=== PATIENT | male | born 1960 | race African-American/Black ===

== ENCOUNTER 2020-01-04 17:50 | Inpatient (IN) | payer OTHER ==
[2020-01-04 19:09] VITALS: BMI 30.2
--- NOTE | 2020-01-04 19:31 | BHS.RME ---
Substance Use & Tx History - Substance Use History Heroin Substance amount: 10 bags Frequency of use: Daily Substance route: Inhalation (ex: sniffing or snorting) Date of Last Use: 01/04/20 - Last Treatment Date of last treatment: 05/04/2012-05/15/2012 Where was last treatment: Detox Physical/Psych/Mental Status - Behavior Eye Contact: Normal - Cooperativeness Cooperativeness: Reluctant - Thinking Thought Processes: Logical Thought content: Future oriented - Physical Health Problems Is patient presently having any pain?: Yes (generalized) Does patient presently have any injuries (include location): No Does patient currently have a fever: No Is patient : No COWS - Scale Resting Pulse: 2= AL 101-120 Sweatin=Flushed/Facial Moisture Restless Observation: 1= Difficult to Sit Still Pupil Size: 0= Normal to Room Light Bone or Joint Aches: 2= Severe Diffuse Aches Runny Nose/ Eye Tearin= Runny Nose/Eyes GI Upset > 30mins: 3= Vomiting/Diarrhea (vomiting x 3, diarrhea x 3) Tremor Observation: 2= Slight Tremor Visible Yawning Observation: 1= 1-2x During Session Anxiety or Irritability: 2=Irritable/Anxious Goose Flesh Skin: 3=Piloerection COWS Score: 20 Treatment Recommendation - Level of Care Level of Care: Opioid Treatment Program (OTP)
--- NOTE | 2020-01-04 21:09 | HP ---
COWS - Scale Resting Pulse: 2= DE 101-120 Sweatin=Flushed/Facial Moisture Restless Observation: 1= Difficult to Sit Still Pupil Size: 2= Moderately Dilated (Pupils = 3 mm) Bone or Joint Aches: 2= Severe Diffuse Aches Runny Nose/ Eye Tearin= Runny Nose/Eyes GI Upset > 30mins: 3= Vomiting/Diarrhea (vomiting x 3, diarrhea x 3) Tremor Observation: 4= Gross Tremor/Twitching Yawning Observation: 0= None Anxiety or Irritability: 2=Irritable/Anxious Goose Flesh Skin: 3=Piloerection COWS Score: 23 CIWA Score - Admission Criteria OASAS Guidelines: Admission for Medically Managed Detox: Requires at least one of the followin. CIWA greater than 12 2. Seizures within the past 24 hours 3. Delirium tremens within the past 24 hours 4. Hallucinations within the past 24 hours 5. Acute intervention needed for co occurring medical disorder 6. Acute intervention needed for co occurring psychiatric disorder 7. Severe withdrawal that cannot be handled at a lower level of care (continued vomiting, continued diarrhea, abnormal vital signs) requiring intravenous medication and/or fluids 8. Admitting History and Physical - Smoking History Smoking history: Never smoked - Alcohol/Substance Use Hx Alcohol Use: Yes Admission ROS [facility] - [facility] Chief Complaint: "Here to because I want to stop using heroin" Allergies/Adverse Reactions: Allergies Allergy/AdvReac Type Severity Reaction Status Date / Time No Known Allergies Allergy Verified 01/04/20 21:29 History of Present Illness: 59 yo w/ opioid withdrawal seeking detox. PAVAN: 0.0 UTox: FEN/MOP/BUP Denies seizures, blackouts, overdoses. Actively vomiting - Zofran ordered and given in [facility]. Heroin use since age 37. Uses 10 bags/day, Nasally. last used this afternoon. Has a Narcan kit @ home. Suboxone - illicit - last used yesterday - 4 mg. Alcohol use sincce age 19, Drinks 2 nips once/week. Denies nicotine use. PMHx; HTN, DM, PPD+ MHHx: Denies. Denies thoughts of harming self and others. SHx: Domiciled. Unemployed. Denies legal issues. Patient Name: Abel Carrington Date: 1960 Address: [address] [place] [address] Sex: Male Rx Written Rx Dispensed Drug Quantity Days Supply Prescriber Name Payment Method Dispenser 09/26/2019 09/29/2019 buprenorphine-naloxone 8-2 mg sl film 45 15 Michele Griffin Insurance [place] [employer] 09/19/2019 09/19/2019 buprenorphine-naloxone 8-2 mg sl film 30 10 LakRuben burkett MD Insurance [place] [employer] 09/07/2019 09/07/2019 buprenorphine-naloxone 8-2 mg sl film 30 10 LakRuben burkett MD Insurance [employer] 08/29/2019 08/29/2019 buprenorphine-naloxone 8-2 mg sl film 30 10 LakRuben burkett MD Insurance [employer] 08/20/2019 08/20/2019 suboxone 8 mg-2 mg sl film 30 10 LaksRuben MD Insurance [place] [employer] 08/13/2019 08/13/2019 buprenorphine-naloxone 8-2 mg sl film 21 7 Ruben Perry MD Medicaid [place] [employer] 08/06/2019 08/06/2019 suboxone 8 mg-2 mg sl film 15 5 LaksRuben MD Medicaid [place] [employer] 03/12/2019 03/12/2019 buprenorphine-naloxone 8-2 mg sl film 63 21 Sheldon Nur [place] [employer] 02/12/2019 02/12/2019 suboxone 8 mg-2 mg sl film 90 30 [place] [employer] 01/15/2019 01/15/2019 suboxone 8 mg-2 mg sl film 90 30 [place]ldon [place]ur [place] [employer] Date: 03/07/1961 Address: [address] [place] [address] Sex: Male Rx Written Rx Dispensed Drug Quantity Days Supply Prescriber Name Payment Method Dispenser 07/30/2019 07/30/2019 buprenorphine-naloxone 8-2 mg sl film 14 7 Ruben Perry MD Other [place] [employer] 07/23/2019 07/23/2019 buprenorphine-naloxone 8-2 mg sl film 14 7 Ruben Perry MD Other [employer] 07/16/2019 07/16/2019 buprenorphine-naloxone 8-2 mg sl film 14 7 Ruben Perry MD Other [place] [employer] 07/09/2019 07/09/2019 buprenorphine-naloxone 8-2 mg sl film 14 7 LaksRuben MD Other [employer] 07/02/2019 07/02/2019 buprenorphine-naloxone 8-2 mg sl film 14 7 LaksRuben MD Other [employer] Exam Limitations: No Limitations - Ebola screening Have you traveled outside of the country in the last 21 days: No (COVID in past. ) Have you had contact with anyone from an Ebola affected area: No Have you been sick,other than usual withdrawal symptoms: No Do you have a fever: No - Review of Systems Constitutional: Chills, Diaphoresis, Changes in sleep (Difficulty staying asleep) EENT: reports: Blurred Vision, Nose Congestion Respiratory: reports: No Symptoms reported Cardiac: reports: No Symptoms Reported GI: reports: Nausea, Vomiting : reports: No Symptoms Reported Musculoskeletal: reports: No Symptoms Reported Integumentary: reports: No Symptoms Reported Neuro: reports: Headache (Frontal achy headache "6"), Tremors Endocrine: reports: No Symptoms Reported Hematology: reports: No Symptoms Reported Psychiatric: reports: Agitated, Anxious Other Systems: Reviewed and Negative Patient History - Patient Medical History Hx Anemia: No Hx Asthma: No Hx Chronic Obstructive Pulmonary Disease (COPD): No Hx Cancer: No Hx Cardiac Disorders: No Hx Congestive Heart Failure: No Hx Hypertension: No Hx Hypercholesterolemia: No Hx Pacemaker: No HX Cerebrovascular Accident: No Hx Seizures: No Hx Dementia: No Hx Diabetes: Yes (on medication) Hx Gastrointestinal Disorders: No Hx Liver Disease: No Hx Genitourinary Disorders: No Hx Sexually Transmitted Disorders: No Hx Renal Disease (ESRD): No Hx Thyroid Disease: No Hx Human Immunodeficiency Virus (HIV): No Hx Hepatitis C: No Hx Depression: No Hx Suicide Attempt: No Hx Bipolar Disorder: No Hx Schizophrenia: No - Patient Surgical History Past Surgical History: No Hx Neurologic Surgery: No Hx Cataract Extraction: No Hx Cardiac Surgery: No Hx Lung Surgery: No Hx Breast Surgery: No Hx Breast Biopsy: No Hx Abdominal Surgery: No Hx Appendectomy: No Hx Cholecystectomy: No Hx Genitourinary Surgery: No Hx Orthopedic Surgery: No Anesthesia Reaction: No - PPD History Previous Implant?: Yes Documented Results: Positive w/proof Implanted On Prior R Admission?: Yes Date: 01/25/11 Results: positive PPD to be Administered?: No - Smoking Cessation Smoking history: Never smoked Hx Chewing Tobacco Use: No Initiated information on smoking cessation: No - Substance & Tx. History Hx Alcohol Use: No Hx Substance Use: Yes Substance Use Type: Alcohol, Heroin, Opiates Hx Substance Use Treatment: Yes (detox, rehab, past Suboxone) - Substances abused Heroin Substance route: Inhalation Frequency: Daily Amount used: 10 bags Age of first use: 37 Date of last use: 01/04/20 Admission Physical Exam [facility] - Vital Signs Vital Signs: Vital Signs - 24 hr 01/04/20 19:06 Temperature 96.8 F L Pulse Rate 104 H Respiratory 21 H Rate Blood Pressure 166/97 - Physical General Appearance: Yes: Nourished, Moderate Distress, Obese, Tremorous, Irritable, Sweating, Anxious HEENTM: Yes: EOMI, Hearing grossly Normal, Normocephalic, Normal Voice, ROMÁN (Pupils = 3 mm), Pharynx Normal, Nasal Congestion Respiratory: Yes: Lungs Clear, Normal Breath Sounds, No Respiratory Distress Neck: Yes: No masses,lesions,Nodules, Supple Breast: Yes: Breast Exam Deferred Cardiology: Yes: Regular Rhythm, Regular Rate, S1, S2 Abdominal: Yes: Flat, Soft, Increased Bowel Sounds, Protuberent, Tenderness (Mid epigastric tenderness upon palpation. No guarding. No rebound.), Other (Active vomiting) Genitourinary: Yes: Within Normal Limits Back: Yes: Normal Inspection Musculoskeletal: Yes: full range of Motion, Gait Steady Extremities: Yes: Normal Capillary Refill, Tremors Neurological: Yes: Fully Oriented, Alert, Motor Strength 5/5, Normal Response Integumentary: Yes: Normal Color, Warm, Moist (Increased facial moisture) Lymphatic: Yes: Within Normal Limits - Diagnostic (1) Alcohol use disorder Current Visit: Yes Status: Chronic (2) Opioid dependence with withdrawal Current Visit: Yes Status: Acute (3) Obesity (BMI 30.0-34.9) Current Visit: Yes Status: Chronic (4) Epigastric abdominal tenderness Current Visit: Yes Status: Acute Qualifiers: Presence of rebound: present Qualified Code(s): R10.826 - Epigastric rebound abdominal tenderness Comment: No guarding. No rebound. (5) DM Diabetes mellitus type 2 Current Visit: No Status: Active (6) History of positive PPD Current Visit: Yes Status: Chronic Cleared for Admission [facility] - Detox or Rehab [facility] Level of Care: Medically Managed Detox Regimen/Protocol: Methadone Claeared for Rehab Admission: No Breathalyzer - Breathalyzer Breathalyzer: 0 Urine Drug Screen - Test Device Lot number: [id number] Expiration date: 11/19/21 - Control Is test valid?: Yes - Results Drug screen NEGATIVE: No Urine drug screen results: FEN-Fentanyl, MOP-Opiates, BUP-Suboxone Inpatient Rehab Admission - Rehab Decision to Admit Inpatient rehab admission?: No
[2020-01-04] MEDS ORDERED: TRIMETHOBENZAMIDE HCL 200MG/2ML INJ IM ONE ×2 (21:11→21:41)
[2020-01-04] MEDS ORDERED: ONDANSETRON *ODT* 4 MG TABLET SL ONE (21:16)
[2020-01-04] MEDS ORDERED: ONDANSETRON *ODT* 4 MG TABLET ONE (21:26)
[2020-01-04] MEDS ORDERED: ACETAMINOPHEN 325 MG TABLET (FP) PO PRN ×2 (21:35)
[2020-01-04] MEDS ORDERED: METHOCARBAMOL 500 MG TABLET PO PRN (21:35)
[2020-01-04] MEDS ORDERED: MAGNESIUM HYDROX 2400MG/30ML ORAL SUSPENSION 30 ML CUP PO PRN (21:35)
[2020-01-04] MEDS ORDERED: NICOTINE POLACRILEX 2 MG GUM BUC PRN (21:35)
[2020-01-04] MEDS ORDERED: IBUPROFEN 400 MG TABLET (FP) PO PRN (21:35)
[2020-01-04] MEDS ORDERED: MAG HYDROX/AL HYDROX/SIMETH 30 ML UNIT-DOSE CUP PO PRN (21:35)
[2020-01-04] MEDS ORDERED: BISMUTH SUBSALICYLATE 524 MG/30 ML UD PO PRN (21:35)
[2020-01-04] MEDS ORDERED: cloNIDine HCL 0.1 MG TABLET PO PRN (21:35)
[2020-01-04] MEDS ORDERED: hydrOXYzine PAMOATE 25 MG CAPSULE (FP) PO PRN (21:35)
[2020-01-04] MEDS ORDERED: MENTHOL/PHENOL 1 EACH UD MM PRN (21:35)
[2020-01-04] MEDS ORDERED: METHADONE HCL 10 MG TABLET (FOR DETOX USE ONLY) PO ONE (21:35)
[2020-01-04] MEDS ORDERED: MAGNESIUM CITRATE 300 ML BOTTLE PO PRN (21:35)
[2020-01-04] MEDS ORDERED: ONDANSETRON *ODT* 4 MG TABLET SL PRN (21:35)
[2020-01-04] MEDS ORDERED: diazePAM 5 MG TABLET PO PRN (21:40)
[2020-01-04] MEDS ORDERED: PANTOPRAZOLE 20 MG TABLET PO ONE (21:46)
[2020-01-04] MEDS ORDERED: MELATONIN 5 MG TABLETS PO SCH (22:00)
[2020-01-04] MEDS ORDERED: THIAMINE HCL 100 MG TABLET (FP) PO SCH (22:00)
[2020-01-04] MEDS ORDERED: INSULIN (NOVOLOG) ASPART 100 UNITS/ML 10ML VIAL SQ ONE (23:34)
[2020-01-04] MEDS ORDERED: INSULIN SLIDING SCALE (NOVOLOG) 1 VIAL SQ ONE (23:40)
[2020-01-05 01:48] VITALS: TEMP 97.7
--- NOTE | 2020-01-05 02:04 | PN ---
[facility] Progress Note Note: Patient is vomiting coffee ground emesis intermittently. His blood sugar is over 600mg/dl. He is very weak and lethargic. 10 units of insulin administered SQ, blood sugar rechecked an hour later and is still over 600mg/dl. Patient is hypertensive, tarchycardic and unable to hold down fluid. Patient is to be transferred to emergency room for further evaluation. Endorsed to Dr. Kebede Vital Signs Temperature 97.7 F 01/05/20 01:46 Pulse Rate 121 H 01/05/20 02:04 Respiratory Rate 20 01/05/20 02:04 Blood Pressure 161/92 01/05/20 02:04 O2 Sat by Pulse Oximetry (%) 97 01/05/20 01:46 Laboratory Last Values POC Glucometer > 600 UNITS (80-120) 01/05/20 01:36 Action: Transfer patient to emergency room
[2020-01-05 02:05] VITALS: BP 161/92; PULSE 121
--- NOTE | 2020-01-05 09:04 | EKG ---
Test Reason : Blood Pressure : / mmHG Vent. Rate : 104 BPM Atrial Rate : 104 BPM P-R Int : 130 ms QRS Dur : 086 ms QT Int : 362 ms P-R-T Axes : 054 -03 -01 degrees QTc Int : 476 ms SINUS TACHYCARDIA NONSPECIFIC ST ABNORMALITY ABNORMAL ECG NO PREVIOUS ECGS AVAILABLE Confirmed by Ceci Guzmán ([id number]) on 01/05/2020 9:03:41 AM Referred By: Confirmed By:Ceci Guzmán
[2020-01-05] MEDS ORDERED: METHADONE (DETOX) 20 MG, METHADONE (DETOX) 5 MG PO ONE (10:00)
[2020-01-05] MEDS ORDERED: PANTOPRAZOLE 40 MG TABLET PO SCH (10:00)
[2020-01-05] MEDS ORDERED: PRENATAL VITAMINS W/ FOLIC ACID TABLET (FP) PO SCH (10:00)
[2020-01-06] MEDS ORDERED: METHADONE HCL 10 MG TABLET (FOR DETOX USE ONLY) PO ONE (10:00)
[2020-01-07] MEDS ORDERED: METHADONE (DETOX) 10 MG, METHADONE (DETOX) 5 MG PO ONE (10:00)
[2020-01-08] MEDS ORDERED: METHADONE HCL 10 MG TABLET (FOR DETOX USE ONLY) PO ONE (10:00)
[2020-01-09] MEDS ORDERED: METHADONE HCL 5 MG TABLET (FOR DETOX USE ONLY) PO ONE (06:00)
== END 2020-01-05 08:12 | disposition short-term general hospital (02) | DRG 773 ==
LOC: YASAS 17:50 → Y6N 21:45
PROVIDERS: ADMIT Allergy & Immunology; ATTEND Allergy & Immunology
PROC: HZ2ZZZZ Detoxification Services for Substance Abuse Treatment (ICD-10-PCS; principal; 2020-01-04)
DX: F11.23 Opioid dependence with withdrawal (principal); F10.10 Alcohol abuse, uncomplicated; K92.0 Hematemesis; R00.0 Tachycardia, unspecified; I10 Essential (primary) hypertension; E11.65 Type 2 diabetes mellitus with hyperglycemia; E66.9 Obesity, unspecified; Z68.30 Body mass index [BMI] 30.0-30.9, adult; R10.826 Epigastric rebound abdominal tenderness; R76.11 Nonspecific reaction to tuberculin skin test without active tuberculosis; Z79.84 Long term (current) use of oral hypoglycemic drugs; Z59.0 Homelessness
CPT/HCPCS: 82962; 93005; 93010; Q0162; U0003

== ENCOUNTER 2020-01-05 02:33 | Inpatient (IN) | payer OTHER ==
--- NOTE | 2020-01-05 03:16 | PDOC ---
Attending Attestation - Resident Resident Name: CabreraRuben - ED Attending Attestation I have performed the following: I have examined & evaluated the patient, The case was reviewed & discussed with the resident, I agree w/resident's findings & plan - HPI HPI: 01/05/20 03:59 Pt comes with elevated blood sugar; he has been vomiting since he quit heroin 3 days ago. Pt was given 10U reg insulin and yet his blood sugar is still is 600mg He vomited up his methadone. We will give more methadone here. - Physicial Exam PE: 01/05/20 04:00 Agree with resident exam - Medical Decision Making 01/05/20 04:01 Pt will be hydrated and get more reg insulin and methadone. 01/05/20 06:17 Pt has a blood sugar of 666; corrected Na of 142. Pt has a low normal K; we will replete with 3 bags of 10 mEq K IVPB as well as 40mEq PO K= Pt will be hydrated with a 2nd L of NSS Pt will be started on an insulin drip. We spoke to the ICU and day team will transfer him to the ICU 01/05/20 07:02 Discharge - Discharge Information Problems reviewed: Yes Clinical Impression/Diagnosis: Hyperglycemia Condition: Fair - Follow up/Referral - Patient Discharge Instructions - Post Discharge Activity
--- OUTSIDE RECORDS SUMMARY | 2020-01-05 03:25 | XMS ---
:1960 Author Organization [facility] Support Name Relationship Address Phone UE Unavailable Unavailable Unavailable CURTIS SISTER [address] [place] [address] Re-disclosure Warning The records that you are about to access may contain information from federally- assisted alcohol or drug abuse programs. If such information is present, then the following federally mandated warning applies: This information has been disclosed to you from records protected by federal confidentiality rules (42 CFR part 2). The federal rules prohibit you from making any further disclosure of this information unless further disclosure is expressly permitted by the written consent of the person to whom it pertains or as otherwise permitted by 42 CFR part 2. A general authorization for the release of medical or other information is NOT sufficient for this purpose. The Federal rules restrict any use of the information to criminally investigate or prosecute any alcohol or drug abuse patient.The records that you are about to access may contain highly sensitive health information, the redisclosure of which is protected by Article 27-F of the [facility] Public Health law. If you continue you may haveaccess to information: Regarding HIV / AIDS; Provided by facilities licensed or operated by the [facility] Office of Mental Health; or Provided by the [facility] Office for People With Developmental Disabilities. If such information is present, then the following [facility] mandated warning applies: This information has been disclosed to you from confidential records which are protected by state law. State law prohibits you from making any further disclosure of this information without the specific written consent of the person to whom it pertains, or as otherwise permitted by law. Any unauthorized further disclosure in violation of state law may result in a fine or shelter sentence or both. A general authorization for the release of medical or other information is NOT sufficient authorization for further disclosure. Insurance Providers Payer name Policy type Policy ID Covered Covered libertarian's Policy P annie / Coverage libertarian ID relationship to Lloyd Inf ormation type lloyd MEDICAID [id number] SP [id number]
[2020-01-05] MEDS ORDERED: SODIUM CHLORIDE 1,000 ML IV ONE (03:56)
[2020-01-05] MEDS ORDERED: METHADONE (DETOX) 20 MG, METHADONE (DETOX) 5 MG PO ONE (04:00)
--- NOTE | 2020-01-05 04:46 | PDOC ---
History of Present Illness - General Stated Complaint: VOMITING Time Seen by Provider: 01/05/20 03:15 History Source: Patient Exam Limitations: No Limitations - History of Present Illness Initial Comments: 01/05/20 04:54 59M PMH IDDM, heroin dependent sent from [facility] for 3 days of vomiting and hyperglycemia >600. Has not used heroin (nasally) x3 days. Vomiting and PO intolerance since stopping heroin; also having cramps. States this feels like withdrawal. Endorsing mild polyuria and mild increase in thirst. Denies f/c, n/v, dysuria, diarrhea, cp/sob, cough, sore throat. 10U insulin en route. Past History - Medical History Allergies/Adverse Reactions: Allergies Allergy/AdvReac Type Severity Reaction Status Date / Time No Known Allergies Allergy Verified 01/04/20 21:29 Home Medications: Ambulatory Orders metFORMIN HCL [Glucophage] 850 mg PO BID@0700,1630 05/04/12 Anemia: No Asthma: No Cancer: No Cardiac Disorders: No CVA: No COPD: No CHF: No Dementia: No Diabetes: Yes (on medication) GI Disorders: No Disorders: No HTN: No Hypercholesterolemia: No Kidney Stones: No Liver Disease: No Seizures: No Thyroid Disease: No - Surgical History Abdominal Surgery: No Appendectomy: No Cardiac Surgery: No Cholecystectomy: No Lung Surgery: No Neurologic Surgery: No Orthopedic Surgery: No - Reproductive History Testicular Surgery: No - Psycho-Social/Smoking History Smoking History: Never smoked Review of Systems - Review of Systems Comments:: 01/05/20 08:09 CONSTITUTIONAL: Denies F / C HEENT: Denies sore throat, rhinorrhea RESP: Denies SOB, cough CARD: Denies chest pain GI: +n/v, cramp : +frequency. Denies dysuria NEURO: Denies numbness, tingling, weakness MSK: Denies back pain SKIN: Denies rashes *Physical Exam - Physical Exam 01/05/20 08:09 GEN: NAD, AAOx3. HEENT: NC/AT, EOMI, PERRL. No facial asymmetry. Normal voice. Supple neck w/ FROM. CV: S1/S2, RRR, no m/r/g LUNG: CTAB, no wheezes, crackles, rales, rhonchi. GI: Soft, ndnt, +BS, no guarding, no rebound. No masses. MSK: No obvious deformities of all extremities. SKIN: Warm, dry, no rashes appreciated. PSYCH: Normal mood and affect. NEURO: Moving all extremities well. ED Treatment Course - LABORATORY CBC & Chemistry Diagram: 01/05/20 04:55 01/05/20 04:55 - RADIOLOGY Radiology Studies Ordered: Category Date Time Status CXRPORT [CHEST X-RAY PORTABLE*] [RAD] Stat Radiology 01/05/20 04:18 Ordered Medical Decision Making - Medical Decision Making 01/05/20 08:09 59M DM and opiate dependent with 3 days of vomiting and PO intolerant DDX DKA, HHS, withdrawal, UTI, other sources of infection - DKA labs - Fluids 01/05/20 06:18 labs reviewed w/ various abnormalities including elevated WBC, beta, anion gap, K3.4, glc 666 pH 7.39 likely HHS; mixed picture? pending UA Fluids, insulin gtt, K repletion ICU consulted admit 01/05/20 06:34 dw ICU resident; day team will see Discharge - Discharge Information Problems reviewed: Yes Clinical Impression/Diagnosis: Hyperglycemia, Opioid dependence Condition: Fair - Admission Yes - Follow up/Referral - Patient Discharge Instructions - Post Discharge Activity
[2020-01-05 05:15] LABS: BASO % 0.3 % (0-2.0); HEMOGLOBIN 16.6 GM/dL (11.7-16.9); LYMPH % 6.4 % (8-40); MCH 26.6 pg (25.7-33.7); MCHC 32.5 g/dl (32.0-35.9); MEAN CELL VOLUME 81.9 fl (80-96); MEAN PLT VOLUME 8.7 fl (7.5-11.1); MONO % 10.8 % (3.8-10.2); NEUT % 82.5 % (42.8-82.8); PLATELET COUNT 344 K/MM3 (134-434); RBC 6.24 M/mm3 (4.00-5.60); WHITE BLOOD COUNT 18.6 K/mm3 (4.0-10.0)
[2020-01-05 05:19] LABS: VENOUS BASE EXCESS -3.2 mmol/L (-2-2); VENOUS PCO2 34.8 mmHg (38-52); VENOUS PH 7.392 (7.310-7.410)
[2020-01-05 05:31] LABS: INR 1.07 (0.83-1.09); PROTHROMBIN TIME (PATIENT) 12.6 SEC (9.7-13.0)
[2020-01-05 05:34] LABS: ACTIVATED PTT 30.2 SECONDS (25.2-36.5)
[2020-01-05 05:45] LABS: ALBUMIN 3.9 g/dl (3.4-5.0); ALK PHOS 188 U/L (45-117); ANION GAP 19 MMOL/L (8-16); BLOOD UREA NITROGEN 27.9 mg/dL (7-18); CALCIUM 9.5 mg/dL (8.5-10.1); CHLORIDE 91 mmol/L (98-107); CO2 22 mmol/L (21-32); CREATININE 2.1 mg/dL (0.55-1.3); POTASSIUM 3.4 mmol/L (3.5-5.1); SGOT/AST 27 U/L (15-37); SGPT/ALT 27 U/L (13-61); SODIUM 132 mmol/L (136-145); TOT PROT 8.8 g/dl (6.4-8.2)
[2020-01-05] MEDS ORDERED: METHADONE HCL 10 MG TABLET ONE (05:49)
[2020-01-05] MEDS ORDERED: METHADONE HCL 5 MG TABLET ONE (05:50)
[2020-01-05] MEDS ORDERED: SODIUM CHLORIDE 0.9% 500 ML INFUS.BAG IV ONE ×2 (06:09)
[2020-01-05] MEDS ORDERED: POTASSIUM CHLORIDE TABS 20 MEQ TABLET.ER (FP) PO ONE ×2 (06:09→06:49)
[2020-01-05 06:11] LABS: GLUCOSE,RANDOM 666 mg/dL (74-106)
[2020-01-05] MEDS ORDERED: INSULIN REGULAR 100 UNITS in SODIUM CHLORIDE 99 ML IVPB SCH (06:30)
--- NOTE | 2020-01-05 07:21 | PDOC ---
*Physical Exam - Vital Signs Last Vital Signs Temp Pulse Resp BP Pulse Ox 99.7 F H 103 H 20 161/103 H 97 01/05/20 07:01 01/05/20 07:01 01/05/20 07:01 01/05/20 07:01 01/05/20 07:01 ED Treatment Course - LABORATORY CBC & Chemistry Diagram: 01/06/20 08:40 01/06/20 08:40 - ADDITIONAL ORDERS Additional order review: Laboratory Results 01/05/20 01/05/20 01/05/20 05:10 04:55 04:55 PT with INR 12.60 INR 1.07 PTT (Actin FS) 30.2 VBG pH 7.392 POC VBG pCO2 34.8 L POC VBG pO2 36.0 VBG HCO3 20.7 L VBG O2 Sat (Emmy) 69.0 L VBG Base Excess -3.2 L Sodium 132 L Potassium 3.4 L Chloride 91 L Carbon Dioxide 22 Anion Gap 19 H BUN 27.9 H Creatinine 2.1 H Est GFR (CKD-EPI)AfAm 39.04 Est GFR (CKD-EPI)NonAf 33.68 Random Glucose 666 H* Calcium 9.5 Total Bilirubin 1.0 AST 27 ALT 27 Alkaline Phosphatase 188 H Creatine Kinase 1192 H Creatine Kinase Index 0.3 CK-MB (CK-2) 4.6 H Troponin I < 0.02 Total Protein 8.8 H Albumin 3.9 Beta-Hydroxybutyrate 64.8 H 01/05/20 04:55 RBC 6.24 H MCV 81.9 MCHC 32.5 RDW 14.0 MPV 8.7 Neutrophils % 82.5 Lymphocytes % 6.4 L Monocytes % 10.8 H Eosinophils % 0.0 Basophils % 0.3 - Medications Given in the ED: ED Medications Discontinued Medications Generic Name Dose Route Start Last Admin Trade Name Freq PRN Reason Stop Dose Admin Sodium Chloride 1,000 mls @ 1,000 mls/hr 01/05/20 03:56 01/05/20 06:06 Normal Saline - IV 01/05/20 04:55 1,000 mls/hr ONCE ONE Administration Methadone HCl 20 mg/ Methadone 25 mg 01/05/20 04:00 01/05/20 06:06 HCl 5 mg PO 01/05/20 04:01 25 mg ONCE ONE Administration Potassium Chloride 40 meq 01/05/20 06:09 01/05/20 07:02 K-Dur - PO 01/05/20 06:10 Not Given ONCE ONE Sodium Chloride 1,000 ml 01/05/20 06:09 01/05/20 06:37 Normal Saline - IV 01/05/20 06:10 Not Given ONCE ONE Sodium Chloride 1,000 ml 01/05/20 06:09 01/05/20 06:36 Normal Saline - IV 01/05/20 06:10 1,000 ml ONCE ONE Administration Medical Decision Making - Medical Decision Making 01/05/20 07:21 Pt received on s/o from Dr. Cabrera. This is a 59 y/o male with hx of substance use disorder sent in from [facility] for elevated blood sugar. Labs reviewed. Laboratory Last Values WBC 18.6 K/mm3 (4.0-10.0) H 01/05/20 04:55 RBC 6.24 M/mm3 (4.00-5.60) H 01/05/20 04:55 Hgb 16.6 GM/dL (11.7-16.9) 01/05/20 04:55 Hct 51.0 % (35.4-49) H 01/05/20 04:55 MCV 81.9 fl (80-96) 01/05/20 04:55 MCH 26.6 pg (25.7-33.7) 01/05/20 04:55 MCHC 32.5 g/dl (32.0-35.9) 01/05/20 04:55 RDW 14.0 % (11.9-15.9) 01/05/20 04:55 Plt Count 344 K/MM3 (134-434) D 01/05/20 04:55 MPV 8.7 fl (7.5-11.1) 01/05/20 04:55 Absolute Neuts (auto) 15.4 K/mm3 (1.5-8.0) H 01/05/20 04:55 Neutrophils % 82.5 % (42.8-82.8) 01/05/20 04:55 Lymphocytes % 6.4 % (8-40) L 01/05/20 04:55 Monocytes % 10.8 % (3.8-10.2) H 01/05/20 04:55 Eosinophils % 0.0 % (0-4.5) 01/05/20 04:55 Basophils % 0.3 % (0-2.0) 01/05/20 04:55 Nucleated RBC % 0 % (0-0) 01/05/20 04:55 PT with INR 12.60 SEC (9.7-13.0) 01/05/20 04:55 INR 1.07 (0.83-1.09) 01/05/20 04:55 PTT (Actin FS) 30.2 SECONDS (25.2-36.5) 01/05/20 04:55 VBG pH 7.392 (7.310-7.410) 01/05/20 05:10 POC VBG pCO2 34.8 mmHg (38-52) L 01/05/20 05:10 POC VBG pO2 36.0 mmHg (28-48) 01/05/20 05:10 VBG HCO3 20.7 mmol/L (23-29) L 01/05/20 05:10 VBG O2 Sat (Emmy) 69.0 % (70-80) L 01/05/20 05:10 VBG Base Excess -3.2 mmol/L (-2-2) L 01/05/20 05:10 Sodium 132 mmol/L (136-145) L 01/05/20 04:55 Potassium 3.4 mmol/L (3.5-5.1) L 01/05/20 04:55 Chloride 91 mmol/L (98-107) L 01/05/20 04:55 Carbon Dioxide 22 mmol/L (21-32) 01/05/20 04:55 Anion Gap 19 MMOL/L (8-16) H 01/05/20 04:55 BUN 27.9 mg/dL (7-18) H 01/05/20 04:55 Creatinine 2.1 mg/dL (0.55-1.3) H 01/05/20 04:55 Est GFR (CKD-EPI)AfAm 39.04 01/05/20 04:55 Est GFR (CKD-EPI)NonAf 33.68 01/05/20 04:55 Random Glucose 666 mg/dL (74-106) H* 01/05/20 04:55 Calcium 9.5 mg/dL (8.5-10.1) 01/05/20 04:55 Total Bilirubin 1.0 mg/dL (0.2-1) 01/05/20 04:55 AST 27 U/L (15-37) 01/05/20 04:55 ALT 27 U/L (13-61) 01/05/20 04:55 Alkaline Phosphatase 188 U/L (45-117) H 01/05/20 04:55 Creatine Kinase 1192 U/L (26-308) H 01/05/20 04:55 Creatine Kinase Index 0.3 % (0.0-5.0) 01/05/20 04:55 CK-MB (CK-2) 4.6 ng/mL (0.5-3.6) H 01/05/20 04:55 Troponin I < 0.02 ng/ml (0.00-0.05) 01/05/20 04:55 Total Protein 8.8 g/dl (6.4-8.2) H 01/05/20 04:55 Albumin 3.9 g/dl (3.4-5.0) 01/05/20 04:55 Beta-Hydroxybutyrate 64.8 mg/dL (0.2-2.8) H 01/05/20 04:55 Case d/w ICU for admission. DDX includes HHS vs less likely DKA. 01/05/20 07:32 Pt started on insulin drip and fluids. Will order urine lytes and serum/urine osms. 01/05/20 12:33 Repeat BMP reviewed. Gap at 19. Will continue to give fluids and insulin. Laboratory Last Values WBC 18.6 K/mm3 (4.0-10.0) H 01/05/20 04:55 RBC 6.24 M/mm3 (4.00-5.60) H 01/05/20 04:55 Hgb 16.6 GM/dL (11.7-16.9) 01/05/20 04:55 Hct 51.0 % (35.4-49) H 01/05/20 04:55 MCV 81.9 fl (80-96) 01/05/20 04:55 MCH 26.6 pg (25.7-33.7) 01/05/20 04:55 MCHC 32.5 g/dl (32.0-35.9) 01/05/20 04:55 RDW 14.0 % (11.9-15.9) 01/05/20 04:55 Plt Count 344 K/MM3 (134-434) D 01/05/20 04:55 MPV 8.7 fl (7.5-11.1) 01/05/20 04:55 Absolute Neuts (auto) 15.4 K/mm3 (1.5-8.0) H 01/05/20 04:55 Neutrophils % 82.5 % (42.8-82.8) 01/05/20 04:55 Lymphocytes % 6.4 % (8-40) L 01/05/20 04:55 Monocytes % 10.8 % (3.8-10.2) H 01/05/20 04:55 Eosinophils % 0.0 % (0-4.5) 01/05/20 04:55 Basophils % 0.3 % (0-2.0) 01/05/20 04:55 Nucleated RBC % 0 % (0-0) 01/05/20 04:55 PT with INR 12.60 SEC (9.7-13.0) 01/05/20 04:55 INR 1.07 (0.83-1.09) 01/05/20 04:55 PTT (Actin FS) 30.2 SECONDS (25.2-36.5) 01/05/20 04:55 VBG pH 7.392 (7.310-7.410) 01/05/20 05:10 POC VBG pCO2 34.8 mmHg (38-52) L 01/05/20 05:10 POC VBG pO2 36.0 mmHg (28-48) 01/05/20 05:10 VBG HCO3 20.7 mmol/L (23-29) L 01/05/20 05:10 VBG O2 Sat (Emmy) 69.0 % (70-80) L 01/05/20 05:10 VBG Base Excess -3.2 mmol/L (-2-2) L 01/05/20 05:10 Sodium 137 mmol/L (136-145) 01/05/20 10:36 Potassium 3.6 mmol/L (3.5-5.1) 01/05/20 10:36 Chloride 96 mmol/L (98-107) L 01/05/20 10:36 Carbon Dioxide 22 mmol/L (21-32) 01/05/20 10:36 Anion Gap 19 MMOL/L (8-16) H 01/05/20 10:36 BUN 31.3 mg/dL (7-18) H 01/05/20 10:36 Creatinine 1.9 mg/dL (0.55-1.3) H 01/05/20 10:36 Est GFR (CKD-EPI)AfAm 44.06 01/05/20 10:36 Est GFR (CKD-EPI)NonAf 38.01 01/05/20 10:36 POC Glucometer 375 UNITS (80-120) 01/05/20 11:12 Random Glucose 461 mg/dL (74-106) H* 01/05/20 10:36 Calcium 10.1 mg/dL (8.5-10.1) 01/05/20 10:36 Total Bilirubin 1.0 mg/dL (0.2-1) 01/05/20 04:55 AST 27 U/L (15-37) 01/05/20 04:55 ALT 27 U/L (13-61) 01/05/20 04:55 Alkaline Phosphatase 188 U/L (45-117) H 01/05/20 04:55 Creatine Kinase 1192 U/L (26-308) H 01/05/20 04:55 Creatine Kinase Index 0.3 % (0.0-5.0) 01/05/20 04:55 CK-MB (CK-2) 4.6 ng/mL (0.5-3.6) H 01/05/20 04:55 Troponin I < 0.02 ng/ml (0.00-0.05) 01/05/20 04:55 Total Protein 8.8 g/dl (6.4-8.2) H 01/05/20 04:55 Albumin 3.9 g/dl (3.4-5.0) 01/05/20 04:55 Beta-Hydroxybutyrate 64.8 mg/dL (0.2-2.8) H 01/05/20 04:55 Urine Color Yellow 01/05/20 09:42 Urine Appearance Clear 01/05/20 09:42 Urine pH 5.0 (5.0-8.0) D 01/05/20 09:42 Ur Specific [place] 1.036 (1.010-1.035) H 01/05/20 09:42 Urine Protein 1+ (NEGATIVE) H 01/05/20 09:42 Urine Glucose (UA) 3+ (NEGATIVE) H 01/05/20 09:42 Urine Ketones 3+ (NEGATIVE) H 01/05/20 09:42 Urine Blood 2+ (NEGATIVE) H 01/05/20 09:42 Urine Nitrite Negative (NEGATIVE) 01/05/20 09:42 Urine Bilirubin Negative (NEGATIVE) 01/05/20 09:42 Urine Urobilinogen 0.2 mg/dL (0.2-1.0) 01/05/20 09:42 Ur Leukocyte Esterase Negative (NEGATIVE) 01/05/20 09:42 Urine WBC (Auto) 4 /uL (0-25.8) 01/05/20 09:42 Urine RBC (Auto) 7 /uL (0-23.9) 01/05/20 09:42 Urine Casts (Auto) 2 /uL (0-3.1) 01/05/20 09:42 U Epithel Cells (Auto) 3 /uL (0-25.1) 01/05/20 09:42 Urine Bacteria (Auto) 7 /uL (0-1359) 01/05/20 09:42 Urine Osmolality 704 mosm/kg (300-900) 01/05/20 09:42 Ur Random Creatinine 39.3 mg/dL (30-150) 01/05/20 09:42 U Random Total Protein 42.6 mg/dL (0-11.9) H 01/05/20 09:42 Ur Random Sodium < 18 MMOL/L (40-220) L 01/05/20 09:42 01/05/20 15:20 Case d/w Dr. Francisco Keller who accepts the pt for admission. Labs reviewed. Laboratory Tests 01/05/20 01/05/20 01/05/20 04:55 04:55 04:55 WBC 18.6 H RBC 6.24 H Hgb 16.6 Hct 51.0 H MCV 81.9 MCH 26.6 MCHC 32.5 RDW 14.0 Plt Count 344 D MPV 8.7 Absolute Neuts (auto) 15.4 H Neutrophils % 82.5 Lymphocytes % 6.4 L Monocytes % 10.8 H Eosinophils % 0.0 Basophils % 0.3 Nucleated RBC % 0 PT with INR 12.60 INR 1.07 PTT (Actin FS) 30.2 VBG pH POC VBG pCO2 POC VBG pO2 VBG HCO3 VBG O2 Sat (Emmy) VBG Base Excess Sodium 132 L Potassium 3.4 L Chloride 91 L Carbon Dioxide 22 Anion Gap 19 H BUN 27.9 H Creatinine 2.1 H Est GFR (CKD-EPI)AfAm 39.04 Est GFR (CKD-EPI)NonAf 33.68 Random Glucose 666 H* Hemoglobin A1c % Calcium 9.5 Total Bilirubin 1.0 AST 27 ALT 27 Alkaline Phosphatase 188 H Creatine Kinase 1192 H Creatine Kinase Index 0.3 CK-MB (CK-2) 4.6 H Troponin I < 0.02 Total Protein 8.8 H Albumin 3.9 Triglycerides 346 H Cholesterol 324 H Total LDL Cholesterol 215 H HDL Cholesterol 58 Beta-Hydroxybutyrate 64.8 H 01/05/20 01/05/20 05:10 05:30 WBC RBC Hgb Hct MCV MCH MCHC RDW Plt Count MPV Absolute Neuts (auto) Neutrophils % Lymphocytes % Monocytes % Eosinophils % Basophils % Nucleated RBC % PT with INR INR PTT (Actin FS) VBG pH 7.392 POC VBG pCO2 34.8 L POC VBG pO2 36.0 VBG HCO3 20.7 L VBG O2 Sat (Emmy) 69.0 L VBG Base Excess -3.2 L Sodium Potassium Chloride Carbon Dioxide Anion Gap BUN Creatinine Est GFR (CKD-EPI)AfAm Est GFR (CKD-EPI)NonAf Random Glucose Hemoglobin A1c % 13.7 H Calcium Total Bilirubin AST ALT Alkaline Phosphatase Creatine Kinase Creatine Kinase Index CK-MB (CK-2) Troponin I Total Protein Albumin Triglycerides Cholesterol Total LDL Cholesterol HDL Cholesterol Beta-Hydroxybutyrate Discharge - Discharge Information Problems reviewed: Yes Clinical Impression/Diagnosis: Hyperglycemia, Opioid dependence Condition: Improved - Admission Yes - Follow up/Referral - Patient Discharge Instructions - Post Discharge Activity
[2020-01-05] MEDS ORDERED: KCL 10 MEQ IVPB 30 MEQ/300 ML INFUS.BAG IVPB ONE (08:12)
[2020-01-05] MEDS: KCL 10 MEQ IVPB 10 MEQ/100 ML INFUS.BAG IVPB SCH ×3 (08:15→12:54)
--- NOTE | 2020-01-05 08:53 | EKG ---
Test Reason : Blood Pressure : / mmHG Vent. Rate : 107 BPM Atrial Rate : 107 BPM P-R Int : 128 ms QRS Dur : 084 ms QT Int : 374 ms P-R-T Axes : 071 -17 001 degrees QTc Int : 499 ms SINUS TACHYCARDIA WITH OCCASIONAL PREMATURE VENTRICULAR COMPLEXES T WAVE ABNORMALITY, CONSIDER LATERAL ISCHEMIA ABNORMAL ECG WHEN COMPARED WITH ECG OF 04-JAN-2020 20:48, PREMATURE VENTRICULAR COMPLEXES ARE NOW PRESENT Confirmed by Ceci Guzmán ([id number]) on 01/05/2020 8:53:15 AM Referred By: Confirmed By:Ceci Guzmán
[2020-01-05 10:54] LABS: EPI CELLS 3 /uL (0-25.1); HYALINE CASTS 2 /uL (0-3.1); URINE APPEARANCE CLEAR; URINE BACTERIA 7 /uL (0-1359); URINE BILIRUBIN NEGATIVE (NEGATIVE); URINE COLOR YELLOW; URINE GLUCOSE (UA) 3+ (NEGATIVE); URINE KETONE 3+ (NEGATIVE); URINE LEUK ESTERASE NEGATIVE (NEGATIVE); URINE NITRITE NEGATIVE (NEGATIVE); URINE PROTEIN 1+ (NEGATIVE); URINE RBC 7 /uL (0-23.9); URINE UROBILINOGEN 0.2 mg/dL (0.2-1.0); URINE WBC 4 /uL (0-25.8)
[2020-01-05 11:45] LABS: BLOOD UREA NITROGEN 31.3 mg/dL (7-18); CALCIUM 10.1 mg/dL (8.5-10.1); CREATININE 1.9 mg/dL (0.55-1.3); POTASSIUM 3.6 mmol/L (3.5-5.1)
[2020-01-05 12:26] LABS: CREATININE, URINE RANDOM 39.3 mg/dL (30-150)
[2020-01-05 14:04] LABS: CALCIUM 9.9 mg/dL (8.5-10.1); CREATININE 2.1 mg/dL (0.55-1.3)
--- NOTE | 2020-01-05 15:26 | PN ---
Progress Note (short form) - Note Progress Note: S: 59 yo M with h/o T2DM, Heroin abuse who was admitted from [facility] last night due to NB/NB emesis and persistent hyperglycemia of 660. Patient was placed on insulin gtt due to suspected HHS and was accepted to ICU subsequently. Patient's anion gap at peak was 19 with most recent lab draw of 11. Bicarb never decreased past 21. Patient reports he's been diagnosed as a diabetic for 6 months for which he was prescribed Metformin. Patient reports he did not take his medication and he has been using heroin. Patient has long-standing history of heroin usage which is why he wanted to receive detoxification at [facility]. PMHx: as above SHx: None FamHx: DM both sides SoHx: Tobacco - None Alcohol - Socially (2 nips at one time /week) Drugs - Heroin last use afternoon 01/02; illicit use of Suboxone 01/02 Vital Signs Temperature 98.5 F 01/05/20 12:54 Pulse Rate 110 H 01/05/20 12:54 Respiratory Rate 19 01/05/20 12:54 Blood Pressure 128/90 01/05/20 12:54 O2 Sat by Pulse Oximetry (%) 99 01/05/20 12:54 PE: Gen: NAD, awake, alert, oriented x3 HEENT: NC/AT, MINAL, EOMI without nystagmus, dry mucosa Neck: No JVD LUNG: CTA b/l without wheezes or rales. On RA CARD: Tachycardic with regular rhythm, no murmrus ABD: Soft, Nt/ND, +BS EXT: No edema CBC, BMP 01/05/20 04:55 01/05/20 13:22 Assessment/Plan: Starvation Ketosis Hyperglycemia Acute Kidney Injury Reactive Leukocytosis Opiate Abuse Disorder requiring detox --Given correction of anion gap and hyperglycemia quickly with minimal insulin gtt suspect patient has starvation ketosis on top of hyperglycemia --Will transition patient off of insulin gtt to long-term therapy (previously prescribed 850mg BID PO Metformin; however noncompliant) --Continue IVF hydration --FeNa 0.7% indicating pre-renal azotemia --Avoid nephrotoxins --Will discuss with [facility] Detoxification facility about potential dispo either later in day vs. tomorrow AM based on patient trajectory --Imaging reviewed --Patient received Methadone 25mg dose today --Add-on A1c; add-on lipid panel --Insulin sliding scale for coverage --Can resume diabetic diet; will cover with long-acting insulin (Levemir 5U once; due to insulin naivety) Dispo: Will return to detox after acute issues have resolved DO Wilner Hoffman IM
--- OUTSIDE RECORDS SUMMARY | 2020-01-05 15:26 | XMS ---
:1960 Author Organization [facility] Support Name Relationship Address Phone UE, UNEMPLOYED Unavailable Unavailable Unavailable UE Unavailable Unavailable Unavailable LAZARO ACEVEDO [address] [place] [address] LAZARO ACEVEDO [address] [place] [address] Re-disclosure Warning The records that you are [...] is protected by Article 27-F of the [facility] Public Health law. If you continue you may haveaccess to information: Regarding HIV / AIDS; Provided by facilities licensed or operated by the [facility] Office of Mental Health; or Provided by the [facility] Office for People With Developmental Disabilities. If such information is present, then the following [facility] mandated warning applies: This information has [...] law may result in a fine or assisted sentence or both. A general authorization for the release of medical or other information is NOT sufficient authorization for further disclosure. Insurance Providers Payer name Policy type Policy ID Covered Covered democrat's Policy P annie / Coverage democrat ID relationship to [employer] Inf ormation type lloyd MEDICAID [id number]
[2020-01-05] MEDS ORDERED: SODIUM CHLORIDE 500 ML IV STA (15:36)
--- NOTE | 2020-01-05 15:36 | CONSULT ---
Consult - text type - Consultation Consultation Note: CCM: ICU admission request Reason for ICU request: hyperglycemia, AGMA CC/HPI: [id number] PMH IDDM, heroin dependent sent from [facility] after 3 days of vomiting and was noted to have hyperglycemia >600. Has not used heroin (nasally) x3 days. Vomiting and PO intolerance since stopping heroin; also having cramps, all c/w withdrawal. State he feels dehydrated. Denies f/c, n/v, dysuria, diarrhea, cp/sob, cough, sore throat. Ed course. Seen in ED. Pt was awake, INAD, hyperglycemic, had AG of 19. Beta Hydroxybuterate elevate >60. pH ok at 7.3. Given IV insulin and started on gtt . Also give 2L of IV fluid. Over the ensuing few hours patient's blood glucose improved and repeat labs improved with AG down to 11. Pt appears to have a combined picture of dehydration, resolving DKA and likely starvation ketosis. He has clinically improved. He blood glucose is under control. He wants to eat. He should be started on long acting insulin and sliding scale with insulin gtt stopped one hour after long acting agent given Allergies Allergy/AdvReac Type Severity Reaction Status Date / Time No Known Allergies Allergy Verified 01/04/20 21:29 PMHx: -IDDM -PSA PSx: denied Family: declined Social hx. + tob, + illicits, letoh PE: examined in ED Vital Signs Temp 98.5 F 01/05/20 12:54 Pulse 110 H 01/05/20 12:54 Resp 19 01/05/20 12:54 BP 128/90 01/05/20 12:54 Pulse Ox 99 01/05/20 12:54 Intake & Output 01/04/20 01/05/20 01/05/20 23:59 11:59 23:59 Weight 111.13 kg Other: Voiding Method Urinal Height 5 ft 9 in 6 ft Body Mass Index (BMI) 33.2 Weight Measurement Method Est/Stated by Patient Heent: PERRL, atraumatic, neck supple CV: regular, no m/r/g Abd: soft, + Bs Pulm: clear Ext: 2+ pulse in all 4 Neuro: non-focal CBC, BMP 01/05/20 04:55 01/05/20 13:22 A/ 59 y/o man with mix AGMA, likely starvation ketosis and DKA ,now improved on insulin and with hydration -Long acting insulin with sliding scale -cont hydration and electrolyte repletions as needed -symptom management. [place] ACNP
[2020-01-05] MEDS ORDERED: SODIUM CHLORIDE 0.45% 1,000 ML IV SCH (15:45)
[2020-01-05] MEDS ORDERED: INSULIN (LEVEMIR) 100 UNITS/ML UNITS SQ ONE (16:00)
[2020-01-05 16:41] LABS: BLOOD UREA NITROGEN 37.5 mg/dL (7-18); CREATININE 1.8 mg/dL (0.55-1.3); PHOSPHOROUS 2.3 mg/dL (2.5-4.9); POTASSIUM 4.5 mmol/L (3.5-5.1)
[2020-01-05] MEDS ORDERED: NAPH,MB-DB/K PH,MBDB POWDER PACKET PO ONE (16:42)
[2020-01-05] MEDS: INSULIN SLIDING SCALE (NOVOLOG) 1 VIAL SQ SCH ×2 (17:39→22:52)
[2020-01-05] MEDS ORDERED: NAPH,MB-DB/K PH,MBDB POWDER PACKET ONE (17:44)
[2020-01-06 03:18] LABS: CHOLESTEROL 324 mg/dL (50-200); HDL CHOLESTEROL 58 mg/dL (40-60); LDL CHOLESTEROL (ONLY SJRH) 215 mg/dL (5-100); TRIGLYCERIDES 346 mg/dL (0-150)
[2020-01-06] MEDS: INSULIN SLIDING SCALE (NOVOLOG) 1 VIAL SQ SCH ×2 (07:16→11:29)
[2020-01-06 09:44] LABS: BASO % 0.5 % (0-2.0); EOS % 0.1 % (0-4.5); HEMATOCRIT 51.5 % (35.4-49); HEMOGLOBIN 16.7 GM/dL (11.7-16.9); LYMPH % 6.3 % (8-40); MCH 26.4 pg (25.7-33.7); MCHC 32.4 g/dl (32.0-35.9); MEAN CELL VOLUME 81.4 fl (80-96); MONO % 10.8 % (3.8-10.2); NEUT % 82.3 % (42.8-82.8); PLATELET COUNT 319 K/MM3 (134-434); RBC 6.32 M/mm3 (4.00-5.60); RDW 14.3 % (11.9-15.9); WHITE BLOOD COUNT 22.6 K/mm3 (4.0-10.0)
[2020-01-06 10:01] LABS: ANION GAP 16 MMOL/L (8-16); BLOOD UREA NITROGEN 35.4 mg/dL (7-18); CALCIUM 9.1 mg/dL (8.5-10.1); CHLORIDE 99 mmol/L (98-107); CO2 24 mmol/L (21-32); CREATININE 1.6 mg/dL (0.55-1.3); GLUCOSE,RANDOM 306 mg/dL (74-106); MAGNESIUM 2.8 mg/dL (1.8-2.4); POTASSIUM 3.9 mmol/L (3.5-5.1); SODIUM 138 mmol/L (136-145)
[2020-01-06] MEDS ORDERED: SODIUM CHLORIDE 1,000 ML IV SCH ×2 (11:00→11:09)
[2020-01-06] MEDS ORDERED: METHADONE HCL 10 MG TABLET PO ONE ×2 (11:15→14:44)
--- NOTE | 2020-01-06 11:22 | PN ---
Progress Note (short form) - Note Progress Note: SUBJECTIVE: Seen and examined at bedside. Patient appears significantly uncomfortable, but is alert and oriented x3. States he is "kicking," meaning he is withdrawing. Gap noted to be at 16. Bicarb 24. Will restart fluids, give long-acting insulin and recheck BMP i #n 4 hours. OBJECTIVE Last Vital Signs Temp Pulse Resp BP Pulse Ox 99.2 F 84 18 147/91 100 01/06/20 07:26 01/06/20 07:26 01/06/20 07:26 01/06/20 07:26 01/06/20 07:26 GEN: NAD HEENT: NC/AT [facility] RESP: CTAB CARDS: RRR, -MRG ABD: soft, nt/nd +BS EXT: No swelling/Edema Neuro: Non-focal, A&OX3 Labs/Imaging: reviewed ASSESSMENT/PLAN 59-year-old male history of type 2 diabetes, heroin abuse was admitted from [facility] due to nonbloody nonbilious emesis and hyperglycemia to 660. Found to be in HOHS/DKA, rhabdomyolysis. #HHS/DKA in setting of uncontrolled diabetes with hyperglycemia Anion gap increased to 16 this morning, bicarb 24 ReCheck lactic acid and beta hydroxybutyrate Recheck BMP in 4 hours after giving long-acting insulin Fluids Replete potassium #Rhabdomyolysis with PHILIP Fluids at 150 cc/h Avoid nephrotoxic medications Trend creatinine, CPK #Elevated white count greater than 20 Patient denies any specific physical complaints other than withdrawals. Urine and chest x-ray are benign. Patient is afebrile Obtain CAT scan abdomen pelvis Blood cultures given history of heroin use will give 1 dose of ceftriaxone but hold further abx unless pt has fever or source of infection is found #Heroin Detox -methadone taper: today 20mg Visit type - Emergency Visit Emergency Visit: Yes ED Registration Date: 01/05/20 Care time: The patient presented to the Emergency Department on the above date and was hospitalized for further evaluation of their emergent condition. - New Patient This patient is new to me today: Yes Date on this admission: 01/06/20 - Critical Care Critical Care patient: No
[2020-01-06] MEDS ORDERED: CEFTRIAXONE 1,000 MG in DEXTROSE 5%-WATER - 50 ML IVPB ONE (11:23)
[2020-01-06] MEDS ORDERED: INSULIN (LEVEMIR) 100 UNITS/ML UNITS SQ ONE (11:25)
[2020-01-06] MEDS: INSULIN (LEVEMIR) 100 UNITS/ML UNITS SQ SCH ×2 (11:28→21:19)
[2020-01-06] MEDS ORDERED: CEFTRIAXONE 1 GM/50 ML BAG ONE (11:55)
[2020-01-06 12:58] LABS: ANISOCYTOSIS 0; MACROCYTOSIS 0; PLATELET ESTIMATE DECREASED
[2020-01-06 14:21] LABS: ANION GAP 19 MMOL/L (8-16); BLOOD UREA NITROGEN 33.7 mg/dL (7-18); CHLORIDE 99 mmol/L (98-107); CO2 20 mmol/L (21-32); CREATININE 1.4 mg/dL (0.55-1.3); GLUCOSE,RANDOM 290 mg/dL (74-106); SODIUM 137 mmol/L (136-145)
[2020-01-06] MEDS ORDERED: METHADONE HCL 10 MG TABLET ONE (15:33)
[2020-01-06] MEDS ORDERED: DEXTROSE 50%-WATER - 25 GM/50 ML VIAL IVPUSH PRN (16:11)
[2020-01-06] MEDS ORDERED: INSULIN REGULAR HUMAN 100 UNITS/ML *VIAL IVPUSH ONE ×2 (16:12→18:00)
[2020-01-06] MEDS ORDERED: SODIUM CHLORIDE 1,000 ML IV STA ×2 (16:13→21:57)
[2020-01-06] MEDS ORDERED: INSULIN REGULAR 100 UNITS in SODIUM CHLORIDE 99 ML IVPB SCH (16:15)
[2020-01-06 18:01] VITALS: BMI 29.5
[2020-01-06] MEDS: ONDANSETRON 4 MG/2 ML VIAL IVPUSH PRN (18:15)
[2020-01-06] MEDS ORDERED: DEXTROSE 5%-NORMAL SALINE 1,000 ML IV SCH (20:15)
--- NOTE | 2020-01-06 20:28 | PN ---
Progress Note (short form) - Note Progress Note: PULM/CCM 59 yo M with h/o T2DM, Heroin abuse who was admitted from [facility] due to NB/NB emesis and persistent hyperglycemia of 660. Patient was placed on insulin gtt du e to suspected HHS and was accepted to ICU. Patient reports he's been diagnosed as a diabetic for 6 months for which he was prescribed Metformin. Patient reports he did not take his medication and he has been using heroin. Patient has long-standing history of heroin usage which is why he wanted to receive detoxification at [facility]. Patient seen and examined in ICU. Patient awake, alert. Currently on insulin drip. Vital Signs Period Temp Pulse Resp BP Sys/Grey Pulse Ox Last 24 Hr 97.4 F-99.2 F 61-97 16-22 122-160/68-97 97-100 Active Medications Chlorhexidine Gluconate (Hibiclens For Decolonization -) 1 applic TP HS [facility] Dextrose (D50w (Vial) -) 25 gm IVPUSH PRN PRN PRN Reason: HYPOGLYCEMIA Insulin Human Regular 100 (units/ Sodium Chloride) 100 mls @ 11.113 mls/hr IVPB TITR ANDREWS; Protocol Last Admin: 01/06/20 17:37 Dose: 0.1 units/kg/hr, 11.113 mls/hr Documented by: Dextrose/Sodium Chloride (D5-Ns -) 1,000 mls @ 125 mls/hr IV ASDIR [facility] Insulin Detemir (Levemir Vial) 8 units SQ BID ANDREWS Last Admin: 01/06/20 11:28 Dose: 8 units Documented by: Mupirocin (Bactroban Ointment (For Decolonization) -) 1 applic NS BID [facility] Stop: 01/11/20 21:59 Ondansetron HCl (Zofran Injection) 4 mg IVPUSH Q6H PRN PRN Reason: NAUSEA Last Admin: 01/06/20 18:15 Dose: 4 mg Documented by: CBC, BMP 01/06/20 08:40 01/06/20 14:00 Heent: PERRL, atraumatic, neck supple CV: regular, no m/r/g Abd: soft, + Bs Pulm: clear Ext: 2+ pulse in all 4 Neuro: non-focal Intake & Output 01/03/20 01/04/20 01/05/20 01/06/20 23:59 23:59 23:59 23:59 Weight 111.13 kg 90.718 kg A/ 59 y/o man with mix AGMA admitted to the ICU for likely starvation ketosis and DKA. -Insulin gtt protocol -IVF -NPO for now -Zofran for N/V -cont hydration and electrolyte repletions as needed -Will check BMP q 4 hours -Will continue Levemir -D50W PRN for hypoglycemia Cande Keen ACNP [id number]
[2020-01-06 21:11] LABS: BLOOD UREA NITROGEN 33.1 mg/dL (7-18); CALCIUM 8.2 mg/dL (8.5-10.1); CREATININE 1.2 mg/dL (0.55-1.3); POTASSIUM 4.3 mmol/L (3.5-5.1)
[2020-01-06] MEDS: MUPIROCIN 2% TOPICAL OINTMENT FOR DECOLONIZATION NS SCH (21:21)
[2020-01-06] MEDS ORDERED: CHLORHEXIDINE GLUCONATE 4% CLEANSER FOR DECOLONIZATION TP SCH (22:00)
[2020-01-07] MEDS ORDERED: SODIUM CHLORIDE 1,000 ML IV STA (01:20)
[2020-01-07 01:39] LABS: BLOOD UREA NITROGEN 23.7 mg/dL (7-18); CALCIUM 7.4 mg/dL (8.5-10.1); POTASSIUM 3.3 mmol/L (3.5-5.1)
[2020-01-07] MEDS ORDERED: DEXTROSE 5%-NORMAL SALINE 1,000 ML IV SCH (02:15)
[2020-01-07] MEDS ORDERED: DEXTROSE 5%-WATER - 1,000 ML IV SCH (02:15)
[2020-01-07] MEDS: KCL 10 MEQ IVPB 10 MEQ/100 ML INFUS.BAG IVPB SCH ×2 (02:39→03:59)
[2020-01-07] MEDS: ONDANSETRON 4 MG/2 ML VIAL IVPUSH PRN (02:53)
[2020-01-07] MEDS ORDERED: METOPROLOL TARTRATE 5 MG/5 ML VIAL ONE ×2 (03:08→04:29)
[2020-01-07] MEDS: INSULIN SLIDING SCALE (NOVOLOG) 1 VIAL SQ SCH ×4 (05:59→22:22)
[2020-01-07] MEDS ORDERED: dilTIAZem HCL 25 MG/5 ML - 5 ML VIAL ONE (06:15)
[2020-01-07] MEDS ORDERED: METOPROLOL TARTRATE 5 MG/5 ML VIAL IVPUSH ONE ×2 (06:27)
[2020-01-07] MEDS ORDERED: DILTIAZEM INJECTION 125 MG in SODIUM CHLORIDE 100 ML IVPB SCH (06:30)
[2020-01-07] MEDS ORDERED: PT OWN MED DRAWER 7, Y5N ONE (09:45)
--- NOTE | 2020-01-07 10:13 | EKG ---
Test Reason : Blood Pressure : / mmHG Vent. Rate : 151 BPM Atrial Rate : 159 BPM P-R Int : 000 ms QRS Dur : 094 ms QT Int : 314 ms P-R-T Axes : 000 002 -41 degrees QTc Int : 497 ms ATRIAL FIBRILLATION WITH RAPID VENTRICULAR RESPONSE NONSPECIFIC T WAVE ABNORMALITY ABNORMAL ECG WHEN COMPARED WITH ECG OF 05-JAN-2020 05:26, ATRIAL FIBRILLATION HAS REPLACED SINUS RHYTHM T WAVE VARIATION Confirmed by HARSHAL PEREZ MD ([id number]) on 01/07/2020 10:12:51 AM Referred By: Confirmed By:HARSHAL PEREZ MD
[2020-01-07 10:32] LABS: HEMATOCRIT 43.5 % (35.4-49); HEMOGLOBIN 14.2 GM/dL (11.7-16.9); MCH 26.5 pg (25.7-33.7); MCHC 32.7 g/dl (32.0-35.9); MEAN CELL VOLUME 81.2 fl (80-96); MEAN PLT VOLUME 8.4 fl (7.5-11.1); PLATELET COUNT 240 K/MM3 (134-434); RBC 5.36 M/mm3 (4.00-5.60); RDW 13.9 % (11.9-15.9); WHITE BLOOD COUNT 11.3 K/mm3 (4.0-10.0)
[2020-01-07] MEDS: MUPIROCIN 2% TOPICAL OINTMENT FOR DECOLONIZATION NS SCH (10:45)
[2020-01-07] MEDS: INSULIN (LEVEMIR) 100 UNITS/ML UNITS SQ SCH ×2 (10:45→22:22)
[2020-01-07 11:13] LABS: BLOOD UREA NITROGEN 19.6 mg/dL (7-18); CALCIUM 7.7 mg/dL (8.5-10.1); MAGNESIUM 2.4 mg/dL (1.8-2.4); PHOSPHOROUS 2.9 mg/dL (2.5-4.9); POTASSIUM 3.9 mmol/L (3.5-5.1)
--- NOTE | 2020-01-07 12:52 | HOSP ---
Physical Examination Vital Signs: Vital Signs Temperature 98.6 F 01/07/20 10:00 Pulse Rate 70 01/07/20 11:37 Respiratory Rate 17 01/07/20 10:00 Blood Pressure 130/80 01/07/20 11:37 O2 Sat by Pulse Oximetry (%) 95 01/07/20 10:00 Constitutional: Yes: No Distress HENT: Yes: Atraumatic, Normocephalic Cardiovascular: Yes: Tachycardia, S1, S2 Respiratory: Yes: Regular, CTA Bilaterally Gastrointestinal: Yes: Normal Bowel Sounds Labs: CBC, BMP 01/07/20 10:12 01/07/20 10:12 Hospitalist Encounter Assessment: 59-year-old male history of type 2 diabetes & heroin use disorder was admitted from [facility] due to nonbloody nonbilious emesis. He was found to be hyperglycemic to 666 with a anion gap of 19 (with lactic acid 2.4), bicarb 22, and calculated osmolality of 311. VBG showed a pH WNL at 7.392 with /DECREASED HCO3 20.7, CO2 34.8. UA was notable for 3+ glucose, 3+ ketones and Beta hydroxybutyrate 64.8. Because the pH is >7.3, glucose>600 and bicarb >18, the patient likely has HHS. Patient was sent to ICU from the floor due to a worsening anion gap. Patient's clinical status improved with Insulin drip and anion gap has now closed. He is currently on ISS ACHS and levemir 8 units BID. With a UA showing 2+ Blood, 7 RBCs., and Cr kinase of 1192, BUN/Cr 27.9/2.1, patient had PHILIP 2/2 rhabdomylosis. Patient is receiving fluids at 150 ml/h. On Methadone taper at [facility]. Dosing is per order history on [employer] by Marion Perez NP. 15 mg PO (01/07/20) 10 mg PO (01/08/20) 5 mg PO 01/09/20 Visit type - Emergency Visit Emergency Visit: Yes ED Registration Date: 01/05/20 Care time: The patient presented to the Emergency Department on the above date and was hospitalized for further evaluation of their emergent condition. - New Patient This patient is new to me today: No - Critical Care Critical Care patient: No
--- NOTE | 2020-01-07 13:59 | PN ---
Teaching Attending Note Name of Resident: Silvestre Levy ATTENDING PHYSICIAN STATEMENT I saw and evaluated the patient. I reviewed the resident's note and discussed the case with the resident. I agree with the resident's findings and plan as documented. SUBJECTIVE: Patient seen and examined in the ICU. Awake and alert. Remains on IV Cardizem for rate control Denies CP or SOB. Intake & Output 01/04/20 01/05/20 01/06/20 01/07/20 23:59 23:59 23:59 23:59 Intake Total 1150 2382 Output Total 710 615 Balance 440 1767 Weight 245 lb 200 lb Last Vital Signs Temp Pulse Resp BP Pulse Ox 98.6 F 70 17 130/80 95 01/07/20 10:00 01/07/20 11:37 01/07/20 10:00 01/07/20 11:37 01/07/20 10:00 Active Medications Chlorhexidine Gluconate (Hibiclens For Decolonization -) 1 applic TP HS [facility] Last Admin: 01/06/20 21:21 Dose: 1 applic Documented by: Dextrose (D50w (Vial) -) 25 gm IVPUSH PRN PRN PRN Reason: HYPOGLYCEMIA Diltiazem HCl (Cardizem Cd -) 120 mg PO DAILY [facility] Last Admin: 01/07/20 12:33 Dose: 120 mg Documented by: Dextrose/Sodium Chloride (D5-Ns -) 1,000 mls @ 50 mls/hr IV ASDIR [facility] Last Admin: 01/07/20 02:39 Dose: 50 mls/hr Documented by: Insulin Aspart (Novolog Vial Sliding Scale -) 1 vial SQ ACHS [facility]; Protocol Last Admin: 01/07/20 12:04 Dose: 4 units Documented by: Insulin Detemir (Levemir Vial) 8 units SQ BID [facility] Last Admin: 01/07/20 10:45 Dose: 8 units Documented by: Methadone HCl 10 mg/ Methadone (HCl 5 mg) 15 mg PO ONCE ONE Stop: 01/07/20 13:35 Mupirocin (Bactroban Ointment (For Decolonization) -) 1 applic NS BID [facility] Stop: 01/11/20 21:59 Last Admin: 01/07/20 10:45 Dose: 1 applic Documented by: Ondansetron HCl (Zofran Injection) 4 mg IVPUSH Q6H PRN PRN Reason: NAUSEA Last Admin: 01/07/20 02:53 Dose: 4 mg Documented by: Heent: (-) Jaundice or Pallor CV: Afib, no m/r/g Abd: soft, + Bs Pulm: clear to auscultation Ext: 2+ pulse in all 4 Neuro: non-focal Laboratory Results - last 24 hr 01/06/20 01/06/20 01/06/20 08:40 14:00 16:54 WBC RBC Hgb Hct MCV MCH MCHC RDW Plt Count MPV Sodium 138 137 Potassium 3.9 5.0 Chloride 99 99 Carbon Dioxide 24 20 L Anion Gap 16 19 H BUN 35.4 H 33.7 H Creatinine 1.6 H 1.4 H Est GFR (CKD-EPI)AfAm 54.23 63.73 Est GFR (CKD-EPI)NonAf 46.79 54.99 POC Glucometer 296 Random Glucose 306 H 290 H Lactic Acid Calcium 9.1 9.0 Phosphorus Magnesium 2.8 H Creatine Kinase QNS Creatine Kinase Index CK-MB (CK-2) Beta-Hydroxybutyrate > 46.0 H 01/06/20 01/06/20 01/06/20 17:36 18:24 20:05 WBC RBC Hgb Hct MCV MCH MCHC RDW Plt Count MPV Sodium Potassium Chloride Carbon Dioxide Anion Gap BUN Creatinine Est GFR (CKD-EPI)AfAm Est GFR (CKD-EPI)NonAf POC Glucometer 285 290 135 Random Glucose Lactic Acid Calcium Phosphorus Magnesium Creatine Kinase Creatine Kinase Index CK-MB (CK-2) Beta-Hydroxybutyrate 01/06/20 01/06/20 01/06/20 20:20 20:24 21:03 WBC RBC Hgb Hct MCV MCH MCHC RDW Plt Count MPV Sodium 139 Potassium 4.3 Chloride 102 Carbon Dioxide 20 L Anion Gap 17 H BUN 33.1 H Creatinine 1.2 Est GFR (CKD-EPI)AfAm 76.79 Est GFR (CKD-EPI)NonAf 66.26 POC Glucometer 147 Random Glucose 167 H Lactic Acid 2.4 H* Calcium 8.2 L Phosphorus Magnesium Creatine Kinase Creatine Kinase Index CK-MB (CK-2) Beta-Hydroxybutyrate 01/06/20 01/06/20 01/06/20 22:09 23:14 23:58 WBC RBC Hgb Hct MCV MCH MCHC RDW Plt Count MPV Sodium Potassium Chloride Carbon Dioxide Anion Gap BUN Creatinine Est GFR (CKD-EPI)AfAm Est GFR (CKD-EPI)NonAf POC Glucometer 102 81 93 Random Glucose Lactic Acid Calcium Phosphorus Magnesium Creatine Kinase Creatine Kinase Index CK-MB (CK-2) Beta-Hydroxybutyrate 01/07/20 01/07/20 01/07/20 01:02 01:06 02:09 WBC RBC Hgb Hct MCV MCH MCHC RDW Plt Count MPV Sodium 140 Potassium 3.3 L Chloride 104 Carbon Dioxide 27 Anion Gap 10 BUN 23.7 H Creatinine 1.0 Est GFR (CKD-EPI)AfAm 95.73 Est GFR (CKD-EPI)NonAf 82.60 POC Glucometer 108 136 Random Glucose 125 H Lactic Acid Calcium 7.4 L Phosphorus Magnesium Creatine Kinase Creatine Kinase Index CK-MB (CK-2) Beta-Hydroxybutyrate 01/07/20 01/07/20 01/07/20 05:51 10:12 10:12 WBC 11.3 H RBC 5.36 Hgb 14.2 Hct 43.5 D MCV 81.2 MCH 26.5 MCHC 32.7 RDW 13.9 Plt Count 240 D MPV 8.4 Sodium 141 Potassium 3.9 Chloride 104 Carbon Dioxide 26 Anion Gap 10 BUN 19.6 H Creatinine 1.0 Est GFR (CKD-EPI)AfAm 95.73 Est GFR (CKD-EPI)NonAf 82.60 POC Glucometer 246 Random Glucose 243 H Lactic Acid Calcium 7.7 L Phosphorus 2.9 Magnesium 2.4 Creatine Kinase 415 H Creatine Kinase Index 0.4 CK-MB (CK-2) 1.8 Beta-Hydroxybutyrate 01/07/20 01/07/20 10:12 12:02 WBC RBC Hgb Hct MCV MCH MCHC RDW Plt Count MPV Sodium Potassium Chloride Carbon Dioxide Anion Gap BUN Creatinine Est GFR (CKD-EPI)AfAm Est GFR (CKD-EPI)NonAf POC Glucometer 229 Random Glucose Lactic Acid 1.2 Calcium Phosphorus Magnesium Creatine Kinase Creatine Kinase Index CK-MB (CK-2) Beta-Hydroxybutyrate IMP: AGMA likely due starvation ketosis and HHS Substance abuse PHILIP Rapid AFib Glycemic control Start PO Cardizem and taper drip PO as tolerated Methadone / Addiction evaluation O2 as needed Follow I & O VTE prophylaxis Cardiology evaluation Cardiac telemetry monitoring Dr Heller
[2020-01-07] MEDS ORDERED: METHADONE HCL 10 MG TABLET ONE (14:43)
[2020-01-07] MEDS ORDERED: METHADONE HCL 5 MG TABLET ONE (14:43)
[2020-01-07] MEDS ORDERED: METHADONE 10 MG, METHADONE 5 MG PO ONE (15:00)
--- NOTE | 2020-01-07 15:00 | HOSP ---
Subjective - Review of Symptoms Events since last encounter: Pt was admitted for HHS but increased AG, prompted concern for developing DKA. Was administered insulin gtt which decreased the AG. Developed new-onset Afib w/ RVR and received a cardizem gtt. Pt self-dc'd the cardizem gtt in a few hours. Pt deemed stable for downgrade from the ICU Subjective: Has low appetite, but does have increased thirst and increased urinary frequency. Doesn't want IVF. Denies h/o IVDU, just sniffing heorin. Denies h/o abscess or spine pain. General: Yes: Fatigue Pulmonary: Yes: Pleuritic Chest Pain. No: Cough Cardiovascular: Yes: Chest Pain, Palpitations Gastrointestinal: Yes: Nausea, Vomiting, Abdominal Pain Musculoskeletal: Yes: Back Pain, Joint Swelling Neurological: Yes: Weakness, Numbness Physical Examination Vital Signs: Vital Signs Temperature 98.6 F 01/07/20 10:00 Pulse Rate 70 01/07/20 11:37 Respiratory Rate 17 01/07/20 10:00 Blood Pressure 130/80 01/07/20 11:37 O2 Sat by Pulse Oximetry (%) 95 01/07/20 10:00 Constitutional: Yes: Well Nourished (Irritable) Eyes: Yes: Conjunctiva Clear, EOM Intact, Other (no pinpoint pupils) HENT: Yes: WNL Neck: Yes: WNL, Supple Cardiovascular: Yes: Regular Rate and Rhythm (no Afib noted on overhead tele monitor), S1, S2 Respiratory: Yes: Regular, CTA Bilaterally Gastrointestinal: Yes: Soft. No: Ascites, Tenderness, Epigastrium, Tenderness, Rebound Musculoskeletal: No: Back Pain (no Cspine, Tspine or Lspine tenderness to palpation) Extremities: No: Calf Tenderness Peripheral Pulses: Left Doralis Pedis: 2+, Right Dorsalis Pedis: 2+ Integumentary: Yes: WNL Neurological: Yes: Alert, Oriented, Cran Nerves II-XII Intact Labs: CBC, BMP 01/07/20 10:12 01/07/20 10:12 Hospitalist Encounter Assessment: 59M w/ pmh of IDDM, heroin admitted from [facility] for nausea and vomitting. Had HHS and concern for DKA. AG is normalized, pt PO intake has improved. Had new- onset Afib that resolved with Cardizem gtt. Patient accepted for downgrade from ICU. #HSS -sp insulin gtt -cw levemir 8U BID, ISS #New-onset Afib >CHADVASC2 ~ 2 >TSH --pending >UDS --pending >Echo --pending -cardiology consulted([facility]) -cardizem 120mg PO BID Visit type - Emergency Visit Emergency Visit: No - New Patient This patient is new to me today: Yes Date on this admission: 01/07/20 - Critical Care Critical Care patient: No
--- NOTE | 2020-01-07 17:14 | PN ---
Physical Exam: SUBJECTIVE: Patient seen and examined. Overnight, patient had new onset afib, with HR in the 170s. This was managed with 2 pushes of 5 mg lopressor. Then he was put on a cardizem drip. HR then decreased to 140s. Refused AM labs OBJECTIVE: Vital Signs Period Temp Pulse Resp BP Sys/Grey Pulse Ox Last 24 Hr 98.2 F-99.1 F 69-160 13-27 110-160/68-84 90-99 GENERAL: The patient is awake, alert, and fully oriented, in no acute distress. HEENT: Normal with no signs of trauma. No ptosis. moist mucous membranes. NECK: supple. LUNGS: Breath sounds equal, clear to auscultation bilaterally, no wheezes, no crackles, no accessory muscle use. HEART: Regular rate and rhythm, S1, S2 without murmur, rub or gallop. ABDOMEN: Soft, nontender, nondistended, normoactive bowel sounds, no guarding, no rebound EXTREMITIES: 2+ pulses, warm, well-perfused, no edema. NEUROLOGICAL: Normal speech, gait not observed. PSYCH: Normal mood, normal affect. Laboratory Results - last 24 hr 01/06/20 01/06/20 01/06/20 08:40 17:36 18:24 WBC RBC Hgb Hct MCV MCH MCHC RDW Plt Count MPV Sodium 138 Potassium 3.9 Chloride 99 Carbon Dioxide 24 Anion Gap 16 BUN 35.4 H Creatinine 1.6 H Est GFR (CKD-EPI)AfAm 54.23 Est GFR (CKD-EPI)NonAf 46.79 POC Glucometer 285 290 Random Glucose 306 H Lactic Acid Calcium 9.1 Phosphorus Magnesium 2.8 H Creatine Kinase QNS Creatine Kinase Index CK-MB (CK-2) 01/06/20 01/06/20 01/06/20 20:05 20:20 20:24 WBC RBC Hgb Hct MCV MCH MCHC RDW Plt Count MPV Sodium 139 Potassium 4.3 Chloride 102 Carbon Dioxide 20 L Anion Gap 17 H BUN 33.1 H Creatinine 1.2 Est GFR (CKD-EPI)AfAm 76.79 Est GFR (CKD-EPI)NonAf 66.26 POC Glucometer 135 Random Glucose 167 H Lactic Acid 2.4 H* Calcium 8.2 L Phosphorus Magnesium Creatine Kinase Creatine Kinase Index CK-MB (CK-2) 01/06/20 01/06/20 01/06/20 21:03 22:09 23:14 WBC RBC Hgb Hct MCV MCH MCHC RDW Plt Count MPV Sodium Potassium Chloride Carbon Dioxide Anion Gap BUN Creatinine Est GFR (CKD-EPI)AfAm Est GFR (CKD-EPI)NonAf POC Glucometer 147 102 81 Random Glucose Lactic Acid Calcium Phosphorus Magnesium Creatine Kinase Creatine Kinase Index CK-MB (CK-2) 01/06/20 01/07/20 01/07/20 23:58 01:02 01:06 WBC RBC Hgb Hct MCV MCH MCHC RDW Plt Count MPV Sodium 140 Potassium 3.3 L Chloride 104 Carbon Dioxide 27 Anion Gap 10 BUN 23.7 H Creatinine 1.0 Est GFR (CKD-EPI)AfAm 95.73 Est GFR (CKD-EPI)NonAf 82.60 POC Glucometer 93 108 Random Glucose 125 H Lactic Acid Calcium 7.4 L Phosphorus Magnesium Creatine Kinase Creatine Kinase Index CK-MB (CK-2) 01/07/20 01/07/20 01/07/20 02:09 05:51 10:12 WBC 11.3 H RBC 5.36 Hgb 14.2 Hct 43.5 D MCV 81.2 MCH 26.5 MCHC 32.7 RDW 13.9 Plt Count 240 D MPV 8.4 Sodium Potassium Chloride Carbon Dioxide Anion Gap BUN Creatinine Est GFR (CKD-EPI)AfAm Est GFR (CKD-EPI)NonAf POC Glucometer 136 246 Random Glucose Lactic Acid Calcium Phosphorus Magnesium Creatine Kinase Creatine Kinase Index CK-MB (CK-2) 01/07/20 01/07/20 01/07/20 10:12 10:12 12:02 WBC RBC Hgb Hct MCV MCH MCHC RDW Plt Count MPV Sodium 141 Potassium 3.9 Chloride 104 Carbon Dioxide 26 Anion Gap 10 BUN 19.6 H Creatinine 1.0 Est GFR (CKD-EPI)AfAm 95.73 Est GFR (CKD-EPI)NonAf 82.60 POC Glucometer 229 Random Glucose 243 H Lactic Acid 1.2 Calcium 7.7 L Phosphorus 2.9 Magnesium 2.4 Creatine Kinase 415 H Creatine Kinase Index 0.4 CK-MB (CK-2) 1.8 01/07/20 16:45 WBC RBC Hgb Hct MCV MCH MCHC RDW Plt Count MPV Sodium Potassium Chloride Carbon Dioxide Anion Gap BUN Creatinine Est GFR (CKD-EPI)AfAm Est GFR (CKD-EPI)NonAf POC Glucometer 193 Random Glucose Lactic Acid Calcium Phosphorus Magnesium Creatine Kinase Creatine Kinase Index CK-MB (CK-2) Active Medications Generic Name Dose Route Start Last Admin Trade Name Freq PRN Reason Stop Dose Admin Chlorhexidine Gluconate 1 applic 01/06/20 22:00 01/06/20 21:21 Hibiclens For Decolonization - TP 1 applic HS ANDREWS Administration Dextrose 25 gm 01/06/20 16:11 D50w (Vial) - IVPUSH PRN PRN HYPOGLYCEMIA Diltiazem HCl 120 mg 01/07/20 11:30 01/07/20 12:33 Cardizem Cd - PO 120 mg DAILY ANDREWS Administration Dextrose/Sodium Chloride 1,000 mls @ 50 mls/hr 01/07/20 02:15 01/07/20 02:39 D5-Ns - IV 50 mls/hr ASDIR ANDRE[facility] Administration Insulin Aspart 1 vial 01/07/20 07:00 01/07/20 12:04 Novolog Vial Sliding Scale - SQ 4 units ACHS ANDREWS Administration Protocol Insulin Detemir 8 units 01/06/20 10:00 01/07/20 10:45 Levemir Vial SQ 8 units BID ANDREWS Administration Mupirocin 1 applic 01/06/20 22:00 01/07/20 10:45 Bactroban Ointment (For Decolonization) - NS 01/11/20 21:59 1 applic BID ANDREWS Administration Ondansetron HCl 4 mg 01/06/20 18:00 01/07/20 02:53 Zofran Injection IVPUSH 4 mg Q6H PRN Administration NAUSEA ASSESSMENT/PLAN: 59-year-old male history of type 2 diabetes & heroin use disorder was admitted from [facility] due to nonbloody nonbilious emesis and found to be hyperglycemic to 666. Admitted to the ICU for management of HHS and rhabdomylosis ENDO #HHS -On admission, Glucose 666, UA: 3+ glucose, 3+ ketones, Beta hydroxybutyrate 64.8, - bicarb 22, - Anion gap 19 (Lactic acid 2.4), calculated osmolality of 311. -A1C 13.1 -VBG WNL pH 7.392, O2 36//DECREASED HCO3 20.7, CO2 34.8 -Because the pH is >7.3, glucose>600 and bicarb >18, the patient likely has HH -s/p insulin drip. anion gap has closed. - currently on ISS ACHS and levemir 8 units BID. Cardio EKG (01/04): sinus tachycardia w/ occasional premature ventricular complexes; T wave abnormality: consider lateral ischemia. 107 bpm, QTC 499 CK-MB 4.6, trop <0.02 #prolonged QTC #HLD: triglyceride 346, cholesterol 324, total LDL cholesterol 215 #New-onset afib -s/p cardizem drip -now, diltiazem 120 mg PO daily Pulm CXR: degenerative changes in shoulder with midline trachea, normal heart size, and no mediastinal widening. No infiltrate, nodule, or effusion REnal UA: 2+ Blood, 7 RBCs. Total random protein: 42.6, Urine random sodium <18 , Specific gravity INCREASED 1.036, 1+ protein , Urine osmolality 704, Random cr: 39.3 Cr kinase: 1192, CK-MB 4.6 BUN/Cr 27.9/2.1 #Rhabdomyolysis with PHILIP D5 NS @ 150 cc/h Avoid nephrotoxic medications Trend creatinine, CPK Levemir 8 units SQ BID, ISS ACHS GI zofran for N/V ID #Leukoyctosis -afebrile -urine and cxr unremarkable for infectious cause -CTAP: no evidence of abdominal abscess -f/u blood culture results -s/p one dose of ceftriaxone Psych #Heroin Detox On Methadone taper at [facility]. Dosing is per order history on [place] by Marion Perez NP. 15 mg PO (01/07/20) 10 mg PO (01/08/20) 5 mg PO 01/09/20 DISPO transfer to tele Visit type - Emergency Visit Emergency Visit: Yes ED Registration Date: 01/05/20 Care time: The patient presented to the Emergency Department on the above date and was hospitalized for further evaluation of their emergent condition. - New Patient This patient is new to me today: No - Critical Care Critical Care patient: No ATTENDING PHYSICIAN STATEMENT I saw and evaluated the patient. I reviewed the resident's note and discussed the case with the resident. I agree with the resident's findings and plan as documented. SUBJECTIVE: OBJECTIVE: ASSESSMENT AND PLAN:
[2020-01-07] MEDS ORDERED: DEXTROSE 50%-WATER - 25 GM/50 ML VIAL IVPUSH PRN (18:42)
[2020-01-07] MEDS ORDERED: ONDANSETRON 4 MG/2 ML VIAL IVPUSH PRN (18:42)
[2020-01-07] MEDS: DEXTROSE 5%-NORMAL SALINE 1,000 ML IV SCH (18:50)
--- NOTE | 2020-01-07 20:31 | ECHO ---
Version: 1 Name: AIDA ACEVEDO V Exam: Adult Echocardiogram Study Date: 01/07/2020, 3:28 PM Age: 59 Years MMode/2D Measurements & Calculations IVSd: 0.84 cm LVIDs: 2.8 cm LVIDd: 4.3 cm LVPWd: 0.97 cm LAV (MOD-bp): 57.0 ml ACS: 2.02 cm Ao root diam: 3.2 cm LVOT diam: 2.26 cm LA dimension: 3.4 cm Doppler Measurements & Calculations MV E max darrion: 62.2 cm/sec Med E/e': 12.0 MV A max darrion: 73.5 cm/sec Med Peak E' Darrion: 5.2 cm/sec MV E/A: 0.85 Lat E/e': 6.3 Lat Peak E' Darrion: 9.8 cm/sec Ao max P.8 mmHg MC(I,D): 3.6 cm Ao mean P.0 mmHg LV V1 mean: 64.5 cm/sec Ao V2 max: 148.0 cm/sec LV V1 mean P.03 mmHg Procedure A complete two-dimensional transthoracic echocardiogram was performed (2D, M-mode, Doppler and color flow Doppler). Left Ventricle The left ventricle is normal in size. Left ventricular systolic function is normal. Ejection Fractio n = >70%. Grade I diastolic dysfunction, (abnormal relaxation pattern). No regional wall motion abnormalities noted. Right Ventricle The right ventricle is grossly normal size. The right ventricular systolic function is normal. Atria The left atrial size is normal. Right atrial size is normal. Mildly redundant interatrial septum. Mitral Valve The mitral valve is grossly normal. There is trace to mild mitral regurgitation. Tricuspid Valve The tricuspid valve is not well visualized, but is grossly normal. There is mild tricuspid regurgita tion. Aortic Valve There is mild aortic sclerosis.;. No aortic regurgitation is present. Pulmonic Valve The pulmonic valve is not well visualized. Mild pulmonic valvular regurgitation. Great Vessels The aortic root is normal size. Pericardium/Pleura There is no pericardial effusion. Tech Comments TDS. Patient scanned supine. Summary Statements The left ventricle is normal in size. Left ventricular systolic function is normal. No regional wall motion abnormalities noted. Ejection Fraction = >70%. Grade I diastolic dysfunction, (abnormal relaxation pattern). There is trace to mild mitral regurgitation. There is mild tricuspid regurgitation. There is mild aortic sclerosis.; Mild pulmonic valvular regurgitation. There is no pericardial effusion. Zack Chirinos MD 01/07/2020, 8:31 PM Ordering Physician: Thompson Law Referring Physician: THOMPSON LAW Performed By: Lisa Bruner
--- NOTE | 2020-01-07 23:08 | PN ---
Teaching Attending Note Name of Resident: Thompson Ruiz ATTENDING PHYSICIAN STATEMENT I saw and evaluated the patient. I reviewed the resident's note and discussed the case with the resident. I agree with the resident's findings and plan as documented. SUBJECTIVE:Patient seen and examined at bedside, admitted for HHS, now resolved, still c/o nausea. VSS. OBJECTIVE: GA mild distress, AAox3, tired appearing HEENT dry MM, neck supple, no oral thrush, EOMI, acanthosis+ Chest CTAB, no crackles CVS s1, S2+, RRR Abd Soft, ND, mildly TTP, BS+ Ext no LE edema, no calf tenderness Vital Signs - 24 hr 01/07/20 01/07/20 01/07/20 00:00 02:00 03:05 Temperature 99.1 F Pulse Rate 85 79 153 H Respiratory 17 27 H 25 H Rate Blood Pressure 144/72 136/68 138/82 O2 Sat by Pulse 95 93 L 94 L Oximetry (%) 01/07/20 01/07/20 01/07/20 03:10 04:00 04:35 Temperature Pulse Rate 160 H 137 H 143 H Respiratory 19 Rate Blood Pressure 138/82 110/76 131/84 O2 Sat by Pulse 90 L Oximetry (%) 01/07/20 01/07/20 01/07/20 06:00 06:15 07:30 Temperature 99.1 F Pulse Rate 127 H 133 H 143 H Respiratory 17 Rate Blood Pressure 131/82 131/82 130/80 O2 Sat by Pulse 95 Oximetry (%) 01/07/20 01/07/20 01/07/20 08:00 08:29 08:41 Temperature Pulse Rate 73 73 Respiratory 18 17 Rate Blood Pressure 133/81 128/80 O2 Sat by Pulse 95 Oximetry (%) 01/07/20 01/07/20 01/07/20 10:00 11:37 12:00 Temperature 98.6 F Pulse Rate 70 70 69 Respiratory 17 14 Rate Blood Pressure 130/80 130/80 141/72 O2 Sat by Pulse 95 Oximetry (%) 01/07/20 01/07/20 01/07/20 14:00 16:00 18:45 Temperature 98.6 F 98 F Pulse Rate 69 70 72 Respiratory 13 15 18 Rate Blood Pressure 145/70 140/78 142/78 O2 Sat by Pulse Oximetry (%) 01/07/20 23:00 Temperature 98 F Pulse Rate 66 Respiratory 18 Rate Blood Pressure 140/66 O2 Sat by Pulse 98 Oximetry (%) Microbiology 01/06/20 20:24 Blood - Peripheral Venous Blood Culture - Preliminary NO GROWTH OBTAINED AFTER 24 HOURS, INCUBATION TO CONTINUE FOR 4 DAYS. 01/05/20 09:42 Urine - Urine Clean Catch Urine Culture - Final NO GROWTH OBTAINED Laboratory Results - last 24 hr 01/06/20 01/06/20 01/06/20 08:40 23:14 23:58 WBC RBC Hgb Hct MCV MCH MCHC RDW Plt Count MPV Sodium 138 Potassium 3.9 Chloride 99 Carbon Dioxide 24 Anion Gap 16 BUN 35.4 H Creatinine 1.6 H Est GFR (CKD-EPI)AfAm 54.23 Est GFR (CKD-EPI)NonAf 46.79 POC Glucometer 81 93 Random Glucose 306 H Lactic Acid Calcium 9.1 Phosphorus Magnesium 2.8 H Creatine Kinase QNS Creatine Kinase Index CK-MB (CK-2) 01/07/20 01/07/20 01/07/20 01:02 01:06 02:09 WBC RBC Hgb Hct MCV MCH MCHC RDW Plt Count MPV Sodium 140 Potassium 3.3 L Chloride 104 Carbon Dioxide 27 Anion Gap 10 BUN 23.7 H Creatinine 1.0 Est GFR (CKD-EPI)AfAm 95.73 Est GFR (CKD-EPI)NonAf 82.60 POC Glucometer 108 136 Random Glucose 125 H Lactic Acid Calcium 7.4 L Phosphorus Magnesium Creatine Kinase Creatine Kinase Index CK-MB (CK-2) 01/07/20 01/07/20 01/07/20 05:51 10:12 10:12 WBC 11.3 H RBC 5.36 Hgb 14.2 Hct 43.5 D MCV 81.2 MCH 26.5 MCHC 32.7 RDW 13.9 Plt Count 240 D MPV 8.4 Sodium 141 Potassium 3.9 Chloride 104 Carbon Dioxide 26 Anion Gap 10 BUN 19.6 H Creatinine 1.0 Est GFR (CKD-EPI)AfAm 95.73 Est GFR (CKD-EPI)NonAf 82.60 POC Glucometer 246 Random Glucose 243 H Lactic Acid Calcium 7.7 L Phosphorus 2.9 Magnesium 2.4 Creatine Kinase 415 H Creatine Kinase Index 0.4 CK-MB (CK-2) 1.8 01/07/20 01/07/20 01/07/20 10:12 12:02 16:45 WBC RBC Hgb Hct MCV MCH MCHC RDW Plt Count MPV Sodium Potassium Chloride Carbon Dioxide Anion Gap BUN Creatinine Est GFR (CKD-EPI)AfAm Est GFR (CKD-EPI)NonAf POC Glucometer 229 193 Random Glucose Lactic Acid 1.2 Calcium Phosphorus Magnesium Creatine Kinase Creatine Kinase Index CK-MB (CK-2) 01/07/20 22:16 WBC RBC Hgb Hct MCV MCH MCHC RDW Plt Count MPV Sodium Potassium Chloride Carbon Dioxide Anion Gap BUN Creatinine Est GFR (CKD-EPI)AfAm Est GFR (CKD-EPI)NonAf POC Glucometer 207 Random Glucose Lactic Acid Calcium Phosphorus Magnesium Creatine Kinase Creatine Kinase Index CK-MB (CK-2) Home Medications Medication Instructions Recorded NK [No Known Home Medication] 01/06/20 Current Medications Generic Name Dose Route Start Last Admin Trade Name Freq PRN Reason Stop Dose Admin Dextrose 25 gm 01/07/20 18:42 D50w (Vial) - IVPUSH PRN PRN HYPOGLYCEMIA Diltiazem HCl 120 mg 01/08/20 10:00 Cardizem Cd - PO DAILY ANDREWS Dextrose/Sodium Chloride 1,000 mls @ 50 mls/hr 01/07/20 18:42 01/07/20 18:50 D5-Ns - IV 50 mls/hr ASDIR ANDREWS Administration Insulin Aspart 1 vial 01/07/20 22:00 01/07/20 22:22 Novolog Vial Sliding Scale - SQ 4 units ACHS ANDREWS Administration Protocol Insulin Detemir 8 units 01/07/20 22:00 01/07/20 22:22 Levemir Vial SQ 8 units BID@0700,2200 ANDREWS Administration Methadone HCl 10 mg 01/08/20 10:00 Dolophine - PO 01/08/20 10:01 ONCE ONE Methadone HCl 5 mg 01/09/20 10:00 Dolophine - PO 01/09/20 10:01 ONCE ONE Ondansetron HCl 4 mg 01/07/20 18:42 Zofran Injection IVPUSH Q6H PRN NAUSEA ASSESSMENT AND PLAN: 59 M Uncontrolled T2DM with HHS HTN HLD PSA on Methadone Obesity Plan: Continue BID Levemir w/ ISS for strict glycemic control IVF with LR Diabetic diet Counseled on medication compliance, and cessation of drug use Obtain A1c/lipids/TFTs Will need stable OP follow up DVT ppx: SC AC
[2020-01-08] MEDS: INSULIN (LEVEMIR) 100 UNITS/ML UNITS SQ SCH ×2 (06:13→21:35)
[2020-01-08] MEDS: INSULIN SLIDING SCALE (NOVOLOG) 1 VIAL SQ SCH ×4 (06:13→21:36)
[2020-01-08 09:18] LABS: BASO % 0.2 % (0-2.0); EOS % 0.2 % (0-4.5); HEMATOCRIT 41.8 % (35.4-49); HEMOGLOBIN 13.7 GM/dL (11.7-16.9); LYMPH % 9.5 % (8-40); MCH 26.4 pg (25.7-33.7); MCHC 32.7 g/dl (32.0-35.9); MEAN CELL VOLUME 80.9 fl (80-96); MEAN PLT VOLUME 8.9 fl (7.5-11.1); MONO % 11.4 % (3.8-10.2); NEUT % 78.7 % (42.8-82.8); PLATELET COUNT 251 K/MM3 (134-434); RBC 5.17 M/mm3 (4.00-5.60); RDW 13.4 % (11.9-15.9); WHITE BLOOD COUNT 8.5 K/mm3 (4.0-10.0)
[2020-01-08 09:28] LABS: BLOOD UREA NITROGEN 14.6 mg/dL (7-18); CREATININE 0.9 mg/dL (0.55-1.3); POTASSIUM 3.7 mmol/L (3.5-5.1)
[2020-01-08] MEDS: DEXTROSE 5%-NORMAL SALINE 1,000 ML IV SCH ×2 (10:00→18:59)
[2020-01-08] MEDS ORDERED: METHADONE HCL 10 MG TABLET PO ONE (10:00)
[2020-01-08] MEDS ORDERED: TRIMETHOBENZAMIDE HCL 300 MG CAPSULE PO ONE (11:36)
--- NOTE | 2020-01-08 11:37 | PN ---
Physical Exam: SUBJECTIVE: Patient seen and examined at bedside. He endorses some epigastric abdominal pain, nausea, and clear vomitus. He denies subjective fevers, chills, shortness of breath, chest pain, palpitations. OBJECTIVE: Vital Signs Period Temp Pulse Resp BP Sys/Grey Pulse Ox Last 24 Hr 98 F-98.6 F 64-72 13-20 125-147/59-80 94-100 GENERAL: The patient is awake, alert, and fully oriented, in no acute distress. HEAD: Normocephalic, atraumatic. EYES: PERRL, extraocular movements intact, sclera anicteric, conjunctiva clear. ENT: Oropharynx clear, without erythema or exudates. Moist mucous membranes. NECK: Trachea midline, full range of motion. Supple without lymphadenopathy. LUNGS: Breath sounds equal, clear to auscultation bilaterally. No wheezes, no crackles. No accessory muscle use. HEART: Regular rate and rhythm. S1, S2 without murmur, rub or gallop. ABDOMEN: Soft, nondistended. Tender to deep palpation at epigastrum. No rebound tenderness, no guarding. Normoactive bowel sounds x4 quadrants. No hepatosplenomegaly, no masses appreciated. EXTREMITIES: 2+ radial, dorsalis pedis pulses bilaterally. Warm, well-perfused. No lower extremity edema bilaterally. NEUROLOGICAL: Cranial nerves II through XII grossly intact. Normal speech. No gross focal deficits. PSYCH: Normal mood, normal affect upon my encounter. SKIN: Warm, dry. Laboratory Results - last 24 hr 01/07/20 01/07/20 01/07/20 12:02 16:45 22:16 WBC RBC Hgb Hct MCV MCH MCHC RDW Plt Count MPV Absolute Neuts (auto) Neutrophils % Lymphocytes % Monocytes % Eosinophils % Basophils % Nucleated RBC % Sodium Potassium Chloride Carbon Dioxide Anion Gap BUN Creatinine Est GFR (CKD-EPI)AfAm Est GFR (CKD-EPI)NonAf POC Glucometer 229 193 207 Random Glucose Calcium TSH 01/08/20 01/08/20 01/08/20 05:30 05:50 05:50 WBC 8.5 RBC 5.17 Hgb 13.7 Hct 41.8 MCV 80.9 MCH 26.4 MCHC 32.7 RDW 13.4 Plt Count 251 MPV 8.9 Absolute Neuts (auto) 6.7 Neutrophils % 78.7 Lymphocytes % 9.5 D Monocytes % 11.4 H Eosinophils % 0.2 D Basophils % 0.2 Nucleated RBC % 0 Sodium 139 Potassium 3.7 Chloride 100 Carbon Dioxide 26 Anion Gap 13 BUN 14.6 Creatinine 0.9 Est GFR (CKD-EPI)AfAm 108.73 Est GFR (CKD-EPI)NonAf 93.82 POC Glucometer 234 Random Glucose 225 H Calcium 8.0 L TSH 0.36 Active Medications Generic Name Dose Route Start Last Admin Trade Name Freq PRN Reason Stop Dose Admin Dextrose 25 gm 01/07/20 18:42 D50w (Vial) - IVPUSH PRN PRN HYPOGLYCEMIA Diltiazem HCl 120 mg 01/08/20 10:00 01/08/20 09:23 Cardizem Cd - PO 120 mg DAILY ANDRE[facility] Administration Dextrose/Sodium Chloride 1,000 mls @ 50 mls/hr 01/07/20 18:42 01/08/20 10:00 D5-Ns - IV 50 mls/hr ASDIR [facility]RE[facility] Administration Ceftriaxone Sodium 1 gm/ 50 mls @ 200 mls/hr 01/08/20 11:45 Dextrose IVPB DAILY [facility] Protocol Metronidazole 500 mg in 100 mls @ 100 mls/hr 01/08/20 11:45 Flagyl 500mg Premixed Ivpb - IVPB Q8H-IV ANDREWS Insulin Aspart 1 vial 01/07/20 22:00 01/08/20 06:13 Novolog Vial Sliding Scale - SQ 4 units ACHS ANDRE[facility] Administration Protocol Insulin Aspart 4 units 01/08/20 11:00 Novolog SQ TIDAC ANDREWS Insulin Detemir 12 units 01/08/20 08:16 Levemir Vial SQ BID@0700,2200 [facility] Methadone HCl 5 mg 01/09/20 10:00 Dolophine - PO 01/09/20 10:01 ONCE ONE Ondansetron HCl 4 mg 01/07/20 18:42 Zofran Injection IVPUSH Q6H PRN NAUSEA Trimethobenzamide HCl 300 mg 01/08/20 11:36 Tigan - PO 01/08/20 11:37 PRN ONE ASSESSMENT/PLAN: Patient is a 59 year old male with history of heroin use disorder, diabetes mellitus, presented from [facility] with complaint of abdominal pain, vomiting. Admitted for DKA/ HHS. DKA/ HHS -Resolved. Anion gap closed. Acidemia resolved. Blood glucose controlled -Continue [id number] units subq BID -Insulin Aspart 4 units subq TID AC -Insulin sliding scale ACHS -Fingerstick blood glucose ACHS Rhabdomyolysis, Acute kidney injury -Likely secondary to rhabdomyolysis. Resolved -Tolerating oral intake. IV fluids discontinued. Duodenitis -Noted on CT abdomen, pelvis. Patient had significant WBC elevated at time of admission, which has resolved. -Will initiate Ceftriaxone, Metronidazole. New onset Afib -Rate controlled with Diltizaem 120mg PO daily. -Will require holter monitor, prior to initiating anticoagulation. Heroin use disorder -Continue Methadone taper FEN -No IV fluids indicated -Follow BMP -Full liquid diabetic diet Prophylaxis -Heparin 5000units subq TID Disposition -Continue care in medical- surgical floor Anticipate DC within 24 hours if subjective nausea, vomiting improving and patient tolerating diet. Visit type - Emergency Visit Emergency Visit: Yes ED Registration Date: 01/05/20 Care time: The patient presented to the Emergency Department on the above date and was hospitalized for further evaluation of their emergent condition. - New Patient This patient is new to me today: Yes Date on this admission: 01/08/20 - Critical Care Critical Care patient: No - Discharge Referral Referred to [facility] Med P.C.: No ATTENDING PHYSICIAN STATEMENT I saw and evaluated the patient. I reviewed the resident's note and discussed the case with the resident. I agree with the resident's findings and plan as documented. SUBJECTIVE: OBJECTIVE: ASSESSMENT AND PLAN:
[2020-01-08] MEDS ORDERED: INSULIN (NOVOLOG) ASPART 100 UNITS/ML 10ML VIAL ONE (12:08)
[2020-01-08] MEDS: Insulin (LOG) Aspart 100 UNITS/ML VIAL SQ SCH ×2 (12:13→17:11)
[2020-01-08] MEDS ORDERED: PT OWN MED DRAWER 7, Y5N ONE ×3 (12:38→13:33)
--- NOTE | 2020-01-08 12:41 | PN ---
Teaching Attending Note Name of Resident: Marlon Campos ATTENDING PHYSICIAN STATEMENT I saw and evaluated the patient. I reviewed the resident's note and discussed the case with the resident. I agree with the resident's findings and plan as documented. SUBJECTIVE: Seen and examined at bedside. Patient with significant clinical improvement. Gap remains closed, insulin still elevated. Patient complaining of nausea and vomiting and have some abdominal tenderness, consistent with duodenitis found on CAT scan OBJECTIVE Last Vital Signs Temp Pulse Resp BP Pulse Ox 98.4 F 66 18 145/75 100 01/08/20 09:32 01/08/20 09:32 01/08/20 09:32 01/08/20 09:32 01/08/20 09:32 PE: Per resident note Labs/Imaging: reviewed ASSESSMENT/PLAN -year-old male history of type 2 diabetes, heroin abuse and from [facility] due to nonbloody, nonbilious emesis and hyperglycemia to 660. Found to be in H OHS/DKA, rhabdomyolysis #HHS/DKA: Resolved Uptitrate insulin to normalize blood sugar Gap closed Replete lites #Rhabdomyolysis with PHILIP: Resolved Fluids discontinued #Heroin detox Methadone taper: Decrease by 5 mg daily #Nausea and vomiting CAT scan showed duodenitis. Unclear if infectious or inflammatory. White count has resolved, patient still has nausea and vomiting Ceftriaxone, Flagyl Pantoprazole If nausea and vomiting does not resolve may require inpatient endoscopy, otherwise outpatient #New onset atrial fibrillation Currently rate controlled on diltiazem Given that occurred in the setting of DKA would recommend outpatient Holter monitor prior to making decision on anticoagulation
[2020-01-08] MEDS: PANTOPRAZOLE 40 MG TABLET PO SCH (13:35)
--- NOTE | 2020-01-08 14:08 | CON.CARD ---
Consult Consult Specialty:: Cardiology Referred by:: Hospitalist Service Reason for Consultation:: Cardiac evaluation - History of Present Illness Chief Complaint: Paroxysmal AF currently in sinus rhythm History of Present Illness: Patient is a 59 year old male with history of type 2 DM and substance abuse (Heroine) who was admitted from [facility] with hyperglycemia and non bloody emesis. Initially, patient was though to have DKA and was given Insulin drip. He also had elevated Cr thought to be pre-renal azotemia. Subsequently, developed AF with RVR. He was given Cardizem drip and in the ED, converted spontaneously to sinus rhythm. He denies chest pain or palpitations. He is breathing comfortable but complains of extreme tiredness. He denies fever or chills. He complains of nausea. Denies headache or dizziness. - History Source History Provided By: Patient, Medical Record Limitations to Obtaining History: Clinical Condition - Past Medical History Psych: Yes: Other (Substance abuse) Endocrine: Yes: Diabetes Mellitus - Alcohol/Substance Use Hx Alcohol Use: No History of Substance Use: reports: Heroin - Smoking History Smoking history: Never smoked Home Medications - Allergies Allergies/Adverse Reactions: Allergies Allergy/AdvReac Type Severity Reaction Status Date / Time No Known Allergies Allergy Verified 01/04/20 21:29 - Home Medications Home Medications: Ambulatory Orders NK [No Known Home Medication] 01/06/20 Family Medical History Family History: Denies Review of Systems - Review of Systems Constitutional: denies: Chills, Fever Cardiovascular: denies: Chest Pain, Palpitations, Shortness of Breath Respiratory: denies: Cough, Hemoptysis, Orthopnea, PND, SOB, SOB on Exertion Gastrointestinal: reports: Nausea, Vomiting. denies: Abdominal Pain, Melena, Rectal Bleeding Musculoskeletal: denies: Back Pain, Joint Pain Neurological: denies: Dizziness, Headache, Seizure, Syncope Vital Signs: Vital Signs Temperature 97.8 F 01/08/20 14:02 Pulse Rate 71 01/08/20 14:02 Respiratory Rate 01/08/20 14:02 Blood Pressure 149/86 01/08/20 14:02 O2 Sat by Pulse Oximetry (%) 100 01/08/20 09:32 Neck: Yes: Supple Respiratory: Yes: CTA Bilaterally Gastrointestinal: Yes: Normal Bowel Sounds, Soft. No: Tenderness Cardiovascular: Yes: Regular Rate and Rhythm JVD: No PMI: Non-Displaced Heart Sounds: Yes: S1, S2. No: Gallop Edema: No - Other Data Labs, Other Data: CBC, BMP 01/08/20 05:50 01/08/20 05:50 INR, PTT INR 1.07 (0.83-1.09) 01/05/20 04:55 Laboratory Results - last 24 hr 01/08/20 01/08/20 01/08/20 05:30 05:50 05:50 WBC 8.5 RBC 5.17 Hgb 13.7 Hct 41.8 MCV 80.9 MCH 26.4 MCHC 32.7 RDW 13.4 Plt Count 251 MPV 8.9 Absolute Neuts (auto) 6.7 Neutrophils % 78.7 Lymphocytes % 9.5 D Monocytes % 11.4 H Eosinophils % 0.2 D Basophils % 0.2 Nucleated RBC % 0 Sodium 139 Potassium 3.7 Chloride 100 Carbon Dioxide 26 Anion Gap 13 BUN 14.6 Creatinine 0.9 Est GFR (CKD-EPI)AfAm 108.73 Est GFR (CKD-EPI)NonAf 93.82 POC Glucometer 234 Random Glucose 225 H Calcium 8.0 L TSH 0.36 Opiates Screen Methadone Screen Barbiturate Screen Phencyclidine Screen Ur Amphetamines Screen MDMA (Ecstasy) Screen Benzodiazepines Screen Cocaine Screen U Marijuana (THC) Screen 01/08/20 01/08/20 01/08/20 12:06 14:15 17:08 WBC RBC Hgb Hct MCV MCH MCHC RDW Plt Count MPV Absolute Neuts (auto) Neutrophils % Lymphocytes % Monocytes % Eosinophils % Basophils % Nucleated RBC % Sodium Potassium Chloride Carbon Dioxide Anion Gap BUN Creatinine Est GFR (CKD-EPI)AfAm Est GFR (CKD-EPI)NonAf POC Glucometer 212 192 Random Glucose Calcium TSH Opiates Screen Negative Methadone Screen Positive A* Barbiturate Screen Negative Phencyclidine Screen Negative Ur Amphetamines Screen Negative MDMA (Ecstasy) Screen Negative Benzodiazepines Screen Negative Cocaine Screen Negative U Marijuana (THC) Screen Negative Sinus tachycardia, ST-T abnormality lateral leads, PVC Echo: Report Reviewed (Normal LV systolic function, trace to mild MR, mild TR, impaired relaxation) Imaging - Results Chest X-ray: Report Reviewed (Unremarkable) Cat Scan: Report Reviewed (Abd CT small hiatal hernia and large right inguinal hernia, small left inguinal hernia) EKG: Report Reviewed Problem List - Problems (1) PAF (paroxysmal atrial fibrillation) Code(s): I48.0 - PAROXYSMAL ATRIAL FIBRILLATION (2) PHILIP (acute kidney injury) Code(s): N17.9 - ACUTE KIDNEY FAILURE, UNSPECIFIED (3) High anion gap metabolic acidosis Code(s): E87.2 - ACIDOSIS (4) Hyperglycemia Code(s): R73.9 - HYPERGLYCEMIA, UNSPECIFIED (5) Opioid dependence Code(s): F11.20 - OPIOID DEPENDENCE, UNCOMPLICATED (6) DM Diabetes mellitus type 2 Code(s): E11.9 - TYPE 2 DIABETES MELLITUS WITHOUT COMPLICATIONS Assessment/Plan 1. Paroxysmal AF with RVR currently in sinus rhythm [id number] score 1 2. Hyperglycemia with anion gap metabolic acidosis due to HHS and starvation ketosis 3. PHILIP Pre-renal 4. Substance abuse (Heroine) PLAN: 1. In view of above issues, recommend not to use anticoagulation (also with low risk score) 2. Continue Cardizem CD 120 mg QD 3. Continue monitor renal function and electrolytes 4. Empiric antibiotics 5. Echocardiography result reviewed 6. Methadone and continue detox support 7. Zofran for nausea 8. Continue treatment for hyperglycemia Further plans are to follow Zack Chirinos MD
[2020-01-08] MEDS ORDERED: cefTRIAXone SODIUM 1 GM VIAL ONE (14:55)
[2020-01-08] MEDS ORDERED: DEXTROSE 5%-WATER - 50 ML IVPB ONE (14:55)
[2020-01-08] MEDS: CEFTRIAXONE 1 GM in DEXTROSE 5%-WATER - 50 ML IVPB SCH (15:03)
[2020-01-08 15:04] LABS: COCAINE, UR NEGATIVE ng/ml (CUTOFF=300); OPIATES, URI NEGATIVE ng/ml (CUTOFF=300); PHENCYCLIDINE,URINE NEGATIVE ng/ml (CUTOFF=25); URINE AMPHETAMINES NEGATIVE ng/ml (CUTOFF=500); URINE BARBITURATES NEGATIVE ng/ml (CUTOFF=200)
[2020-01-08 15:06] LABS: URINE BENZODIAZEPINES NEGATIVE ng/ml (CUTOFF=200)
[2020-01-08 15:31] LABS: METHADONE, UR POSITIVE ng/ml (CUTOFF=300)
[2020-01-08] MEDS: FAMOTIDINE 20 MG/50 ML IVPB 20 MG/50 ML MG IVPB SCH ×2 (18:17→21:32)
[2020-01-08] MEDS ORDERED: MAGNESIUM SULF 50% (8.12 MEQ/2 ML-1 GM VIAL) IVPB ONE (18:46)
[2020-01-08] MEDS ORDERED: MELATONIN 5 MG TABLETS PO ONE (20:19)
[2020-01-09] MEDS: INSULIN SLIDING SCALE (NOVOLOG) 1 VIAL SQ SCH ×4 (06:32→21:35)
[2020-01-09] MEDS: INSULIN (LEVEMIR) 100 UNITS/ML UNITS SQ SCH ×2 (06:33→21:33)
[2020-01-09] MEDS: Insulin (LOG) Aspart 100 UNITS/ML VIAL SQ SCH ×3 (06:35→17:04)
[2020-01-09 07:34] LABS: HEMATOCRIT 37.8 % (35.4-49); HEMOGLOBIN 12.9 GM/dL (11.7-16.9); MCH 27.7 pg (25.7-33.7); MEAN CELL VOLUME 81.5 fl (80-96); MEAN PLT VOLUME 8.6 fl (7.5-11.1); PLATELET COUNT 215 K/MM3 (134-434); RBC 4.65 M/mm3 (4.00-5.60); RDW 13.3 % (11.9-15.9); WHITE BLOOD COUNT 6.2 K/mm3 (4.0-10.0)
[2020-01-09 07:46] LABS: BLOOD UREA NITROGEN 12.6 mg/dL (7-18); CALCIUM 8.1 mg/dL (8.5-10.1); CREATININE 0.7 mg/dL (0.55-1.3); MAGNESIUM 2.2 mg/dL (1.8-2.4); PHOSPHOROUS 2.6 mg/dL (2.5-4.9); POTASSIUM 3.4 mmol/L (3.5-5.1)
[2020-01-09] MEDS: FAMOTIDINE 20 MG/50 ML IVPB 20 MG/50 ML MG IVPB SCH (09:30)
[2020-01-09] MEDS: PANTOPRAZOLE 40 MG TABLET PO SCH (09:30)
--- NOTE | 2020-01-09 09:31 | PN ---
Progress Note, Physician History of Present Illness: Reports odynophagia, remains in NSR. - Current Medication List Current Medications: Active Medications Dextrose (D50w (Vial) -) 25 gm IVPUSH PRN PRN PRN Reason: HYPOGLYCEMIA Diltiazem HCl (Cardizem Cd -) 120 mg PO DAILY [facility] Last Admin: 01/08/20 09:23 Dose: 120 mg Documented by: Dextrose/Sodium Chloride (D5-Ns -) 1,000 mls @ 50 mls/hr IV ASDIR [facility] Last Admin: 01/08/20 18:59 Dose: Not Given Documented by: Ceftriaxone Sodium 1 gm/ (Dextrose) 50 mls @ 100 mls/hr IVPB DAILY [facility]; Protocol Last Admin: 01/08/20 15:03 Dose: 100 mls/hr Documented by: Metronidazole (Flagyl 500mg Premixed Ivpb -) 500 mg in 100 mls @ 100 mls/hr IVPB Q8H-IV ANDREWS Last Admin: 01/09/20 01:19 Dose: 100 mls/hr Documented by: Famotidine/Sodium Chloride (Pepcid 20 Mg Premixed Ivpb -) 20 mg in 50 mls @ 100 mls/hr IVPB BID [facility] Last Admin: 01/08/20 21:32 Dose: 100 mls/hr Documented by: Insulin Aspart (Novolog Vial Sliding Scale -) 1 vial SQ ACHS [facility]; Protocol Last Admin: 01/09/20 06:32 Dose: 2 units Documented by: Insulin Aspart (Novolog) 4 units SQ TIDAC [facility] Last Admin: 01/09/20 06:35 Dose: 4 units Documented by: Insulin Detemir (Levemir Vial) 12 units SQ BID@0700,2200 [facility] Last Admin: 01/09/20 06:33 Dose: 12 units Documented by: Methadone HCl (Dolophine -) 5 mg PO ONCE ONE Stop: 01/09/20 10:01 Ondansetron HCl (Zofran Injection) 4 mg IVPUSH Q6H PRN PRN Reason: NAUSEA Last Admin: 01/09/20 02:58 Dose: 4 mg Documented by: Pantoprazole Sodium (Protonix -) 40 mg PO DAILY [facility] Last Admin: 01/08/20 13:35 Dose: 40 mg Documented by: - Objective Vital Signs: Vital Signs Temperature 98 F 01/09/20 06:00 Pulse Rate 63 09/23/20 06:00 Respiratory Rate 20 01/09/20 06:00 Blood Pressure 112/60 01/09/20 06:00 O2 Sat by Pulse Oximetry (%) 96 01/09/20 02:00 Constitutional: Yes: No Distress, Calm Neck: Yes: Supple Cardiovascular: Yes: Regular Rate and Rhythm Respiratory: Yes: Regular, CTA Bilaterally Gastrointestinal: Yes: Soft, Hypoactive Bowel Sounds Edema: No Labs: CBC, BMP 01/09/20 06:30 01/09/20 06:30 INR, PTT INR 1.07 (0.83-1.09) 01/05/20 04:55 - ....Imaging EKG: Report Reviewed (Tele: Refused moitoring ECG: NSR @ 70 nonspec T changes) Assessment/Plan Problem List - Problems (1) PAF (paroxysmal atrial fibrillation) Code(s): I48.0 - PAROXYSMAL ATRIAL FIBRILLATION (2) PHILIP (acute kidney injury) Code(s): N17.9 - ACUTE KIDNEY FAILURE, UNSPECIFIED (3) High anion gap metabolic acidosis Code(s): E87.2 - ACIDOSIS (4) Hyperglycemia Code(s): R73.9 - HYPERGLYCEMIA, UNSPECIFIED (5) Opioid dependence Code(s): F11.20 - OPIOID DEPENDENCE, UNCOMPLICATED (6) DM Diabetes mellitus type 2 Code(s): E11.9 - TYPE 2 DIABETES MELLITUS WITHOUT COMPLICATIONS Assessment/Plan 01/07/2020 Normal LV size and fxn EF 70%, grade I DD, mild TN, TR, tr-mild MR 1. Paroxysmal AF with RVR currently in sinus rhythm [id number] score 1 2. Hyperglycemia with anion gap metabolic acidosis due to HHS and starvation ketosis 3. PHILIP Pre-renal resilved 4. Substance abuse (Heroin) 5. Odynophagia consider esophageal candidiasis in context of poorly-controlled DM PLAN: 1. In view of above issues, recommend not to use anticoagulation (also with low risk score) 2. Continue Cardizem CD 120 mg QD 3. Continue monitor renal function and electrolytes 4. Empiric antibiotic course 5. Echocardiography result reviewed 6. Methadone and continue detox support 7. Zofran for nausea, Nystatin swish and swallow 8. Continue treatment for hyperglycemia
--- NOTE | 2020-01-09 09:59 | EKG ---
Test Reason : Blood Pressure : / mmHG Vent. Rate : 070 BPM Atrial Rate : 070 BPM P-R Int : 136 ms QRS Dur : 090 ms QT Int : 502 ms P-R-T Axes : 018 -08 -32 degrees QTc Int : 542 ms NORMAL SINUS RHYTHM NONSPECIFIC T WAVE ABNORMALITY PROLONGED QT ABNORMAL ECG WHEN COMPARED WITH ECG OF 07-JAN-2020 03:45, SINUS RHYTHM HAS REPLACED ATRIAL FIBRILLATION VENT. RATE HAS DECREASED BY 81 BPM T WAVE INVERSION MORE EVIDENT IN INFERIOR LEADS NONSPECIFIC T WAVE ABNORMALITY NOW EVIDENT IN ANTERIOR LEADS NONSPECIFIC T WAVE ABNORMALITY, IMPROVED IN LATERAL LEADS Confirmed by Pascual Roque ([id number]) on 01/09/2020 9:59:33 AM Referred By: Confirmed By:Pascual Roque
[2020-01-09] MEDS ORDERED: METHADONE HCL 5 MG TABLET PO ONE (10:00)
[2020-01-09] MEDS ORDERED: cefTRIAXone SODIUM 1 GM VIAL ONE (10:18)
[2020-01-09] MEDS ORDERED: DEXTROSE 5%-WATER - 50 ML IVPB ONE (10:18)
[2020-01-09] MEDS: CEFTRIAXONE 1 GM in DEXTROSE 5%-WATER - 50 ML IVPB SCH (10:20)
[2020-01-09] MEDS ORDERED: INSULIN (NOVOLOG) ASPART 100 UNITS/ML 10ML VIAL ONE ×2 (10:50→16:39)
--- NOTE | 2020-01-09 13:40 | PN ---
Teaching Attending Note Name of Resident: Derek Singh ATTENDING PHYSICIAN STATEMENT I saw and evaluated the patient. I reviewed the resident's note and discussed the case with the resident. I agree with the resident's findings and plan as documented. SUBJECTIVE: Patient still reporting nausea and vomiting and epigastric burning. Pantoprazol e changed to 40 IV twice daily, GI consulted for symptomatic duodenitis OBJECTIVE Last Vital Signs Temp Pulse Resp BP Pulse Ox 98.1 F 64 20 136/62 97 01/09/20 10:00 01/09/20 10:00 01/09/20 10:00 01/09/20 10:01/09/20 10:00 PE: Per resident note Labs/Imaging: reviewed ASSESSMENT/PLAN -year-old male history of type 2 diabetes, heroin abuse and from [facility] due to nonbloody, nonbilious emesis and hyperglycemia to 660. Found to be in H OHS/DKA, rhabdomyolysis #Nausea and vomiting in setting of duodenitis CAT scan showed duodenitis. Unclear if infectious or inflammatory. White count has resolved, patient still has nausea and vomiting Ceftriaxone, Flagyl Pantoprazole switch to IV BID -GI consulted If nausea and vomiting does not resolve may require inpatient endoscopy, otherwise outpatient #HHS/DKA: Resolved Uptitrate insulin to normalize blood sugar Gap closed Replete lites #Rhabdomyolysis with PHILIP: Resolved Fluids discontinued #Heroin detox Methadone taper: Decrease by 5 mg daily #New onset atrial fibrillation Currently rate controlled on diltiazem Per cardiology pt does not need AC given low risk score and high risk lifestyle
[2020-01-09] MEDS: DEXTROSE 5%-NORMAL SALINE 1,000 ML IV SCH (14:39)
--- NOTE | 2020-01-09 15:33 | PN ---
Progress Note (short form) - Note Progress Note: GI CONSULT DICTATED - PPI BID - CARAFATE TID - DIET TOLERATED - PLAN FOR EGD LATER THIS WEEK
[2020-01-09] MEDS: SUCRALFATE 1 GM/10 ML UNIT DOSE CUPS PO SCH ×2 (18:14→21:33)
[2020-01-09] MEDS ORDERED: MELATONIN 5 MG TABLETS PO ONE (21:25)
[2020-01-09] MEDS: PANTOPRAZOLE SODIUM 40 MG VIAL IVPUSH SCH (21:33)
--- NOTE | 2020-01-09 22:00 | PN ---
Physical Exam: SUBJECTIVE: Patient seen and examined at bedside. No acute events overnight. Endorsing nausea and epigastric burning. OBJECTIVE: Vital Signs Period Temp Pulse Resp BP Sys/Grey Pulse Ox Last 24 Hr 97.5 F-98.4 F 60-69 20-20 112-145/60-85 96-97 GENERAL: NAD HEAD: Normal with no signs of trauma. EYES:EOMI Sclera Clear LUNGS: CTAB. HEART: RRR S1S2 ABDOMEN: Soft NDNT. EXTREMITIES: 2+ pulses, warm, well-perfused, no edema. NEUROLOGICAL: Cranial nerves II through XII grossly intact. PSYCH: Normal mood, normal affect. SKIN: Warm, dry, normal turgor, no rashes or lesions noted Laboratory Results - last 24 hr 01/09/20 01/09/20 01/09/20 02:42 06:27 06:30 WBC 6.2 RBC 4.65 Hgb 12.9 Hct 37.8 MCV 81.5 MCH 27.7 MCHC 34.0 RDW 13.3 Plt Count 215 MPV 8.6 Sodium Potassium Chloride Carbon Dioxide Anion Gap BUN Creatinine Est GFR (CKD-EPI)AfAm Est GFR (CKD-EPI)NonAf POC Glucometer 156 187 Random Glucose Calcium Phosphorus Magnesium 01/09/20 01/09/20 01/09/20 06:30 11:01 17:00 WBC RBC Hgb Hct MCV MCH MCHC RDW Plt Count MPV Sodium 139 Potassium 3.4 L Chloride 100 Carbon Dioxide 32 Anion Gap 7 L BUN 12.6 Creatinine 0.7 Est GFR (CKD-EPI)AfAm 120.56 Est GFR (CKD-EPI)NonAf 104.02 POC Glucometer 219 180 Random Glucose 207 H Calcium 8.1 L Phosphorus 2.6 Magnesium 2.2 01/09/20 21:10 WBC RBC Hgb Hct MCV MCH MCHC RDW Plt Count MPV Sodium Potassium Chloride Carbon Dioxide Anion Gap BUN Creatinine Est GFR (CKD-EPI)AfAm Est GFR (CKD-EPI)NonAf POC Glucometer 180 Random Glucose Calcium Phosphorus Magnesium Active Medications Generic Name Dose Route Start Last Admin Trade Name Freq PRN Reason Stop Dose Admin Dextrose 25 gm 01/07/20 18:42 D50w (Vial) - IVPUSH PRN PRN HYPOGLYCEMIA Diltiazem HCl 120 mg 01/08/20 10:00 01/09/20 09:29 Cardizem Cd - PO 120 mg DAILY [facility] Administration Dextrose/Sodium Chloride 1,000 mls @ 50 mls/hr 01/07/20 18:42 01/09/20 14:39 D5-Ns - IV 50 mls/hr ASDIR [facility] Administration Ceftriaxone Sodium 1 gm/ 50 mls @ 100 mls/hr 01/08/20 12:00 01/09/20 10:20 Dextrose IVPB 100 mls/hr DAILY [facility] Administration Protocol Metronidazole 500 mg in 100 mls @ 100 mls/hr 01/08/20 12:45 01/09/20 18:14 Flagyl 500mg Premixed Ivpb - IVPB 100 mls/hr Q8H-IV [facility]RE[facility] Administration Insulin Aspart 1 vial 01/07/20 22:00 01/09/20 21:35 Novolog Vial Sliding Scale - SQ 2 units ACHS [facility] Administration Protocol Insulin Aspart 4 units 01/08/20 11:00 01/09/20 17:04 Novolog SQ Not Given TIDAC ANDREWS Insulin Detemir 13 units 01/09/20 13:38 01/09/20 21:33 Levemir Vial SQ Not Given BID@0700,2200 [facility] Ondansetron HCl 4 mg 01/07/20 18:42 01/09/20 02:58 Zofran Injection IVPUSH 4 mg Q6H PRN Administration NAUSEA Pantoprazole Sodium 40 mg 01/09/20 22:00 01/09/20 21:33 Protonix Iv IVPUSH 40 mg BID AND[facility] Administration Sucralfate 1 gm 01/09/20 18:00 01/09/20 21:33 Carafate Oral Suspension - PO 1 gm QID [facility] Administration ASSESSMENT/PLAN: Patient is a 59 year old male with history of heroin use disorder, diabetes mellitus, presented from [facility] with complaint of abdominal pain, vomiting. Admitted for DKA/ HHS. #Epigastric burning sensation likely 2/2 Duodenitis - Ceftriaxone, Flagyl -GI evaluated patient today. Will schedule for upper endoscopy. -Protonix switched to 40 IVBID. Carafate. DKA/ HHS -Resolved. Anion gap closed. Acidemia resolved. Blood glucose controlled -Continue [id number] units subq BID -Insulin Aspart 4 units subq TID AC -Insulin sliding scale ACHS -Fingerstick blood glucose ACHS New onset Afib -Rate controlled with Diltizaem 120mg PO daily. -Will require holter monitor, prior to initiating anticoagulation. Heroin use disorder -Completed Taper FEN -No IV fluids indicated -Follow BMP -Full liquid diabetic diet Prophylaxis -Heparin 5000units subq TID Disposition -Tele Visit type - Emergency Visit Emergency Visit: Yes ED Registration Date: 01/05/20 Care time: The patient presented to the Emergency Department on the above date and was hospitalized for further evaluation of their emergent condition. - New Patient This patient is new to me today: No - Critical Care Critical Care patient: No - Discharge Referral Referred to [facility] Med P.C.: No ATTENDING PHYSICIAN STATEMENT I saw and evaluated the patient. I reviewed the resident's note and discussed the case with the resident. I agree with the resident's findings and plan as documented. SUBJECTIVE: OBJECTIVE: ASSESSMENT AND PLAN:
[2020-01-10] MEDS: INSULIN SLIDING SCALE (NOVOLOG) 1 VIAL SQ SCH ×4 (06:21→21:35)
[2020-01-10] MEDS: INSULIN (LEVEMIR) 100 UNITS/ML UNITS SQ SCH ×2 (06:21→21:34)
[2020-01-10] MEDS: Insulin (LOG) Aspart 100 UNITS/ML VIAL SQ SCH ×3 (06:21→17:23)
[2020-01-10 06:40] LABS: HEMATOCRIT 36.5 % (35.4-49); HEMOGLOBIN 11.9 GM/dL (11.7-16.9); MCH 26.5 pg (25.7-33.7); MCHC 32.7 g/dl (32.0-35.9); MEAN CELL VOLUME 81.2 fl (80-96); MEAN PLT VOLUME 8.4 fl (7.5-11.1); PLATELET COUNT 223 K/MM3 (134-434); RBC 4.49 M/mm3 (4.00-5.60); RDW 13.4 % (11.9-15.9); WHITE BLOOD COUNT 5.2 K/mm3 (4.0-10.0)
--- NOTE | 2020-01-10 06:40 | CONS ---
DATE OF CONSULTATION: DATE OF DICTATION: 01/09/2020 GASTROENTEROLOGY CONSULTATION HISTORY OF PRESENT ILLNESS: Patient is a 59-year-old male with a past medical history of type 2 diabetes, substance abuse (heroin), who was in a detoxification program and admitted to the hospital with hypoglycemia and episodes of nausea and vomiting. He states he had multiple episodes of nausea and vomiting while he was at the facility and since then has developed this epigastric burning and particularly pain when he swallows with the associated burning. He states he did not vomit today. He denies any hematemesis, melena or hematochezia. Of note, when he was admitted he was thought to have DKA and started on insulin drip at the time. He has never had a colonoscopy or an upper endoscopy in the past. PAST MEDICAL AND SURGICAL HISTORY: As listed in the HPI with the addition of PHILIP and paroxysmal atrial fibrillation with RVR, currently not on anticoagulation secondary to his low BRADLEY risk score. ALLERGIES: No known drug allergies. SOCIAL HISTORY: Heroin use. Denies additional alcohol or smoking. FAMILY HISTORY: No history of GI or gynecological malignancy. PHYSICAL EXAMINATION:Vital Signs: Temperature 98, pulse 69, blood pressure 130/79, pulse oximetry 97% on room air, respiratory rate 12. General: No acute distress. Pleasant man. HEENT: Anicteric sclerae. Cardiovascular: S1-S2, regular rate and rhythm. Lungs: Are bilaterally clear to auscultation. Abdomen: Is soft and nontender. Extremities: Without edema. LABORATORIES: White blood cell count on admission was 22, presently is 6.2, hemoglobin 12, hematocrit 37, MCV 81, platelet count 215. INR 1. Sodium 139, potassium 3.4, BUN 12, creatinine 0.7, glucose 207. Liver tests: AST 27, ALT 27. CK on the was 1192, on the was 415. Urine significant for ketones and some blood. Toxicology screen was positive for methadone, and COVID-19 is negative. He had an abdomen and pelvic CT scan without contrast which revealed a small hiatal hernia with thickened distal esophagus, inflammatory changes in the duodenum suspicious for duodenitis, large right inguinal hernia and a smaller left inguinal hernia, no abscess or other pathology. IMPRESSION: Epigastric burning and dyspeptic symptoms with nausea and vomiting, most likely in the setting of his diabetic ketoacidosis and hypoglycemia. Imaging findings with evidence of a hiatal hernia which is likely contributing to his symptoms as well as a thickened esophagus most likely representing esophagitis; however, other etiology cannot be excluded at this time such as a malignant process. Also with questionable duodenitis and inflammation in the duodenum. RECOMMENDATION: Continue him on his Protonix. Should be on 40 mg IV b.i.d. Will add Carafate elixir for symptom relief. Diet as tolerated. He would benefit from a diagnostic upper endoscopy. This can be done later in the week as an inpatient or as an outpatient if necessary. Will follow up cardiology recommendations also regarding any risk stratification. This patient will be followed by GI service. DO SHANNAN COOMBS/[id number] MTDLeon
[2020-01-10 07:08] LABS: BLOOD UREA NITROGEN 10.2 mg/dL (7-18); CALCIUM 7.5 mg/dL (8.5-10.1); CREATININE 0.6 mg/dL (0.55-1.3); MAGNESIUM 1.9 mg/dL (1.8-2.4); PHOSPHOROUS 2.6 mg/dL (2.5-4.9); POTASSIUM 3.5 mmol/L (3.5-5.1)
--- NOTE | 2020-01-10 08:23 | PN ---
Progress Note (short form) - Note Progress Note: EGD 01/10 Full liquids Change to Protonix 40mg PO BID
[2020-01-10] MEDS ORDERED: cefTRIAXone SODIUM 1 GM VIAL ONE (09:50)
[2020-01-10] MEDS ORDERED: DEXTROSE 5%-WATER - 50 ML IVPB ONE (09:51)
[2020-01-10] MEDS: CEFTRIAXONE 1 GM in DEXTROSE 5%-WATER - 50 ML IVPB SCH (09:58)
[2020-01-10] MEDS: SUCRALFATE 1 GM/10 ML UNIT DOSE CUPS PO SCH ×4 (09:58→21:07)
[2020-01-10] MEDS: PANTOPRAZOLE 40 MG TABLET PO SCH ×2 (09:59→21:07)
[2020-01-10] MEDS: PANTOPRAZOLE SODIUM 40 MG VIAL IVPUSH SCH (09:59)
--- NOTE | 2020-01-10 10:15 | PN ---
Progress Note, Physician History of Present Illness: Reports odynophagia, nausea and emesis resolved, remains in NSR. - Current Medication List Current Medications: Active Medications Dextrose (D50w (Vial) -) 25 gm IVPUSH PRN PRN PRN Reason: HYPOGLYCEMIA Diltiazem HCl (Cardizem Cd -) 120 mg PO DAILY [facility] Last Admin: 01/10/20 09:59 Dose: 120 mg Documented by: Dextrose/Sodium Chloride (D5-Ns -) 1,000 mls @ 50 mls/hr IV ASDIR ANDREWS Last Admin: 01/09/20 14:39 Dose: 50 mls/hr Documented by: Ceftriaxone Sodium 1 gm/ (Dextrose) 50 mls @ 100 mls/hr IVPB DAILY [facility]; Protocol Last Admin: 01/10/20 09:58 Dose: 100 mls/hr Documented by: Metronidazole (Flagyl 500mg Premixed Ivpb -) 500 mg in 100 mls @ 100 mls/hr IVPB Q8H-IV ANDREWS Last Admin: 01/10/20 09:59 Dose: 100 mls/hr Documented by: Insulin Aspart (Novolog Vial Sliding Scale -) 1 vial SQ ACHS [facility]; Protocol Last Admin: 01/10/20 06:21 Dose: Not Given Documented by: Insulin Aspart (Novolog) 4 units SQ TIDAC [facility] Last Admin: 01/10/20 06:21 Dose: Not Given Documented by: Insulin Detemir (Levemir Vial) 13 units SQ BID@0700,2200 [facility] Last Admin: 01/10/20 06:21 Dose: Not Given Documented by: Ondansetron HCl (Zofran Injection) 4 mg IVPUSH Q6H PRN PRN Reason: NAUSEA Last Admin: 01/09/20 02:58 Dose: 4 mg Documented by: Pantoprazole Sodium (Protonix Iv) 40 mg IVPUSH BID [facility] Last Admin: 01/10/20 09:59 Dose: 40 mg Documented by: Pantoprazole Sodium (Protonix -) 40 mg PO BID [facility] Last Admin: 01/10/20 09:59 Dose: Not Given Documented by: Sucralfate (Carafate Oral Suspension -) 1 gm PO QID [facility] Last Admin: 01/10/20 09:58 Dose: 1 gm Documented by: - Objective Vital Signs: Vital Signs Temperature 97.8 F 01/10/20 06:00 Pulse Rate 54 L 01/10/20 06:00 Respiratory Rate 20 01/10/20 06:00 Blood Pressure 117/60 01/10/20 06:00 O2 Sat by Pulse Oximetry (%) 95 01/10/20 06:00 Constitutional: Yes: No Distress, Calm Neck: Yes: Supple Cardiovascular: Yes: Regular Rate and Rhythm Respiratory: Yes: Regular, CTA Bilaterally Gastrointestinal: Yes: Soft, Hypoactive Bowel Sounds Edema: No Labs: CBC, BMP 01/10/20 05:26 01/10/20 05:26 INR, PTT INR 1.07 (0.83-1.09) 01/05/20 04:55 - ....Imaging EKG: Report Reviewed (Tele: NSR) Assessment/Plan Problem List - Problems (1) PAF (paroxysmal atrial fibrillation) Code(s): I48.0 - PAROXYSMAL ATRIAL FIBRILLATION (2) PHILIP (acute kidney injury) Code(s): N17.9 - ACUTE KIDNEY FAILURE, UNSPECIFIED (3) High anion gap metabolic acidosis Code(s): E87.2 - ACIDOSIS (4) Hyperglycemia Code(s): R73.9 - HYPERGLYCEMIA, UNSPECIFIED (5) Opioid dependence Code(s): F11.20 - OPIOID DEPENDENCE, UNCOMPLICATED (6) DM Diabetes mellitus type 2 Code(s): E11.9 - TYPE 2 DIABETES MELLITUS WITHOUT COMPLICATIONS Assessment/Plan 01/07/2020 Normal LV size and fxn EF 70%, grade I DD, mild [place], TR, tr-mild MR 1. Paroxysmal AF with RVR currently in sinus rhythm [id number] score 1 2. Hyperglycemia with anion gap metabolic acidosis due to HHS and starvation ketosis 3. PHILIP Pre-renal resilved 4. Substance abuse (Heroin) 5. Odynophagia consider esophageal candidiasis, esophagitis, duodenitis in context of poorly-controlled DM PLAN: 1. In view of above issues, recommend not to use anticoagulation (also with low risk score) 2. Continue Cardizem CD 120 mg QD 3. Continue monitor renal function and electrolytes 4. Empiric antibiotic course 5. Methadone and continue detox support 6. Zofran for nausea, Nystatin swish and swallow 7. Continue treatment for hyperglycemia 8. Plan for EGD 01/10, may proceed from CV-standpoint given rate-control and absence of symptoms of acute coronary syndrome, decompensated CHF, or malignant arrhythmia, continue on protonix
[2020-01-10] MEDS ORDERED: INSULIN (NOVOLOG) ASPART 100 UNITS/ML 10ML VIAL ONE (11:33)
--- NOTE | 2020-01-10 13:25 | PN ---
Teaching Attending Note Name of Resident: Derek Singh ATTENDING PHYSICIAN STATEMENT I saw and evaluated the patient. I reviewed the resident's note and discussed the case with the resident. I agree with the resident's findings and plan as documented. SUBJECTIVE: Seen and examined at bedside. Hemodynamically stable. Nausea and pain still pr esent but improved. Protonix switched to 40 p.o. twice daily and patient will be prepped for endoscopy Tuesday morning OBJECTIVE Last Vital Signs Temp Pulse Resp BP Pulse Ox 98.1 F 64 20 136/62 97 01/09/20 10:00 01/09/20 10:01/09/20 10:01/09/20 10:01/09/20 10:00 PE: Per resident note Labs/Imaging: reviewed ASSESSMENT/PLAN -year-old male history of type 2 diabetes, heroin abuse and from [facility] due to nonbloody, nonbilious emesis and hyperglycemia to 660. Found to be in H OHS/DKA, rhabdomyolysis #Nausea and vomiting in setting of duodenitis CAT scan showed duodenitis. Unclear if infectious or inflammatory. White count has resolved, patient still has nausea and vomiting Ceftriaxone, Flagyl Pantoprazole switch to 40 PO BID -GI consulted: endoscopy tuesday #HHS/DKA: Resolved Uptitrate insulin to normalize blood sugar Gap closed Replete lites #Rhabdomyolysis with PHILIP: Resolved Fluids discontinued #Heroin detox Methadone taper: Decrease by 5 mg daily #New onset atrial fibrillation Currently rate controlled on diltiazem Per cardiology pt does not need AC given low risk score and high risk lifestyle
--- NOTE | 2020-01-10 15:18 | PN ---
Physical Exam: SUBJECTIVE: Patient seen and examined at bedside. No acute events overnight. Scheduled for colonoscopy tomorrow morning. OBJECTIVE: Vital Signs Period Temp Pulse Resp BP Sys/Grey Pulse Ox Last 24 Hr 97.5 F-98.9 F 54-68 20-20 117-152/60-85 95-96 GENERAL: NAD HEAD: Atraumatic/Normocephalic EYES:EOMI Sclera Clear LUNGS: CTAB. HEART: RRR S1S2 ABDOMEN: Soft NDNT. EXTREMITIES: 2+ pulses, warm, well-perfused, no edema. NEUROLOGICAL: Cranial nerves II through XII grossly intact. PSYCH: Normal mood, normal affect. SKIN: Warm, dry, normal turgor, no rashes or lesions noted Laboratory Results - last 24 hr 01/09/20 01/09/20 01/10/20 17:00 21:10 05:21 WBC RBC Hgb Hct MCV MCH MCHC RDW Plt Count MPV Sodium Potassium Chloride Carbon Dioxide Anion Gap BUN Creatinine Est GFR (CKD-EPI)AfAm Est GFR (CKD-EPI)NonAf POC Glucometer 180 180 224 Random Glucose Calcium Phosphorus Magnesium 01/10/20 01/10/20 01/10/20 05:26 05:26 11:18 WBC 5.2 RBC 4.49 Hgb 11.9 Hct 36.5 MCV 81.2 MCH 26.5 MCHC 32.7 RDW 13.4 Plt Count 223 MPV 8.4 Sodium 139 Potassium 3.5 Chloride 100 Carbon Dioxide 30 Anion Gap 9 BUN 10.2 Creatinine 0.6 Est GFR (CKD-EPI)AfAm 128.45 Est GFR (CKD-EPI)NonAf 110.83 POC Glucometer 326 Random Glucose 218 H Calcium 7.5 L Phosphorus 2.6 Magnesium 1.9 Active Medications Generic Name Dose Route Start Last Admin Trade Name Freq PRN Reason Stop Dose Admin Dextrose 25 gm 01/07/20 18:42 D50w (Vial) - IVPUSH PRN PRN HYPOGLYCEMIA Diltiazem HCl 120 mg 01/08/20 10:00 01/10/20 09:59 Cardizem Cd - PO 120 mg DAILY ANDREWS Administration Dextrose/Sodium Chloride 1,000 mls @ 50 mls/hr 01/07/20 18:42 01/09/20 14:39 D5-Ns - IV 50 mls/hr ASDIR ANDREWS Administration Ceftriaxone Sodium 1 gm/ 50 mls @ 100 mls/hr 01/08/20 12:00 01/10/20 09:58 Dextrose IVPB 100 mls/hr DAILY [facility] BEDS AT [facility] Administration Protocol Metronidazole 500 mg in 100 mls @ 100 mls/hr 01/08/20 12:45 01/10/20 09:59 Flagyl 500mg Premixed Ivpb - IVPB 100 mls/hr Q8H-IV ANDREWS Administration Insulin Aspart 1 vial 01/07/20 22:00 01/10/20 11:33 Novolog Vial Sliding Scale - SQ 8 units ACHS COUNTS INCLUDE 234 BEDS AT THE [facility] Administration Protocol Insulin Aspart 4 units 01/08/20 11:00 01/10/20 11:34 Novolog SQ 4 units TIDAC [facility] Administration Insulin Detemir 13 units 01/09/20 13:38 01/10/20 06:21 Levemir Vial SQ Not Given BID@0700,2200 COUNTS [facility]CLUDE 234 BEDS AT THE [facility] Ondansetron HCl 4 mg 01/07/20 18:42 01/09/20 02:58 Zofran Injection IVPUSH 4 mg Q6H PRN Administration NAUSEA Pantoprazole Sodium 40 mg 01/10/20 10:00 01/10/20 09:59 Protonix - PO Not Given BID COUNTS INCLUDE 234 BEDS AT THE [facility] Sucralfate 1 gm 01/09/20 18:00 01/10/20 13:04 Carafate Oral Suspension - PO 1 gm QID COUNTS INCLUDE 234 BEDS AT THE [facility] Administration ASSESSMENT/PLAN: Patient is a 59 year old male with history of heroin use disorder, diabetes mellitus, presented from [facility] with complaint of abdominal pain, vomiting. Admitted for DKA/ HHS. #Epigastric burning sensation likely 2/2 Duodenitis - Ceftriaxone, Flagyl -Scheduled for Colonoscopy tomorrow A.M. NPO After midnight. -Protonix 40 BID. Carafate. DKA/ HHS -Resolved. Anion gap closed. Acidemia resolved. Blood glucose controlled -Continue Levemir 13 units subq BID -Insulin Aspart 4 units subq TID AC -Insulin sliding scale ACHS -Fingerstick blood glucose ACHS New onset Afib -Rate controlled with Diltizaem 120mg PO daily. -Will require holter monitor, prior to initiating anticoagulation. Heroin use disorder -Completed Taper FEN -No IV fluids indicated -Follow BMP -NPO after Midnight Prophylaxis -Heparin 5000units subq TID Disposition -Tele Visit type - Emergency Visit Emergency Visit: Yes ED Registration Date: 01/05/20 Care time: The patient presented to the Emergency Department on the above date and was hospitalized for further evaluation of their emergent condition. - New Patient This patient is new to me today: No - Critical Care Critical Care patient: No ATTENDING PHYSICIAN STATEMENT I saw and evaluated the patient. I reviewed the resident's note and discussed the case with the resident. I agree with the resident's findings and plan as documented. SUBJECTIVE: OBJECTIVE: ASSESSMENT AND PLAN:
[2020-01-10] MEDS ORDERED: MELATONIN 5 MG TABLETS PO ONE (19:46)
[2020-01-10] MEDS: DEXTROSE 5%-NORMAL SALINE 1,000 ML IV SCH (21:08)
[2020-01-11] MEDS: INSULIN (LEVEMIR) 100 UNITS/ML UNITS SQ SCH ×2 (06:26→21:40)
[2020-01-11] MEDS: Insulin (LOG) Aspart 100 UNITS/ML VIAL SQ SCH ×3 (06:26→17:21)
[2020-01-11] MEDS: INSULIN SLIDING SCALE (NOVOLOG) 1 VIAL SQ SCH ×4 (06:27→21:41)
[2020-01-11 06:45] LABS: HEMATOCRIT 35.7 % (35.4-49); HEMOGLOBIN 11.8 GM/dL (11.7-16.9); MCH 26.5 pg (25.7-33.7); MEAN CELL VOLUME 80.5 fl (80-96); MEAN PLT VOLUME 8.1 fl (7.5-11.1); PLATELET COUNT 275 K/MM3 (134-434); RBC 4.43 M/mm3 (4.00-5.60); RDW 12.8 % (11.9-15.9); WHITE BLOOD COUNT 5.5 K/mm3 (4.0-10.0)
[2020-01-11 07:15] LABS: CREATININE 0.6 mg/dL (0.55-1.3); MAGNESIUM 2.1 mg/dL (1.8-2.4); PHOSPHOROUS 2.8 mg/dL (2.5-4.9); POTASSIUM 3.4 mmol/L (3.5-5.1)
--- NOTE | 2020-01-11 08:09 | PN ---
Progress Note, Physician History of Present Illness: Reports odynophagia, nausea and emesis resolved, remains in NSR. Awaiting EGD. - Current Medication List Current Medications: Active Medications Dextrose (D50w (Vial) -) 25 gm IVPUSH PRN PRN PRN Reason: HYPOGLYCEMIA Diltiazem HCl (Cardizem Cd -) 120 mg PO DAILY [facility] Last Admin: 01/10/20 09:59 Dose: 120 mg Documented by: Dextrose/Sodium Chloride (D5-Ns -) 1,000 mls @ 50 mls/hr IV ASDIR ANDREWS Last Admin: 01/10/20 21:08 Dose: Not Given Documented by: Ceftriaxone Sodium 1 gm/ (Dextrose) 50 mls @ 100 mls/hr IVPB DAILY [facility]; Protocol Last Admin: 01/10/20 09:58 Dose: 100 mls/hr Documented by: Metronidazole (Flagyl 500mg Premixed Ivpb -) 500 mg in 100 mls @ 100 mls/hr IVPB Q8H-IV [facility]RE[facility] Last Admin: 01/11/20 01:08 Dose: 100 mls/hr Documented by: Insulin Aspart (Novolog Vial Sliding Scale -) 1 vial SQ ACHS [facility]; Protocol Last Admin: 01/11/20 06:27 Dose: 6 units Documented by: Insulin Aspart (Novolog) 4 units SQ TIDAC [facility] Last Admin: 01/11/20 06:26 Dose: Not Given Documented by: Insulin Detemir (Levemir Vial) 13 units SQ BID@0700,2200 [facility] Last Admin: 01/11/20 06:26 Dose: Not Given Documented by: Ondansetron HCl (Zofran Injection) 4 mg IVPUSH Q6H PRN PRN Reason: NAUSEA Last Admin: 01/09/20 02:58 Dose: 4 mg Documented by: Pantoprazole Sodium (Protonix -) 40 mg PO BID [facility] Last Admin: 01/10/20 21:07 Dose: 40 mg Documented by: Sucralfate (Carafate Oral Suspension -) 1 gm PO QID [facility] Last Admin: 01/10/20 21:07 Dose: 1 gm Documented by: - Objective Vital Signs: Vital Signs Temperature 98.4 F 01/11/20 06:00 Pulse Rate 59 L 01/11/20 06:00 Respiratory Rate 18 01/11/20 06:00 Blood Pressure 117/68 01/11/20 06:00 O2 Sat by Pulse Oximetry (%) 93 L 01/10/20 20:47 Constitutional: Yes: No Distress, Calm Neck: Yes: Supple Cardiovascular: Yes: Regular Rate and Rhythm Respiratory: Yes: Regular, CTA Bilaterally Gastrointestinal: Yes: Soft, Hypoactive Bowel Sounds Edema: No Labs: CBC, BMP 01/11/20 05:45 01/11/20 05:45 INR, PTT INR 1.07 (0.83-1.09) 01/05/20 04:55 - ....Imaging EKG: Report Reviewed (Tele: NSR) Assessment/Plan Problem List - Problems (1) PAF (paroxysmal atrial fibrillation) Code(s): I48.0 - PAROXYSMAL ATRIAL FIBRILLATION (2) PHILIP (acute kidney injury) Code(s): N17.9 - ACUTE KIDNEY FAILURE, UNSPECIFIED (3) High anion gap metabolic acidosis Code(s): E87.2 - ACIDOSIS (4) Hyperglycemia Code(s): R73.9 - HYPERGLYCEMIA, UNSPECIFIED (5) Opioid dependence Code(s): F11.20 - OPIOID DEPENDENCE, UNCOMPLICATED (6) DM Diabetes mellitus type 2 Code(s): E11.9 - TYPE 2 DIABETES MELLITUS WITHOUT COMPLICATIONS Assessment/Plan 01/07/2020 Normal LV size and fxn EF 70%, grade I DD, mild HI, TR, tr-mild MR 1. Paroxysmal AF with RVR currently in sinus rhythm [id number] score 1 2. Hyperglycemia with anion gap metabolic acidosis due to HHS and starvation ketosis 3. PHILIP Pre-renal resilved 4. Substance abuse (Heroin) 5. Odynophagia consider esophageal candidiasis, esophagitis, duodenitis in context of poorly-controlled DM PLAN: 1. In view of above issues, recommend not to use anticoagulation (also with low risk score) 2. Continue Cardizem CD 120 mg QD 3. Continue monitor renal function and electrolytes and replete K 4. Empiric antibiotic course 5. Methadone and continue detox support 6. Zofran for nausea, Nystatin swish and swallow 7. Continue treatment for hyperglycemia 8. Plan for EGD today, may proceed from CV-standpoint given rate-control and absence of symptoms of acute coronary syndrome, decompensated CHF, or malignant arrhythmia, continue on protonix
[2020-01-11] MEDS ORDERED: DEXTROSE 5%-WATER - 50 ML IVPB ONE (08:54)
[2020-01-11] MEDS ORDERED: cefTRIAXone SODIUM 1 GM VIAL ONE (08:54)
[2020-01-11] MEDS: SUCRALFATE 1 GM/10 ML UNIT DOSE CUPS PO SCH ×4 (10:03→21:39)
[2020-01-11] MEDS: PANTOPRAZOLE 40 MG TABLET PO SCH ×2 (10:03→21:39)
[2020-01-11] MEDS: CEFTRIAXONE 1 GM in DEXTROSE 5%-WATER - 50 ML IVPB SCH (10:03)
[2020-01-11] MEDS: KCL 10 MEQ IVPB 10 MEQ/100 ML INFUS.BAG IVPB SCH ×2 (12:19→13:20)
--- NOTE | 2020-01-11 13:14 | PN ---
Teaching Attending Note Name of Resident: Derek Singh ATTENDING PHYSICIAN STATEMENT I saw and evaluated the patient. I reviewed the resident's note and discussed the case with the resident. I agree with the resident's findings and plan as documented. SUBJECTIVE: Seen and examined at bedside. Still has some nausea and. Pending colonoscopy and GI recs OBJECTIVE Last Vital Signs Temp Pulse Resp BP Pulse Ox 98 F 55 L 18 134/75 94 L 01/11/20 10:01/11/20 10:01/11/20 10:01/11/20 10:01/11/20 10:00 PE: Per resident note Labs/Imaging: reviewed ASSESSMENT/PLAN -year-old male history of type 2 diabetes, heroin abuse and from [facility] due to nonbloody, nonbilious emesis and hyperglycemia to 660. Found to be in H OHS/DKA, rhabdomyolysis #Nausea and vomiting in setting of duodenitis CAT scan showed duodenitis. Unclear if infectious or inflammatory. White count has resolved, patient still has nausea and vomiting Ceftriaxone, Flagyl Pantoprazole switch to 40 PO BID -GI consulted: endoscopy tuesday #HHS/DKA: Resolved Uptitrate insulin to normalize blood sugar Gap closed Replete lites #Rhabdomyolysis with PHILIP: Resolved Fluids discontinued #Heroin detox Methadone taper: Decrease by 5 mg daily #New onset atrial fibrillation Currently rate controlled on diltiazem Per cardiology pt does not need AC given low risk score and high risk lifestyle
--- NOTE | 2020-01-11 16:32 | PN ---
Progress Note (short form) - Note Progress Note: EGD complete. Report left in procedural section of the physical chart and will be scanned into [facility]
--- NOTE | 2020-01-11 17:05 | PN ---
Progress Note (short form) - Note Progress Note: Patient lives in [place]. States that his PMD is Dr. Davis working out of [address] [place] [address] ([employer]). Patient prefers follow-up GI care closer to where is lives in [place]. follow-up with his PMD will need to be arranged as well as need for continued GI follow-up as outlined in the procedure report. Discussed with patient the findings and concern for possible modi's esophagus. Explained that this is a precancerous condition that will need pe riodic monitoring and close follow-up, including repeat EGD in 2 months.
--- NOTE | 2020-01-11 18:56 | PN ---
Physical Exam: SUBJECTIVE: Patient seen and examined at bedside. No acute events overnight. S/p EGD. OBJECTIVE: Vital Signs Period Temp Pulse Resp BP Sys/Grey Pulse Ox Last 24 Hr 97.4 F-98.8 F 51-76 16-20 117-146/66-79 93-100 GENERAL: No acute distress HEAD: Atraumatic/Normocephalic EYES:EOMI Sclera Clear LUNGS: CTAB. HEART: RRR S1S2 ABDOMEN: Not distended not tender. BS+ EXTREMITIES: 2+ pulses, warm, well-perfused, no edema. IVs located bilateral feet. NEUROLOGICAL: Cranial nerves II through XII grossly intact. PSYCH: Normal mood, normal affect. SKIN: Warm, dry, normal turgor, no rashes or lesions noted Laboratory Results - last 24 hr 01/10/20 01/11/20 01/11/20 21:00 05:45 05:45 WBC 5.5 RBC 4.43 Hgb 11.8 Hct 35.7 MCV 80.5 MCH 26.5 MCHC 33.0 RDW 12.8 Plt Count 275 D MPV 8.1 Sodium 136 Potassium 3.4 L Chloride 98 Carbon Dioxide 30 Anion Gap 9 BUN 9.0 Creatinine 0.6 Est GFR (CKD-EPI)AfAm 128.45 Est GFR (CKD-EPI)NonAf 110.83 POC Glucometer 154 Random Glucose 244 H Calcium 8.0 L Phosphorus 2.8 Magnesium 2.1 01/11/20 01/11/20 01/11/20 06:22 12:10 17:06 WBC RBC Hgb Hct MCV MCH MCHC RDW Plt Count MPV Sodium Potassium Chloride Carbon Dioxide Anion Gap BUN Creatinine Est GFR (CKD-EPI)AfAm Est GFR (CKD-EPI)NonAf POC Glucometer 256 229 162 Random Glucose Calcium Phosphorus Magnesium Active Medications Generic Name Dose Route Start Last Admin Trade Name Freq PRN Reason Stop Dose Admin Dextrose 25 gm 01/07/20 18:42 D50w (Vial) - IVPUSH PRN PRN HYPOGLYCEMIA Diltiazem HCl 120 mg 01/08/20 10:00 01/11/20 10:04 Cardizem Cd - PO 120 mg DAILY [facility] Administration Dextrose/Sodium Chloride 1,000 mls @ 50 mls/hr 01/07/20 18:42 01/10/20 21:08 D5-Ns - IV Not Given ASDIR ANDREWS Ceftriaxone Sodium 1 gm/ 50 mls @ 100 mls/hr 01/08/20 12:00 01/11/20 10:03 Dextrose IVPB 100 mls/hr DAILY [facility] Administration Protocol Metronidazole 500 mg in 100 mls @ 100 mls/hr 01/08/20 12:45 01/11/20 17:22 Flagyl 500mg Premixed Ivpb - IVPB 100 mls/hr Q8H-IV [facility] Administration Insulin Aspart 1 vial 01/07/20 22:00 01/11/20 17:21 Novolog Vial Sliding Scale - SQ 2 units ACHS [facility] Administration Protocol Insulin Aspart 4 units 01/08/20 11:00 01/11/20 17:21 Novolog SQ 4 units TIDAC [facility] Administration Insulin Detemir 13 units 01/09/20 13:38 01/11/20 06:26 Levemir Vial SQ Not Given BID@0700,2200 [facility] Ondansetron HCl 4 mg 01/07/20 18:42 01/09/20 02:58 Zofran Injection IVPUSH 4 mg Q6H PRN Administration NAUSEA Pantoprazole Sodium 40 mg 01/10/20 10:00 01/11/20 10:03 Protonix - PO 40 mg BID [facility] Administration Sucralfate 1 gm 01/09/20 18:00 01/11/20 17:22 Carafate Oral Suspension - PO 1 gm QID [facility] Administration ASSESSMENT/PLAN: Patient is a 59 year old male with history of heroin use disorder, diabetes mellitus, presented from [facility] with complaint of abdominal pain, vomiting. Admitted for DKA/ HHS. #Epigastric burning sensation likely 2/2 Duodenitis - Ceftriaxone, Flagyl -Endoscopy today---> esophagitis, gastritis, esophageal ulcer, poss barrets. Repeat EGD in 2 months as this is a precancercous lesion. -Protonix 40 BID. Carafate. DKA/ HHS -Resolved. Anion gap closed. Acidemia resolved. Blood glucose controlled -Continue Levemir 13 units subq BID -Insulin Aspart 4 units subq TID AC -Insulin sliding scale ACHS -Fingerstick blood glucose ACHS New onset Afib -Rate controlled with Diltizaem 120mg PO daily. -Will require holter monitor, prior to initiating anticoagulation. Heroin use disorder -Completed Taper FEN -No IV fluids indicated -Follow BMP -NPO after Midnight Prophylaxis -Heparin 5000units subq TID Disposition -Tele Visit type - Emergency Visit Emergency Visit: Yes ED Registration Date: 01/05/20 Care time: The patient presented to the Emergency Department on the above date and was hospitalized for further evaluation of their emergent condition. - New Patient This patient is new to me today: No - Critical Care Critical Care patient: No - Discharge Referral Referred to [facility] Med [facility] No ATTENDING PHYSICIAN STATEMENT I saw and evaluated the patient. I reviewed the resident's note and discussed the case with the resident. I agree with the resident's findings and plan as documented. SUBJECTIVE: OBJECTIVE: ASSESSMENT AND PLAN:
[2020-01-11] MEDS ORDERED: MELATONIN 5 MG TABLETS PO ONE (21:09)
[2020-01-11] MEDS: DEXTROSE 5%-NORMAL SALINE 1,000 ML IV SCH (21:47)
[2020-01-12] MEDS: INSULIN (LEVEMIR) 100 UNITS/ML UNITS SQ SCH ×2 (06:23→21:43)
[2020-01-12] MEDS: INSULIN SLIDING SCALE (NOVOLOG) 1 VIAL SQ SCH ×4 (06:24→21:37)
[2020-01-12] MEDS: Insulin (LOG) Aspart 100 UNITS/ML VIAL SQ SCH ×3 (06:25→17:01)
[2020-01-12 07:39] LABS: ALBUMIN 2.3 g/dl (3.4-5.0); BILIRUBIN,TOTAL 0.3 mg/dL (0.2-1); BLOOD UREA NITROGEN 8.5 mg/dL (7-18); CALCIUM 8.2 mg/dL (8.5-10.1); CREATININE 0.7 mg/dL (0.55-1.3); MAGNESIUM 1.9 mg/dL (1.8-2.4); PHOSPHOROUS 3.2 mg/dL (2.5-4.9); POTASSIUM 3.2 mmol/L (3.5-5.1)
[2020-01-12 07:43] LABS: TOT PROT 5.4 g/dl (6.4-8.2)
[2020-01-12 07:58] LABS: HEMATOCRIT 36.5 % (35.4-49); HEMOGLOBIN 11.9 GM/dL (11.7-16.9); MCH 26.4 pg (25.7-33.7); MCHC 32.7 g/dl (32.0-35.9); MEAN CELL VOLUME 80.7 fl (80-96); PLATELET COUNT 320 K/MM3 (134-434); RBC 4.52 M/mm3 (4.00-5.60); RDW 13.3 % (11.9-15.9); WHITE BLOOD COUNT 6.2 K/mm3 (4.0-10.0)
[2020-01-12] MEDS: PANTOPRAZOLE 40 MG TABLET PO SCH ×2 (09:18→21:43)
[2020-01-12] MEDS: SUCRALFATE 1 GM/10 ML UNIT DOSE CUPS PO SCH ×4 (09:18→21:42)
[2020-01-12] MEDS ORDERED: cefTRIAXone SODIUM 1 GM VIAL ONE (09:27)
[2020-01-12] MEDS ORDERED: DEXTROSE 5%-WATER - 50 ML IVPB ONE (09:28)
[2020-01-12] MEDS: CEFTRIAXONE 1 GM in DEXTROSE 5%-WATER - 50 ML IVPB SCH (09:29)
--- NOTE | 2020-01-12 11:18 | PN ---
Progress Note, Physician - Current Medication List Current Medications: Active Medications Dextrose (D50w (Vial) -) 25 gm IVPUSH PRN PRN PRN Reason: HYPOGLYCEMIA Diltiazem HCl (Cardizem Cd -) 120 mg PO DAILY [facility] Last Admin: 01/12/20 09:18 Dose: 120 mg Documented by: Dextrose/Sodium Chloride (D5-Ns -) 1,000 mls @ 50 mls/hr IV ASDIR [facility] Last Admin: 01/11/20 21:47 Dose: 50 mls/hr Documented by: Ceftriaxone Sodium 1 gm/ (Dextrose) 50 mls @ 100 mls/hr IVPB DAILY [facility]; Protocol Last Admin: 01/12/20 09:29 Dose: 100 mls/hr Documented by: Metronidazole (Flagyl 500mg Premixed Ivpb -) 500 mg in 100 mls @ 100 mls/hr IVPB Q8H-IV [facility] Last Admin: 01/12/20 09:18 Dose: 100 mls/hr Documented by: Insulin Aspart (Novolog Vial Sliding Scale -) 1 vial SQ ACHS [facility]; Protocol Last Admin: 01/12/20 06:24 Dose: 2 units Documented by: Insulin Aspart (Novolog) 4 units SQ TIDAC [facility] Last Admin: 01/12/20 06:25 Dose: 4 units Documented by: Insulin Detemir (Levemir Vial) 13 units SQ BID@0700,2200 [facility] Last Admin: 01/12/20 06:23 Dose: 13 units Documented by: Ondansetron HCl (Zofran Injection) 4 mg IVPUSH Q6H PRN PRN Reason: NAUSEA Last Admin: 01/09/20 02:58 Dose: 4 mg Documented by: Pantoprazole Sodium (Protonix -) 40 mg PO BID [facility] Last Admin: 01/12/20 09:18 Dose: 40 mg Documented by: Sucralfate (Carafate Oral Suspension -) 1 gm PO QID [facility] Last Admin: 01/12/20 09:18 Dose: 1 gm Documented by: - Objective Vital Signs: Vital Signs Temperature 99.1 F 01/12/20 10:00 Pulse Rate 63 01/12/20 10:00 Respiratory Rate 20 01/12/20 10:00 Blood Pressure 124/100 01/12/20 10:00 O2 Sat by Pulse Oximetry (%) 96 01/11/20 21:35 Eyes: Yes: WNL, Conjunctiva Clear, EOM Intact HENT: Yes: WNL, Atraumatic, Normocephalic Neck: Yes: WNL, Supple, Trachea Midline Cardiovascular: Yes: WNL, Regular Rate and Rhythm Respiratory: Yes: WNL, Regular, CTA Bilaterally Gastrointestinal: Yes: WNL, Normal Bowel Sounds Genitourinary: Yes: WNL Musculoskeletal: Yes: WNL Extremities: Yes: WNL Edema: No Integumentary: Yes: WNL Neurological: Yes: WNL, Alert, Oriented ...Motor Strength: WNL Psychiatric: Yes: WNL Labs: CBC, BMP 01/12/20 06:10 01/12/20 06:10 INR, PTT INR 1.07 (0.83-1.09) 01/05/20 04:55 Assessment/Plan 01/07/2020 Normal LV size and fxn EF 70%, grade I DD, mild CO, TR, tr-mild MR 1. Paroxysmal AF with RVR currently in sinus rhythm [id number] score 1 2. Hyperglycemia with anion gap metabolic acidosis due to HHS and starvation k etosis 3. PHILIP Pre-renal resilved 4. Substance abuse (Heroin) 5. Odynophagia consider esophageal candidiasis, esophagitis, duodenitis in context of poorly-controlled DM PLAN: 1. In view of above issues, recommend not to use anticoagulation (also with low risk score) 2. Continue Cardizem CD 120 mg QD 3. Continue monitor renal function and electrolytes and replete K 4. Empiric antibiotic course 5. Methadone and continue detox support 6. Zofran for nausea, Nystatin swish and swallow 7. Continue treatment for hyperglycemia 8. Plan for EGD today, may proceed from CV-standpoint given rate-control and absence of symptoms of acute coronary syndrome, decompensated CHF, or malignant arrhythmia, continue on protonix
[2020-01-12] MEDS ORDERED: POTASSIUM CHLORIDE TABS 20 MEQ TABLET.ER (FP) PO ONE (17:11)
--- NOTE | 2020-01-12 17:31 | PN ---
Progress Note (short form) - Note Progress Note: S: No acute events overnight. No fevers. EGD yesterday. Patient tolerating diet currently. He reports not taking care of himself prior due to his substance abuse which is likely the etiology of his DKA. Reports some dyspepsia and odynophagia (improving) Vital Signs Temperature 98.3 F 01/12/20 14:00 Pulse Rate 60 01/12/20 14:00 Respiratory Rate 18 01/12/20 14:00 Blood Pressure 121/83 01/12/20 14:00 O2 Sat by Pulse Oximetry (%) 96 01/11/20 21:35 PE: Gen: NAD, awake, alert, oriented watching TV HEENT: NC/At, EOMI, MINAL, sclera anicteric, MMM, no conjunctival pallor or scleral icterus, no posterior oropharynx swelling Neck: No JVD Lung: CTA b/l without wheezes or rales CARD: bradycardia with regular rhythm, sinus bradycardia noted on telemetry, no murmurs appreciated ABD: Soft, NT/Nd, + BS EXT: No edema CBC, BMP 01/12/20 06:10 01/12/20 06:10 Hepatic Panel Total Bilirubin 0.3 mg/dL (0.2-1) 01/12/20 06:10 AST 36 U/L (15-37) 01/12/20 06:10 ALT 30 U/L (13-61) 01/12/20 06:10 Alkaline Phosphatase 84 U/L (45-117) 01/12/20 06:10 Albumin 2.3 g/dl (3.4-5.0) L 01/12/20 06:10 Microbiology 01/06/20 20:24 Blood - Peripheral Venous Blood Culture - Final NO GROWTH AFTER 5 DAYS INCUBATION 01/05/20 09:42 Urine - Urine Clean Catch Urine Culture - Final NO GROWTH OBTAINED Active Medications Dextrose (D50w (Vial) -) 25 gm IVPUSH PRN PRN PRN Reason: HYPOGLYCEMIA Diltiazem HCl (Cardizem Cd -) 120 mg PO DAILY [facility] Last Admin: 01/12/20 09:18 Dose: 120 mg Documented by: Insulin Aspart (Novolog Vial Sliding Scale -) 1 vial SQ ACHS [facility]; Protocol Last Admin: 01/12/20 17:00 Dose: 2 units Documented by: Insulin Aspart (Novolog) 4 units SQ TIDAC [facility] Last Admin: 01/12/20 17:01 Dose: 4 units Documented by: Insulin Detemir (Levemir Vial) 13 units SQ BID@0700,2200 [facility] Last Admin: 01/12/20 06:23 Dose: 13 units Documented by: Ondansetron HCl (Zofran Injection) 4 mg IVPUSH Q6H PRN PRN Reason: NAUSEA Last Admin: 01/09/20 02:58 Dose: 4 mg Documented by: Pantoprazole Sodium (Protonix -) 40 mg PO BID [facility] Last Admin: 01/12/20 09:18 Dose: 40 mg Documented by: Sucralfate (Carafate Oral Suspension -) 1 gm PO QID [facility] Last Admin: 01/12/20 13:51 Dose: 1 gm Documented by: Assessment and Plan: Taylor's Esophagus Diabetic Ketoacidosis (resolved) Type 2 DM New onset Atrial fibrillation Polysubstance Abuse --Protonix 40mg BID x 1 week followed by daily --GI recs noted --Sucralfate QID for dyspepsia --Levemir 13U BID, however D5-NS running at bedside while tolerating diet --discontinue fluids and monitor BGM; can give Dextrose if hypoglycemia occurs --Continue diabetic diet --ISS and BGM --Atrial fibrillation noted on ECG in chart --Patient receiving Cardizem ER 120mg qdaily and noted to be sinus bradycardia to 40-50's with satisfactory MAP --Decreasing dose to Cardizem ER 90mg qdaily and monitoring overnight --Patient is not a candidate for AC due to events of this hospitalization as per cardiology --Pt completed detoxification process while inpatient and can follow with outpatient services to maintain sobriety Dispo: D/C planning DO Wilner Hoffman
[2020-01-12] MEDS ORDERED: MELATONIN 5 MG TABLETS PO PRN (17:37)
[2020-01-12] MEDS: dilTIAZem HCL 30 MG TABLET PO SCH (21:43)
[2020-01-13] MEDS: dilTIAZem HCL 30 MG TABLET PO SCH ×3 (06:36→21:55)
[2020-01-13] MEDS: INSULIN (LEVEMIR) 100 UNITS/ML UNITS SQ SCH ×2 (07:08→21:54)
[2020-01-13] MEDS: Insulin (LOG) Aspart 100 UNITS/ML VIAL SQ SCH ×3 (07:09→17:24)
[2020-01-13] MEDS: INSULIN SLIDING SCALE (NOVOLOG) 1 VIAL SQ SCH ×4 (07:09→21:53)
[2020-01-13 07:19] LABS: BLOOD UREA NITROGEN 7.1 mg/dL (7-18); CALCIUM 7.9 mg/dL (8.5-10.1); CREATININE 0.7 mg/dL (0.55-1.3); MAGNESIUM 1.9 mg/dL (1.8-2.4); POTASSIUM 3.2 mmol/L (3.5-5.1)
--- NOTE | 2020-01-13 09:57 | PN ---
Progress Note, Physician - Current Medication List Current Medications: Active Medications Dextrose (D50w (Vial) -) 25 gm IVPUSH PRN PRN PRN Reason: HYPOGLYCEMIA Diltiazem HCl (Cardizem -) 30 mg PO TID [facility] Last Admin: 01/13/20 06:36 Dose: Not Given Documented by: Insulin Aspart (Novolog Vial Sliding Scale -) 1 vial SQ ACHS [facility]; Protocol Last Admin: 01/13/20 07:09 Dose: 2 units Documented by: Insulin Aspart (Novolog) 4 units SQ TIDAC [facility] Last Admin: 01/13/20 07:09 Dose: 4 units Documented by: Insulin Detemir (Levemir Vial) 13 units SQ BID@0700,2200 [facility] Last Admin: 01/13/20 07:08 Dose: 13 units Documented by: Melatonin (Melatonin) 5 mg PO HS PRN PRN Reason: INSOMNIA Last Admin: 01/12/20 21:44 Dose: 5 mg Documented by: Pantoprazole Sodium (Protonix -) 40 mg PO BID [facility] Last Admin: 01/12/20 21:43 Dose: 40 mg Documented by: Sucralfate (Carafate Oral Suspension -) 1 gm PO QID [facility] Last Admin: 01/12/20 21:42 Dose: 1 gm Documented by: - Objective Vital Signs: Vital Signs Temperature 98.7 F 01/12/20 22:00 Pulse Rate 48 L 01/13/20 06:00 Respiratory Rate 18 01/13/20 06:00 Blood Pressure 107/51 L 01/13/20 06:00 O2 Sat by Pulse Oximetry (%) 98 01/13/20 09:00 Eyes: Yes: WNL, Conjunctiva Clear, EOM Intact HENT: Yes: WNL, Atraumatic, Normocephalic Neck: Yes: WNL, Supple, Trachea Midline Cardiovascular: Yes: WNL, Regular Rate and Rhythm Respiratory: Yes: WNL, Regular, CTA Bilaterally Gastrointestinal: Yes: WNL, Normal Bowel Sounds Genitourinary: Yes: WNL Musculoskeletal: Yes: WNL Extremities: Yes: WNL Edema: No Integumentary: Yes: WNL Neurological: Yes: WNL, Alert, Oriented ...Motor Strength: WNL Psychiatric: Yes: WNL Labs: CBC, BMP 01/12/20 06:10 01/13/20 05:56 INR, PTT INR 1.07 (0.83-1.09) 01/05/20 04:55 Assessment/Plan 01/07/2020 Normal LV size and fxn EF 70%, grade I DD, mild [place], TR, tr-mild MR 1. Paroxysmal AF with RVR currently in sinus rhythm [id number] score 1 2. Hyperglycemia with anion gap metabolic acidosis due to HHS and starvation ketosis 3. PHILIP Pre-renal resilved 4. Substance abuse (Heroin) 5. Odynophagia consider esophageal candidiasis, esophagitis, duodenitis in context of poorly-controlled DM PLAN: 1. In view of above issues, recommend not to use anticoagulation (also with low risk score) 2. Continue Cardizem CD 120 mg QD 3. Continue monitor renal function and electrolytes and replete K 4. Empiric antibiotic course 5. Methadone and continue detox support 6. Zofran for nausea, Nystatin swish and swallow 7. Continue treatment for hyperglycemia
[2020-01-13] MEDS: KCL 10 MEQ IVPB 10 MEQ/100 ML INFUS.BAG IVPB SCH ×2 (10:18→11:24)
[2020-01-13] MEDS: PANTOPRAZOLE 40 MG TABLET PO SCH ×2 (10:18→21:54)
[2020-01-13] MEDS: SUCRALFATE 1 GM/10 ML UNIT DOSE CUPS PO SCH ×4 (10:18→21:54)
[2020-01-13] MEDS: POTASSIUM CHLORIDE TABS 20 MEQ TABLET.ER (FP) PO ONE ×2 (10:21→10:25)
[2020-01-13] MEDS ORDERED: POTASSIUM CHLORIDE ORAL LIQUID 20 MEQ/15 ML PO ONE (12:40)
--- NOTE | 2020-01-13 16:45 | PN ---
Progress Note (short form) - Note Progress Note: S: No acute events overnight. No fevers. Remains sinus bradycardic. Will follow with Dr. Davis in [place] working out of facility. Vital Signs Temperature 98.3 F 01/12/20 14:00 Pulse Rate 60 01/12/20 14:00 Respiratory Rate 18 01/12/20 14:00 Blood Pressure 121/83 01/12/20 14:00 O2 Sat by Pulse Oximetry (%) 96 01/11/20 21:35 PE: Gen: NAD, awake, alert, oriented watching TV HEENT: NC/At, MINAL, sclera anicteric, MMM, no conjunctival pallor or scleral icterus Neck: No JVD Lung: CTA b/l without wheezes or rales CARD: bradycardia with regular rhythm, sinus bradycardia noted on telemetry, no murmurs appreciated ABD: Soft, NT/Nd, + BS EXT: No edema CBC, BMP 01/12/20 06:10 01/13/20 05:56 Microbiology 01/06/20 20:24 Blood - Peripheral Venous Blood Culture - Final NO GROWTH AFTER 5 DAYS INCUBATION 01/05/20 09:42 Urine - Urine Clean Catch Urine Culture - Final NO GROWTH OBTAINED Active Medications Dextrose (D50w (Vial) -) 25 gm IVPUSH PRN PRN PRN Reason: HYPOGLYCEMIA Diltiazem HCl (Cardizem -) 30 mg PO TID [facility] Last Admin: 01/13/20 13:40 Dose: Not Given Documented by: Insulin Aspart (Novolog Vial Sliding Scale -) 1 vial SQ ACHS [facility]; Protocol Last Admin: 01/13/20 11:53 Dose: 2 units Documented by: Insulin Aspart (Novolog) 4 units SQ TIDAC [facility] Last Admin: 01/13/20 11:54 Dose: 4 units Documented by: Insulin Detemir (Levemir Vial) 13 units SQ BID@0700,2200 [facility] Last Admin: 01/13/20 07:08 Dose: 13 units Documented by: Melatonin (Melatonin) 5 mg PO HS PRN PRN Reason: INSOMNIA Last Admin: 01/12/20 21:44 Dose: 5 mg Documented by: Pantoprazole Sodium (Protonix -) 40 mg PO BID [facility] Last Admin: 01/13/20 10:18 Dose: 40 mg Documented by: Sucralfate (Carafate Oral Suspension -) 1 gm PO QID [facility] Last Admin: 01/13/20 13:39 Dose: 1 gm Documented by: Assessment and Plan: Taylor's Esophagus Diabetic Ketoacidosis (resolved) Type 2 DM New onset Atrial fibrillation Polysubstance Abuse --Protonix 40mg BID x 1 week followed by daily --GI recs noted --Sucralfate QID for dyspepsia --Levemir 13U BID --Diabetic teaching to be performed today with next dose and then patient can self-administer tomorrow AM for efficacy of teaching --Continue diabetic diet --ISS and BGM --Atrial fibrillation noted on ECG in chart --continue sinus bradycardia; monitor while on Cardizem 30mg TID --Patient is not a candidate for AC due to events of this hospitalization as per cardiology --Pt completed detoxification process while inpatient and can follow with out patient services to maintain sobriety Dispo: D/C planning; likely tomorrow with f/u with Dr. Davis. Francisco Keller DO - IM
[2020-01-14] MEDS: dilTIAZem HCL 30 MG TABLET PO SCH (06:29)
[2020-01-14] MEDS: INSULIN SLIDING SCALE (NOVOLOG) 1 VIAL SQ SCH ×2 (06:52→11:22)
[2020-01-14] MEDS: INSULIN (LEVEMIR) 100 UNITS/ML UNITS SQ SCH (06:59)
[2020-01-14] MEDS: Insulin (LOG) Aspart 100 UNITS/ML VIAL SQ SCH ×2 (07:01→11:22)
[2020-01-14 07:23] LABS: BLOOD UREA NITROGEN 5.2 mg/dL (7-18); CREATININE 0.7 mg/dL (0.55-1.3); POTASSIUM 3.1 mmol/L (3.5-5.1)
[2020-01-14] MEDS ORDERED: INSULIN (NOVOLOG) ASPART 100 UNITS/ML 10ML VIAL ONE ×2 (07:54→11:32)
[2020-01-14] MEDS ORDERED: POTASSIUM CHLORIDE TABS 20 MEQ TABLET.ER (FP) PO ONE ×2 (08:15→09:00)
[2020-01-14 09:30] VITALS: BP 110/68; PULSE 58; TEMP 98
--- NOTE | 2020-01-14 09:47 | PN ---
Progress Note, Physician History of Present Illness: EGD shows Taylor's esophagus, informed to f/u with local GI for repeat EGD. Remains in NSR. - Current Medication List Current Medications: Active Medications Dextrose (D50w (Vial) -) 25 gm IVPUSH PRN PRN PRN Reason: HYPOGLYCEMIA Insulin Aspart (Novolog Vial Sliding Scale -) 1 vial SQ ACHS [facility]; Protocol Last Admin: 01/14/20 06:52 Dose: Not Given Documented by: Insulin Aspart (Novolog) 4 units SQ TIDAC [facility] Last Admin: 01/14/20 07:01 Dose: 4 units Documented by: Insulin Detemir (Levemir Vial) 13 units SQ BID@0700,2200 [facility] Last Admin: 01/14/20 06:59 Dose: 13 units Documented by: Melatonin (Melatonin) 5 mg PO HS PRN PRN Reason: INSOMNIA Last Admin: 01/12/20 21:44 Dose: 5 mg Documented by: Pantoprazole Sodium (Protonix -) 40 mg PO BID [facility] Last Admin: 01/13/20 21:54 Dose: 40 mg Documented by: Potassium Chloride (K-Dur -) 40 meq PO DAILY [facility] Sucralfate (Carafate Oral Suspension -) 1 gm PO QID [facility] Last Admin: 01/13/20 21:54 Dose: 1 gm Documented by: - Objective Vital Signs: Vital Signs Temperature 98 F 01/14/20 09:27 Pulse Rate 58 L 01/14/20 09:27 Respiratory Rate 20 01/14/20 09:27 Blood Pressure 110/68 01/14/20 09:27 O2 Sat by Pulse Oximetry (%) 96 01/14/20 09:27 Constitutional: Yes: No Distress, Calm Neck: Yes: Supple Cardiovascular: Yes: Regular Rate and Rhythm Respiratory: Yes: Regular, CTA Bilaterally Gastrointestinal: Yes: Soft, Hypoactive Bowel Sounds Edema: No Labs: CBC, BMP 01/12/20 06:10 01/14/20 05:55 INR, PTT INR 1.07 (0.83-1.09) 01/05/20 04:55 Assessment/Plan Problem List - Problems (1) PAF (paroxysmal atrial fibrillation) Code(s): I48.0 - PAROXYSMAL ATRIAL FIBRILLATION (2) PHILIP (acute kidney injury) Code(s): N17.9 - ACUTE KIDNEY FAILURE, UNSPECIFIED (3) High anion gap metabolic acidosis Code(s): E87.2 - ACIDOSIS (4) Hyperglycemia Code(s): R73.9 - HYPERGLYCEMIA, UNSPECIFIED (5) Opioid dependence Code(s): F11.20 - OPIOID DEPENDENCE, UNCOMPLICATED (6) DM Diabetes mellitus type 2 Code(s): E11.9 - TYPE 2 DIABETES MELLITUS WITHOUT COMPLICATIONS Assessment/Plan 01/07/2020 Normal LV size and fxn EF 70%, grade I DD, mild [place], TR, tr-mild MR 1. Paroxysmal AF with RVR currently in sinus rhythm [id number] score 1 2. Hyperglycemia with anion gap metabolic acidosis due to HHS and starvation ketosis resolved 3. PHILIP Pre-renal resolved 4. Substance abuse (Heroin) 5. Taylor's esophagus PLAN: 1. In view of above issues, recommend not to use anticoagulation (also with low risk score) 2. Resume Cardizem CD 120 mg QD as hemodynamics tolerate 3. Continue monitor renal function and electrolytes and replete K 4. Complete empiric antibiotic course 5. Methadone and continue detox support 6. Protonix and sucralfate per GI 7. Continue treatment for hyperglycemia
[2020-01-14] MEDS: SUCRALFATE 1 GM/10 ML UNIT DOSE CUPS PO SCH (09:58)
[2020-01-14] MEDS: PANTOPRAZOLE 40 MG TABLET PO SCH (09:59)
[2020-01-14] MEDS ORDERED: POTASSIUM CHLORIDE TABS 20 MEQ TABLET.ER (FP) PO SCH (10:00)
[2020-01-14] MEDS ORDERED: POTASSIUM CHLORIDE ORAL LIQUID 20 MEQ/15 ML PO ONE ×2 (10:38→11:00)
--- NOTE | 2020-01-14 12:45 | PN ---
Teaching Attending Note Name of Resident: Derek Singh ATTENDING PHYSICIAN STATEMENT I saw and evaluated the patient. I reviewed the resident's note and discussed the case with the resident. I agree with the resident's findings and plan as documented. SUBJECTIVE: Seen and examined at bedside. Still has some nausea and. Pending colonoscopy a nd GI recs OBJECTIVE Last Vital Signs Temp Pulse Resp BP Pulse Ox 98 F 55 L 18 134/75 94 L 01/11/20 10:01/11/20 10:01/11/20 10:01/11/20 10:01/11/20 10:00 PE: Per resident note Labs/Imaging: reviewed ASSESSMENT/PLAN -year-old male history of type 2 diabetes, heroin abuse and from [facility] due to nonbloody, nonbilious emesis and hyperglycemia to 660. Found to be in H OHS/DKA, rhabdomyolysis #Nausea and vomiting in setting of duodenitis CAT scan showed duodenitis. Unclear if infectious or inflammatory. White count has resolved, patient still has nausea and vomiting Ceftriaxone, Flagyl Pantoprazole switch to 40 PO BID -GI consulted: endoscopy tuesday #HHS/DKA: Resolved Uptitrate insulin to normalize blood sugar Gap closed Replete lites #Rhabdomyolysis with PHILIP: Resolved Fluids discontinued #Heroin detox Methadone taper: Decrease by 5 mg daily #New onset atrial fibrillation Currently rate controlled on diltiazem Per cardiology pt does not need AC given low risk score and high risk lifestyle
--- NOTE | 2020-01-14 12:58 | PN ---
Teaching Attending Note Name of Resident: Derek Singh ATTENDING PHYSICIAN STATEMENT I saw and evaluated the patient. I reviewed the resident's note and discussed the case with the resident. I agree with the resident's findings and plan as documented. SUBJECTIVE: Reports feeling much better. Patient has been in sinus bradycardia for the last 2 days and diltiazem has been held. Patient is medically cleared for discharge. He will not be sent home on medications for his atrial fibrillation but will follow-up with his doctor as an outpatient for further management. He will be sent home on insulin, statin, and BORA inhibitor for management of his diabetes. OBJECTIVE Last Vital Signs Temp Pulse Resp BP Pulse Ox 98 F 58 L 20 110/68 96 01/14/20 09:01/14/20 09:01/14/20 09:01/14/20 09:01/14/20 09:27 PE: Per resident note Labs/Imaging: reviewed ASSESSMENT/PLAN 59-year-old male history of type 2 diabetes, heroin abuse and from [facility] due to nonbloody, nonbilious emesis and hyperglycemia to 660. Found to be in H OHS/DKA, rhabdomyolysis. Course was complicated by new onset atrial fibrillation and sinus bradycardia, as well as PHILIP with rhabdomyolysis, and nausea and vomiting with concern for duodenitis on CAT scan which ended up being Taylor's esophagus on endoscopy. Patient will be sent home on insulin, statin, and an BORA inhibitor. As A. fib occurred during DKA and he has a low bleeding risk and patient was in sinus bradycardia while off medication he will not be discharged on rate control or anticoagulation at this time. He should follow-up with a physical therapy assistant instructor as an outpatient for Holter monitor to assess the need for further anticoagulation or rate control. He should have a repeat endoscopy in 2 months to follow-up his Taylor's esophagus
--- NOTE | 2020-01-14 13:43 | DS ---
Physical Exam: SUBJECTIVE: Patient seen and examined at bedside. No acute events overnight. OBJECTIVE: Vital Signs Period Temp Pulse Resp BP Sys/Grey Pulse Ox Last 24 Hr 98 F-99.4 F 48-65 20-20 108-154/59-68 95-98 PHYSICAL EXAM GENERAL: NAD HEAD: Atraumatic/Normocephalic EYES:EOMI Sclera Clear LUNGS: CTAB. HEART: RRR S1S2 ABDOMEN: Not distended not tender. BS+ EXTREMITIES: 2+ pulses, warm, well-perfused, no edema. NEUROLOGICAL: Cranial nerves II through XII grossly intact. PSYCH: Normal mood, normal affect. SKIN: Warm, dry, normal turgor, no rashes or lesions noted LABS Laboratory Results - last 24 hr 01/13/20 01/13/20 01/14/20 17:00 21:38 05:38 Sodium Potassium Chloride Carbon Dioxide Anion Gap BUN Creatinine Est GFR (CKD-EPI)AfAm Est GFR (CKD-EPI)NonAf POC Glucometer 173 197 109 Random Glucose Calcium 01/14/20 01/14/20 05:55 11:21 Sodium 141 Potassium 3.1 L Chloride 104 Carbon Dioxide 30 Anion Gap 6 L BUN 5.2 L Creatinine 0.7 Est GFR (CKD-EPI)AfAm 120.56 Est GFR (CKD-EPI)NonAf 104.02 POC Glucometer 150 Random Glucose 106 Calcium 8.0 L HOSPITAL COURSE: Date of Admission:01/05/20 Patient is a 59 year old male with history of heroin use disorder, diabetes mellitus, who presented from [facility] with complaint of abdominal pain and vomiting. Admitted for DKA/ HHS. On admission, Glucose 666, UA: 3+ glucose, 3+ ketones, Beta hydroxybutyrate 64.8, bicarb 22, Anion gap 19 (Lactic acid 2.4), calculated osmolality of 311. UA was notable for 3+ glucose, 3+ ketones. Patient was given IV insulin and started on gtt. Also given 2L of IV fluid. Patient also was noted to have an PHILIP likely due to rhabdo with a CK of 1192 (treated with IV fluids). During admission, patient developed AFIB RVR; metoprolol IVP x 2 was given without positive effect. Patient was subsequently started on cardizem gtt. Patient was transitioned to PO Cardizem for rate control. During admission, patient c/o epigastric burning; CTAP was done which revealed duodenitis; patient was subsequently placed on ceftriaxone and metronidazole. GI was consulted and patient underwent an EGD. EGD revealed nonbleeding ulcers as well as possible Taylor's esophagus. Patient was placed on Protonix 40 mg BID in light of these findings. Furthermore, patient completed his methadone detox while he was admitted. Patient was not discharged on any rate control medication in light of sinus bradycardia appreciated on tele. Patient discharged on statin and BORA-Inhibitor in light of new diabetes diagnoses, hyperlipidemia, and proteinuria. Date of Discharge: 01/14/20 Minutes to complete discharge: 35 Discharge Summary Problems reviewed: Yes Reason For Visit: HYPERGLYCEMIA Current Active Problems PHILIP (acute kidney injury) (Acute) High anion gap metabolic acidosis (Acute) Hyperglycemia (Acute) Opioid dependence (Acute) PAF (paroxysmal atrial fibrillation) (Acute) Condition: Improved - Instructions Diet, Activity, Other Instructions: You presented to the hospital due to severely elevated blood sugar levels. You were found to have a condition called Diabetic ketoacidosis and were treated for this. You were also diagnosed with diabetes. You will be sent home on Insulin. A counselor has spoken to you today in regards to diabetic management and insulin use. Please taken insulin as directed below: Insulin Levemir 13 Units TWICE per day: 13 units in the morning and 13 units in the evening. Insulin Novolog (short acting insulin) 4 units three times per day with meals. You were also found to have some irregularities in your stomach that may be precancerous (Taylor's Esophagus). It is very important to follow up with your primary care doctor for this. You will need to have another EGD (endoscopy) in 8 weeks to follow this up. You have indicated that you prefer to follow up with a [facility] closer to your home. However, we have attached a referral to the specialist that performed your procedure here in case you would like to follow up with them. We have also prescribed you an antiacid medication to go home with: Protonix 40 mg. Please take this medication TWICE per day for 4 more days and then once per day. You julien also be started on two new medications for your high cholesterol and diabetes: Lisinopril 2.5 mg Daily and Atorvastatin 40 mg Daily. Please avoid foods high in carbohydrates, salt, and sugar. You were also found to have an irregular heart beat called atrial fibrillation. It is recommended that you follow up with your primary care doctor, Dr Herman this week as you may need to have a holter monitoring device to wear. This is a device you wear to assess your heart beat. You were also found to have a very slow heart rate. Please also follow up with your primary care doctor for this. You have indicated that your primary care doctor is Dr Herman at [facility]. We could not get in contact with this person. As an alternative, you may follow up with our clinic located at [facility] in [facility] for your primary care needs. A Referral has been provided for you in your discharge paper work. Please return to the emergency department immediately if you begin to experience chest pain, shortness of breath, nausea/vomiting, dizziness, or any other abnormal symptoms. Referrals: Dr. Ryan [Other] - 1 Week [facility] [place] [facility] [place] [Provider Group] - 1 Week Seven Allen DO [Staff Physician] - 03/10/20 Audi Andrea MD [Staff Physician] - 1 Week Disposition: HOME - Home Medications Comprehensive Discharge Medication List: Ambulatory Orders Atorvastatin Ca [Lipitor] 40 mg PO HS #30 tablet 01/14/20 Insulin (LOG) Aspart [NovoLOG -] 4 units SQ TIDAC #2 bottle 01/14/20 Insulin (Levemir) [Levemir Vial] 13 units SQ BID #2 vial 01/14/20 Lisinopril [Zestril] 2.5 mg PO DAILY #30 tablet 01/14/20 Miscellaneous Medical Supply [Outpatient Order] 1 each ASDIR #1 misc 01/14/20 Pantoprazole Sodium [Protonix -] 40 mg PO BID #60 tablet.ec 01/14/20 This patient is new to me today: No Emergency Visit: Yes ED Registration Date: 01/05/20 Care time: The patient presented to the Emergency Department on the above date and was hospitalized for further evaluation of their emergent condition. Critical Care patient: No - Discharge Referral Referred to [facility] No ATTENDING PHYSICIAN STATEMENT I saw and evaluated the patient. I reviewed the resident's note and discussed the case with the resident. I agree with the resident's findings and plan as documented. SUBJECTIVE: OBJECTIVE: ASSESSMENT AND PLAN:
--- NOTE | 2020-01-15 17:57 | PATH ---
Surgical Pathology Report Patient Name: AIDA ACEVEDO [facility]. Rec. #: [id number] /Age/Gender: 1960 (Age: 59) / M Account: [id number] Location: 4 W TELEMETRY U Taken: 01/11/2020 Received: 01/14/2020 Reported: 01/15/2020 Physicians: Heidi Phillips M.D. Specimen(s) Received A: ANTRUM AND BODY B: ESOPHAGEAL ULCER Clinical History Abnormal CT scan, burning sensation in esophagus Postoperative diagnosis: Esophagitis, gastritis, esophageal ulcers possible Taylor's Final Diagnosis A. STOMACH, ANTRUM AND BODY, BIOPSY: GASTRIC ANTRAL AND BODY MUCOSA WITH MILD CHRONIC GASTRITIS. IMMUNOHISTOCHEMICAL STAIN FOR H. PYLORI IS NEGATIVE. B. ESOPHAGEAL ULCER, BIOPSY: MARKEDLY INFLAMED AND ULCERATED MUCOSAL WALL. NO SQUAMOUS MUCOSA, COLUMNAR MUCOSA, OR INTESTINAL METAPLASIA IDENTIFIED. NO MALIGNANCY IDENTIFIED. PAS FUNGAL STAIN IS NEGATIVE. DEEPER LEVELS HAVE BEEN EXAMINED. Comment: Suggest clinical and endoscopic correlation. Positive and negative controls (internal if applicable) show appropriate results. Electronically Signed Teresa Sam M.D. Gross Description A. Received in formalin, labeled "biopsy antrum and body" are 3 dill, irregular portions of soft tissue ranging from 0.1-0.3 cm. in greatest dimension. The specimens are submitted in toto in one cassette. B. Received in formalin, labeled "biopsy esophageal ulcer" is a dill, irregular portion of soft tissue measuring 0.3 cm. in greatest dimension. The specimen is submitted in toto in one cassette. 01/14/2020 [facility]01/14/2020
== END 2020-01-14 13:44 | disposition home or self-care (01) | DRG 420 ==
LOC: JER 02:33 → JERBED 06:24 → UNDOADMIN 06:24 → JICU 01-06 19:37 → J4W 01-07 18:29
PROVIDERS: ADMIT Internal Medicine; ATTEND Internal Medicine
PROC: 0DB68ZX Excision of Stomach, Via Natural or Artificial Opening Endoscopic, Diagnostic (ICD-10-PCS; 2020-01-11)
PROC: 0DB58ZX Excision of Esophagus, Via Natural or Artificial Opening Endoscopic, Diagnostic (ICD-10-PCS; 2020-01-11)
PROC: 0DB98ZX Excision of Duodenum, Via Natural or Artificial Opening Endoscopic, Diagnostic (ICD-10-PCS; principal; 2020-01-11 14:00)
DX: E11.10 Type 2 diabetes mellitus with ketoacidosis without coma (principal); N17.9 Acute kidney failure, unspecified; F11.20 Opioid dependence, uncomplicated; E11.00 Type 2 diabetes mellitus with hyperosmolarity without nonketotic hyperglycemic-hyperosmolar coma (NKHHC); M62.82 Rhabdomyolysis; I48.0 Paroxysmal atrial fibrillation; K26.9 Duodenal ulcer, unspecified as acute or chronic, without hemorrhage or perforation; R13.10 Dysphagia, unspecified; K22.70 Barrett's esophagus without dysplasia; E11.65 Type 2 diabetes mellitus with hyperglycemia; Z79.84 Long term (current) use of oral hypoglycemic drugs; D72.829 Elevated white blood cell count, unspecified; E78.5 Hyperlipidemia, unspecified; E66.9 Obesity, unspecified; K29.80 Duodenitis without bleeding; K44.9 Diaphragmatic hernia without obstruction or gangrene; Z68.29 Body mass index [BMI] 29.0-29.9, adult
CPT/HCPCS: 36415; 71045-TC-FY; 74176-TC; 80048; 80053; 80061; 80307; 81003; 82010; 82550; 82553; 82565; 82803; 82962; 83036; 83605; 83721; 83735; 83930; 83935; 84100; 84156; 84300; 84443; 84484; 85025; 85027; 85610; 85730; 87040; 87086; 88305-TC; 93005; 93010; 93306-TC; 97116-GP; 97161-GP; 99285-25; U0003

== ENCOUNTER 2021-01-25 10:06 | Inpatient (IN) | payer OTHER ==
[2021-01-25 11:27] VITALS: BMI 33.2
[2021-01-25] MEDS ORDERED: IBUPROFEN 400 MG TABLET (FP) PO PRN (13:15)
[2021-01-25] MEDS ORDERED: cloNIDine HCL 0.1 MG TABLET PO PRN (13:15)
[2021-01-25] MEDS ORDERED: ONDANSETRON *ODT* 4 MG TABLET SL PRN (13:15)
[2021-01-25] MEDS ORDERED: methaDONE HCL 10 MG TABLET (FOR DETOX USE ONLY) PO ONE (13:15)
[2021-01-25] MEDS ORDERED: MAG HYDROX/AL HYDROX/SIMETH 30 ML UNIT-DOSE CUP PO PRN (13:15)
[2021-01-25] MEDS ORDERED: MAGNESIUM HYDROX 2400MG/30ML ORAL SUSPENSION 30 ML CUP PO PRN (13:15)
[2021-01-25] MEDS ORDERED: ACETAMINOPHEN 325 MG TABLET (FP) PO PRN ×2 (13:15)
[2021-01-25] MEDS ORDERED: MAGNESIUM CITRATE 300 ML BOTTLE PO PRN (13:15)
[2021-01-25] MEDS ORDERED: BISMUTH SUBSALICYLATE 524 MG/30 ML PO PRN (13:15)
[2021-01-25] MEDS ORDERED: MENTHOL/PHENOL 1 EACH UD MM PRN (13:15)
[2021-01-25] MEDS ORDERED: hydrOXYzine PAMOATE 25 MG CAPSULE (FP) PO SCH (14:00)
[2021-01-25] MEDS ORDERED: hydrOXYzine PAMOATE 25 MG CAPSULE (FP) PO PRN (14:38)
[2021-01-25] MEDS: METHOCARBAMOL 500 MG TABLET PO PRN (14:38)
[2021-01-25] MEDS: INSULIN SLIDING SCALE (NOVOLOG) 1 VIAL SQ SCH ×2 (18:13→23:48)
[2021-01-25] MEDS ORDERED: ATORVASTATIN CA 40 MG TABLET (FP) PO SCH (22:00)
[2021-01-25] MEDS: MELATONIN 5 MG TABLETS PO SCH (23:43)
[2021-01-25] MEDS: PANTOPRAZOLE 40 MG TABLET PO SCH (23:45)
[2021-01-25] MEDS: THIAMINE HCL 100 MG TABLET (FP) PO SCH (23:46)
[2021-01-26] MEDS: metFORMIN HCL 500 MG TABLET (FP) PO SCH (06:32)
[2021-01-26] MEDS: INSULIN SLIDING SCALE (NOVOLOG) 1 VIAL SQ SCH ×4 (07:43→22:00)
[2021-01-26] MEDS ORDERED: INSULIN SLIDING SCALE (NOVOLOG) 1 VIAL SQ ONE (07:44)
[2021-01-26] MEDS ORDERED: methaDONE HCL 10 MG TABLET (FOR DETOX USE ONLY) ONE (08:44)
[2021-01-26] MEDS: PRENATAL VITAMINS W/ FOLIC ACID TABLET (FP) PO SCH (10:09)
[2021-01-26] MEDS: PANTOPRAZOLE 40 MG TABLET PO SCH (10:09)
[2021-01-26 10:30] LABS: ALBUMIN 2.7 g/dl (3.4-5.0); BLOOD UREA NITROGEN 11.7 mg/dL (7-18); CALCIUM 7.8 mg/dL (8.5-10.1)
[2021-01-26 10:34] LABS: BILIRUBIN,TOTAL 0.5 mg/dL (0.2-1); HEMATOCRIT 38.2 % (35.4-49); HEMOGLOBIN 12.7 GM/dL (11.7-16.9); MCH 27.4 pg (25.7-33.7); MCHC 33.2 g/dl (32.0-35.9); MEAN CELL VOLUME 82.3 fl (80-96); MEAN PLT VOLUME 8.5 fl (7.5-11.1); PLATELET COUNT 166 10^3/uL (134-434); RBC 4.64 M/mm3 (4.00-5.60); RDW 12.9 % (11.9-15.9); WHITE BLOOD COUNT 4.5 K/mm3 (4.0-10.0)
[2021-01-26] MEDS: LISINOPRIL 5 MG TABLET PO SCH (11:59)
[2021-01-26] MEDS: ATORVASTATIN CA 10 MG TABLET (FP) PO SCH (21:56)
[2021-01-26] MEDS: MELATONIN 5 MG TABLETS PO SCH (21:56)
[2021-01-26] MEDS: INSULIN (LEVEMIR) 100 UNITS/ML UNITS SQ SCH (21:59)
[2021-01-26] MEDS: THIAMINE HCL 100 MG TABLET (FP) PO SCH (22:03)
[2021-01-27] MEDS: P-EPHED 60MG/TRIPROLIDI 2.5MG TABLET PO PRN (03:48)
[2021-01-27] MEDS: metFORMIN HCL 500 MG TABLET (FP) PO SCH (06:18)
[2021-01-27] MEDS: INSULIN SLIDING SCALE (NOVOLOG) 1 VIAL SQ SCH ×4 (06:20→22:34)
[2021-01-27] MEDS ORDERED: metFORMIN HCL 500 MG TABLET (FP) PO SCH (07:00)
[2021-01-27] MEDS ORDERED: LISINOPRIL 5 MG TABLET PO SCH (10:00)
[2021-01-27] MEDS ORDERED: methaDONE HCL 10 MG TABLET (FOR DETOX USE ONLY) PO ONE (10:00)
[2021-01-27] MEDS: INSULIN (LEVEMIR) 100 UNITS/ML UNITS SQ SCH ×2 (10:14→22:34)
[2021-01-27] MEDS: LISINOPRIL 5 MG TABLET PO SCH (10:25)
[2021-01-27] MEDS: PRENATAL VITAMINS W/ FOLIC ACID TABLET (FP) PO SCH (10:25)
[2021-01-27] MEDS ORDERED: INSULIN (LEVEMIR) 100 UNITS/ML UNITS SQ ONE (11:26)
[2021-01-27] MEDS: MELATONIN 5 MG TABLETS PO SCH (22:33)
[2021-01-27] MEDS: THIAMINE HCL 100 MG TABLET (FP) PO SCH (22:33)
[2021-01-27] MEDS: ATORVASTATIN CA 10 MG TABLET (FP) PO SCH (22:33)
[2021-01-28] MEDS: metFORMIN HCL 500 MG TABLET (FP) PO SCH (06:48)
[2021-01-28] MEDS: INSULIN SLIDING SCALE (NOVOLOG) 1 VIAL SQ SCH ×2 (06:57→12:45)
[2021-01-28] MEDS ORDERED: methaDONE HCL 10 MG TABLET (FOR DETOX USE ONLY) ONE (09:47)
[2021-01-28] MEDS: PRENATAL VITAMINS W/ FOLIC ACID TABLET (FP) PO SCH (10:08)
[2021-01-28] MEDS: LISINOPRIL 5 MG TABLET PO SCH (10:08)
[2021-01-28] MEDS: METHOCARBAMOL 500 MG TABLET PO PRN (10:08)
[2021-01-28] MEDS: INSULIN (LEVEMIR) 100 UNITS/ML UNITS SQ SCH (10:09)
[2021-01-28] MEDS: P-EPHED 60MG/TRIPROLIDI 2.5MG TABLET PO PRN (10:13)
[2021-01-28 14:12] VITALS: BP 128/72; PULSE 54; TEMP 97.3
[2021-01-29] MEDS ORDERED: methaDONE HCL 10 MG TABLET (FOR DETOX USE ONLY) PO ONE (10:00)
== END 2021-01-28 15:35 | disposition left against medical advice (07) | DRG 770 ==
LOC: YASAS 10:06 → Y3N 14:09
PROVIDERS: ADMIT Allergy & Immunology; ATTEND Allergy & Immunology
PROC: HZ2ZZZZ Detoxification Services for Substance Abuse Treatment (ICD-10-PCS; principal; 2021-01-25)
DX: F11.23 Opioid dependence with withdrawal (principal); E11.9 Type 2 diabetes mellitus without complications; Z79.4 Long term (current) use of insulin; Z86.11 Personal history of tuberculosis
CPT/HCPCS: 36415; 71046-TC-FY; 80053; 82962; 85027; 86780; C9803; J0735; U0003; U0005

== ENCOUNTER 2021-04-01 08:26 | Inpatient (IN) | payer OTHER ==
[2021-04-01 09:18] VITALS: BMI 34.1
[2021-04-01] MEDS ORDERED: methaDONE HCL 10 MG TABLET (FOR DETOX USE ONLY) PO ONE (09:54)
[2021-04-01] MEDS ORDERED: IBUPROFEN 400 MG TABLET (FP) PO PRN (09:54)
[2021-04-01] MEDS ORDERED: MAGNESIUM HYDROX 2400MG/30ML ORAL SUSPENSION 30 ML CUP PO PRN (09:54)
[2021-04-01] MEDS ORDERED: ONDANSETRON *ODT* 4 MG TABLET SL PRN (09:54)
[2021-04-01] MEDS ORDERED: BISMUTH SUBSALICYLATE 262 MG/15 ML BTL PO PRN (09:54)
[2021-04-01] MEDS ORDERED: NICOTINE 10 MG CARTRIDGE (INHALER) IH PRN (09:54)
[2021-04-01] MEDS ORDERED: cloNIDine HCL 0.1 MG TABLET PO PRN (09:54)
[2021-04-01] MEDS ORDERED: MAGNESIUM CITRATE 300 ML BOTTLE PO PRN (09:54)
[2021-04-01] MEDS ORDERED: MAG HYDROX/AL HYDROX/SIMETH 30 ML UNIT-DOSE CUP PO PRN (09:54)
[2021-04-01] MEDS ORDERED: ACETAMINOPHEN 325 MG TABLET (FP) PO PRN ×2 (09:54)
[2021-04-01] MEDS ORDERED: MENTHOL/PHENOL 1 EACH UD MM PRN (09:54)
[2021-04-01] MEDS: hydrOXYzine PAMOATE 25 MG CAPSULE (FP) PO SCH ×4 (10:15→22:43)
[2021-04-01] MEDS: PRENATAL VITAMINS W/ FOLIC ACID TABLET (FP) PO SCH (10:15)
[2021-04-01 13:55] LABS: HEMATOCRIT 39.8 % (35.4-49); MCH 27.1 pg (25.7-33.7); MCHC 32.8 g/dl (32.0-35.9); MEAN CELL VOLUME 82.8 fl (80-96); MEAN PLT VOLUME 8.7 fl (7.5-11.1); PLATELET COUNT 212 10^3/uL (134-434); RBC 4.81 M/mm3 (4.00-5.60); RDW 13.7 % (11.9-15.9); WHITE BLOOD COUNT 6.5 K/mm3 (4.0-10.0)
[2021-04-01 14:36] LABS: CALCIUM 8.7 mg/dL (8.5-10.1)
[2021-04-01 14:37] LABS: ALBUMIN 3.7 g/dl (3.4-5.0); BLOOD UREA NITROGEN 8.3 mg/dL (7-18)
[2021-04-01 14:40] LABS: CREATININE 0.9 mg/dL (0.55-1.3)
[2021-04-01 14:41] LABS: BILIRUBIN,TOTAL 0.4 mg/dL (0.2-1)
[2021-04-01 14:42] LABS: TOT PROT 7.3 g/dl (6.4-8.2)
[2021-04-01] MEDS: MELATONIN 5 MG TABLETS PO SCH (22:41)
[2021-04-01] MEDS: ATORVASTATIN CA 10 MG TABLET (FP) PO SCH (22:43)
[2021-04-01] MEDS: THIAMINE HCL 100 MG TABLET (FP) PO SCH (22:44)
[2021-04-02] MEDS ORDERED: metFORMIN HCL 500 MG TABLET (FP) PO SCH (07:00)
[2021-04-02] MEDS: PRENATAL VITAMINS W/ FOLIC ACID TABLET (FP) PO SCH (10:11)
[2021-04-02] MEDS: LISINOPRIL 5 MG TABLET PO SCH (10:12)
[2021-04-02] MEDS: hydrOXYzine PAMOATE 25 MG CAPSULE (FP) PO SCH ×3 (10:12→22:51)
[2021-04-02] MEDS ORDERED: methaDONE HCL 10 MG TABLET (FOR DETOX USE ONLY) ONE (10:15)
[2021-04-02] MEDS ORDERED: FLU VACC QS2021-22(6MOS UP)/PF 60 MCG/0.5 ML SYRINGE IM ONE (12:00)
[2021-04-02] MEDS: metFORMIN HCL 500 MG TABLET (FP) PO SCH (18:08)
[2021-04-02] MEDS: METHOCARBAMOL 500 MG TABLET PO PRN (18:08)
[2021-04-02] MEDS: MELATONIN 5 MG TABLETS PO SCH (22:51)
[2021-04-02] MEDS: ATORVASTATIN CA 10 MG TABLET (FP) PO SCH (22:51)
[2021-04-02] MEDS: THIAMINE HCL 100 MG TABLET (FP) PO SCH (22:51)
[2021-04-03] MEDS: hydrOXYzine PAMOATE 25 MG CAPSULE (FP) PO SCH ×6 (01:30→22:22)
[2021-04-03] MEDS: metFORMIN HCL 500 MG TABLET (FP) PO SCH ×2 (07:13→18:26)
[2021-04-03] MEDS ORDERED: methaDONE HCL 10 MG TABLET (FOR DETOX USE ONLY) PO ONE (10:00)
[2021-04-03] MEDS: PRENATAL VITAMINS W/ FOLIC ACID TABLET (FP) PO SCH (11:53)
[2021-04-03] MEDS: LISINOPRIL 5 MG TABLET PO SCH (11:53)
[2021-04-03] MEDS: THIAMINE HCL 100 MG TABLET (FP) PO SCH (22:22)
[2021-04-03] MEDS: MELATONIN 5 MG TABLETS PO SCH (22:22)
[2021-04-03] MEDS: ATORVASTATIN CA 10 MG TABLET (FP) PO SCH (22:22)
[2021-04-04] MEDS: hydrOXYzine PAMOATE 25 MG CAPSULE (FP) PO SCH ×5 (06:07→22:34)
[2021-04-04] MEDS: metFORMIN HCL 500 MG TABLET (FP) PO SCH ×2 (07:18→16:42)
[2021-04-04] MEDS ORDERED: methaDONE HCL 10 MG TABLET (FOR DETOX USE ONLY) ONE (09:27)
[2021-04-04] MEDS: PRENATAL VITAMINS W/ FOLIC ACID TABLET (FP) PO SCH (10:08)
[2021-04-04] MEDS: LISINOPRIL 5 MG TABLET PO SCH (10:08)
[2021-04-04] MEDS ORDERED: INSULIN (NOVOLOG) ASPART 100 UNITS/ML 10ML VIAL ONE (16:41)
[2021-04-04] MEDS: INSULIN SLIDING SCALE (NOVOLOG) 1 VIAL SQ SCH (16:43)
[2021-04-04] MEDS: ATORVASTATIN CA 10 MG TABLET (FP) PO SCH (22:34)
[2021-04-04] MEDS: MELATONIN 5 MG TABLETS PO SCH (22:34)
[2021-04-04] MEDS: THIAMINE HCL 100 MG TABLET (FP) PO SCH (22:34)
[2021-04-05] MEDS ORDERED: INSULIN (NOVOLOG) ASPART 100 UNITS/ML 10ML VIAL ONE ×2 (06:40→16:44)
[2021-04-05] MEDS: metFORMIN HCL 500 MG TABLET (FP) PO SCH ×2 (07:40→16:45)
[2021-04-05] MEDS: hydrOXYzine PAMOATE 25 MG CAPSULE (FP) PO SCH ×5 (07:40→22:08)
[2021-04-05] MEDS: INSULIN SLIDING SCALE (NOVOLOG) 1 VIAL SQ SCH ×2 (07:41→16:42)
[2021-04-05] MEDS ORDERED: methaDONE HCL 10 MG TABLET (FOR DETOX USE ONLY) PO ONE (10:00)
[2021-04-05] MEDS: PRENATAL VITAMINS W/ FOLIC ACID TABLET (FP) PO SCH (10:18)
[2021-04-05] MEDS: LISINOPRIL 5 MG TABLET PO SCH (10:18)
[2021-04-05] MEDS: METHOCARBAMOL 500 MG TABLET PO PRN (10:18)
[2021-04-05] MEDS: ATORVASTATIN CA 10 MG TABLET (FP) PO SCH (22:08)
[2021-04-05] MEDS: THIAMINE HCL 100 MG TABLET (FP) PO SCH (22:08)
[2021-04-05] MEDS: MELATONIN 5 MG TABLETS PO SCH (22:09)
[2021-04-06] MEDS: hydrOXYzine PAMOATE 25 MG CAPSULE (FP) PO SCH ×2 (06:29→10:46)
[2021-04-06] MEDS: metFORMIN HCL 500 MG TABLET (FP) PO SCH (06:30)
[2021-04-06] MEDS ORDERED: INSULIN (NOVOLOG) ASPART 100 UNITS/ML 10ML VIAL ONE (07:40)
[2021-04-06] MEDS: INSULIN SLIDING SCALE (NOVOLOG) 1 VIAL SQ SCH (07:47)
[2021-04-06 09:31] VITALS: BP 129/78; PULSE 73; TEMP 97.8
[2021-04-06] MEDS: PRENATAL VITAMINS W/ FOLIC ACID TABLET (FP) PO SCH (10:46)
[2021-04-06] MEDS: LISINOPRIL 5 MG TABLET PO SCH (10:46)
== END 2021-04-06 10:10 | disposition home or self-care (01) | DRG 773 ==
LOC: YASAS 08:26 → Y6N 10:19
PROVIDERS: ADMIT Allergy & Immunology; ATTEND Allergy & Immunology
PROC: HZ2ZZZZ Detoxification Services for Substance Abuse Treatment (ICD-10-PCS; principal; 2021-04-01)
DX: F11.23 Opioid dependence with withdrawal (principal); I48.0 Paroxysmal atrial fibrillation; I10 Essential (primary) hypertension; E11.65 Type 2 diabetes mellitus with hyperglycemia; N17.9 Acute kidney failure, unspecified; R10.826 Epigastric rebound abdominal tenderness; E66.9 Obesity, unspecified; Z68.34 Body mass index [BMI] 34.0-34.9, adult; Z86.11 Personal history of tuberculosis; Z79.84 Long term (current) use of oral hypoglycemic drugs; Z86.59 Personal history of other mental and behavioral disorders; Z56.0 Unemployment, unspecified
CPT/HCPCS: 36415; 80053; 82962; 85027; 86780; 90686; C9803; G0008; U0003; U0005

== ENCOUNTER 2022-05-13 11:49 | Inpatient (IN) | payer OTHER ==
[2022-05-13 12:27] VITALS: BMI 30.4
[2022-05-13] MEDS ORDERED: cloNIDine HCL 0.1 MG TABLET PO PRN (13:02)
[2022-05-13] MEDS ORDERED: IBUPROFEN 400 MG TABLET (FP) PO PRN (13:02)
[2022-05-13] MEDS ORDERED: LOPERAMIDE HCL 2 MG CAPSULE PO PRN (13:02)
[2022-05-13] MEDS ORDERED: IBUPROFEN 600 MG TABLET (FP) PO PRN (13:02)
[2022-05-13] MEDS ORDERED: BENZOCAINE/MENTHOL (CHLORASEPTIC ) LOZENGE MM PRN (13:02)
[2022-05-13] MEDS ORDERED: MAG HYDROX/AL HYDROX/SIMETH 30 ML UNIT-DOSE CUP PO PRN (13:02)
[2022-05-13] MEDS ORDERED: BISMUTH SUBSALICYLATE 524 MG/30 ML PO PRN (13:02)
[2022-05-13] MEDS ORDERED: POLYETHYLENE GLYCOL (HEALTHYLAX) 3350 17 GM PACKET PO PRN (13:02)
[2022-05-13] MEDS ORDERED: hydrOXYzine PAMOATE 25 MG CAPSULE (FP) PO PRN (13:02)
[2022-05-13] MEDS ORDERED: NALOXONE HCL (KLOXXADO) 8 MG SPRAY NS PRN (13:02)
[2022-05-13] MEDS ORDERED: ACETAMINOPHEN 325 MG TABLET (FP) PO PRN ×2 (13:02)
[2022-05-13] MEDS ORDERED: ONDANSETRON *ODT* 4 MG TABLET SL PRN (13:02)
[2022-05-13] MEDS ORDERED: MAGNESIUM HYDROX 2400MG/30ML ORAL SUSPENSION 30 ML CUP PO PRN (13:02)
[2022-05-13] MEDS ORDERED: DICYCLOMINE HCL 10 MG CAPSULE PO PRN (13:02)
[2022-05-13] MEDS ORDERED: NICOTINE 10 MG CARTRIDGE (INHALER) IH PRN (13:02)
[2022-05-13] MEDS ORDERED: PATIENT'S OWN MEDICATION (NON-FORMULARY) (Lisinopril [Zestril] 2.5 MG Tablet) PO SCH (13:15)
[2022-05-13] MEDS ORDERED: methaDONE HCL 10 MG TABLET (FOR DETOX USE ONLY) PO ONE (13:45)
[2022-05-13] MEDS ORDERED: methaDONE HCL 10 MG TABLET (FOR DETOX USE ONLY) ONE (14:02)
[2022-05-13] MEDS ORDERED: cloNIDine HCL 0.1 MG TABLET ONE (14:03)
[2022-05-13] MEDS ORDERED: PRENATAL VITAMINS W/ FOLIC ACID TABLET (FP) PO ONE (14:03)
[2022-05-13] MEDS: PRENATAL VITAMINS W/ FOLIC ACID TABLET (FP) PO SCH (14:23)
[2022-05-13 17:38] LABS: HEMATOCRIT 35.7 % (35.4-49); HEMOGLOBIN 11.4 GM/dL (11.7-16.9); MCH 26.7 pg (25.7-33.7); MEAN CELL VOLUME 83.5 fl (80-96); MEAN PLT VOLUME 8.7 fl (7.5-11.1); PLATELET COUNT 241 10^3/uL (134-434); RBC 4.27 M/mm3 (4.00-5.60); RDW 14.2 % (11.9-15.9); WHITE BLOOD COUNT 5.1 K/mm3 (4.0-10.0)
[2022-05-13] MEDS: LISINOPRIL 5 MG TABLET PO SCH (17:46)
[2022-05-13] MEDS: metFORMIN HCL 500 MG TABLET (FP) PO SCH (17:48)
[2022-05-13 17:56] LABS: ALBUMIN 3.5 g/dl (3.4-5.0); CALCIUM 8.9 mg/dL (8.5-10.1)
[2022-05-13 17:57] LABS: BLOOD UREA NITROGEN 17.7 mg/dL (7-18)
[2022-05-13 17:58] LABS: CREATININE 0.9 mg/dL (0.55-1.3)
[2022-05-13 17:59] LABS: BILIRUBIN,TOTAL 0.2 mg/dL (0.2-1)
[2022-05-13 18:00] LABS: TOT PROT 7.1 g/dl (6.4-8.2)
[2022-05-13] MEDS: MELATONIN 5 MG TABLETS PO SCH (22:45)
[2022-05-13] MEDS: ATORVASTATIN CA 10 MG TABLET (FP) PO SCH (22:45)
[2022-05-13] MEDS: THIAMINE HCL 100 MG TABLET (FP) PO SCH (22:45)
[2022-05-13] MEDS: METHOCARBAMOL 500 MG TABLET PO PRN (22:45)
[2022-05-14] MEDS: metFORMIN HCL 500 MG TABLET (FP) PO SCH ×2 (07:30→17:38)
[2022-05-14] MEDS: LISINOPRIL 5 MG TABLET PO SCH (10:07)
[2022-05-14] MEDS: PRENATAL VITAMINS W/ FOLIC ACID TABLET (FP) PO SCH (10:07)
[2022-05-14] MEDS: P-EPHED 60MG/TRIPROLIDI 2.5MG TABLET PO PRN (19:06)
[2022-05-14] MEDS: ATORVASTATIN CA 10 MG TABLET (FP) PO SCH (22:53)
[2022-05-14] MEDS: MELATONIN 5 MG TABLETS PO SCH (22:54)
[2022-05-14] MEDS: THIAMINE HCL 100 MG TABLET (FP) PO SCH (22:54)
[2022-05-15] MEDS: metFORMIN HCL 500 MG TABLET (FP) PO SCH (07:36)
[2022-05-15 09:51] VITALS: BP 137/63; PULSE 55; RESP 19; TEMP 97.8
[2022-05-15] MEDS ORDERED: methaDONE HCL 10 MG TABLET (FOR DETOX USE ONLY) PO ONE (10:00)
[2022-05-15] MEDS: LISINOPRIL 5 MG TABLET PO SCH (10:07)
[2022-05-15] MEDS: PRENATAL VITAMINS W/ FOLIC ACID TABLET (FP) PO SCH (10:07)
[2022-05-15] MEDS: METHOCARBAMOL 500 MG TABLET PO PRN (10:11)
[2022-05-15] MEDS: P-EPHED 60MG/TRIPROLIDI 2.5MG TABLET PO PRN (10:11)
[2022-05-17] MEDS ORDERED: methaDONE HCL 10 MG TABLET (FOR DETOX USE ONLY) PO ONE (10:00)
== END 2022-05-15 12:04 | disposition left against medical advice (07) | DRG 770 ==
LOC: YASAS 11:49 → Y3N 14:24
PROVIDERS: ADMIT Allergy & Immunology; ATTEND Family Medicine
PROC: HZ2ZZZZ Detoxification Services for Substance Abuse Treatment (ICD-10-PCS; principal; 2022-05-13)
DX: F11.23 Opioid dependence with withdrawal (principal); F41.9 Anxiety disorder, unspecified; F32.A Depression, unspecified; E78.5 Hyperlipidemia, unspecified; I10 Essential (primary) hypertension; E11.9 Type 2 diabetes mellitus without complications; Z79.84 Long term (current) use of oral hypoglycemic drugs
CPT/HCPCS: 36415; 80053; 82962; 85027; 86780; C9803-CS; U0003; U0005